=== PATIENT | male | born 1945 | race Caucasian/White ===

== ENCOUNTER → 2017-11-10 08:41 | Outpatient (CLI) | payer MEDICARE, BC, SELFPAY ==
[2017-11-10 09:51] LABS: Alanine Aminotransferase 37 U/L (12-78); Albumin Level 3.7 gm/dL (3.4-5.0); Albumin/Globulin Ratio 1.1 (1.1-1.8); Alkaline Phosphatase 78 U/L (46-116); Anion Gap 10.5 mEq/L (5-15); Aspartate Amino Transferase 14 U/L (15-37); Bilirubin,Total 0.5 mg/dL (0.2-1.0); Blood Urea Nitrogen 18 mg/dL (7-18); Calcium 9.1 mg/dL (8.5-10.1); Carbon Dioxide 32 mmol/L (21.0-32.0); Chloride 105 mmol/L (98-107); Chol/HDL Ratio 2.6 (1-3.5); Cholesterol 155 mg/dL (140-200); Creatinine,Serum 0.77 mg/dL (0.70-1.30); Estimated Glomerular Filt Rate 100 ml/min (>60); GFR (African American) 121 ML/MIN (>60); Globulin 3.5 gm/dl (1.3-3.2); Glucose 114 mg/dL (74-106); HDL Cholesterol 60 mg/dL (27-67); LDL Cholesterol 81 mg/dL (0-130); Potassium 4.5 mmoL/L (3.5-5.1); Sodium 143 mmol/L (136-145); Total Protein,Serum 7.2 gm/dL (6.4-8.2); Triglycerides 70 mg/dL (30-200); VLDL Cholesterol 14 mg/dL (0-40)
== END ==
PROVIDERS: Visit Provider Nurse Practitioner Family
DX: E78.5 Hyperlipidemia, unspecified (principal); I10 Essential (primary) hypertension
CPT/HCPCS: 36415; 80053; 80061

== ENCOUNTER → 2018-02-16 08:11 | Outpatient (CLI) | payer MEDICARE, BC, SELFPAY ==
[2018-02-16 09:10] LABS: Alanine Aminotransferase 31 U/L (12-78); Albumin Level 3.6 gm/dL (3.4-5.0); Albumin/Globulin Ratio 1.2 (1.1-1.8); Alkaline Phosphatase 76 U/L (46-116); Anion Gap 9.7 mEq/L (5-15); Aspartate Amino Transferase 21 U/L (15-37); Bilirubin,Total 0.6 mg/dL (0.2-1.0); Blood Urea Nitrogen 26 mg/dL (7-18); Calcium 8.9 mg/dL (8.5-10.1); Carbon Dioxide 30 mmol/L (21.0-32.0); Chloride 106 mmol/L (98-107); Chol/HDL Ratio 2.9 (1-3.5); Cholesterol 172 mg/dL (140-200); Creatinine,Serum 0.83 mg/dL (0.70-1.30); Estimated Glomerular Filt Rate 91 ml/min (>60); GFR (African American) 111 ML/MIN (>60); Glucose 111 mg/dL (74-106); HDL Cholesterol 59 mg/dL (27-67); LDL Cholesterol 100 mg/dL (0-130); Potassium 4.7 mmoL/L (3.5-5.1); Sodium 141 mmol/L (136-145); Total Protein,Serum 6.6 gm/dL (6.4-8.2); Triglycerides 64 mg/dL (30-200); VLDL Cholesterol 13 mg/dL (0-40)
[2018-02-16 09:13] LABS: Hemoglobin A1C 5.7 % (0.0-7.0)
== END ==
PROVIDERS: Visit Provider Nurse Practitioner Family
DX: E78.5 Hyperlipidemia, unspecified (principal); Z79.899 Other long term (current) drug therapy
CPT/HCPCS: 36415; 80053; 80061; 83036

== ENCOUNTER → 2018-03-02 09:00 | Outpatient (CLI) | payer MEDICARE, BC, SELFPAY ==
--- NOTE | 2018-03-02 09:02 | XR_ITS ---
XR foot wt bearing RT 3V HISTORY: ITS.REASON: pain ORDERING PHYSICIAN: Susanne Stauffer DPM PATIENT AGE: 72 years COMPARISON: None FINDINGS: No fracture or dislocation. No lytic or blastic change. There is normal mineralization.. The joint spaces are well-preserved. No significant degenerative/arthritic changes. No erosive changes evident. IMPRESSION: Negative, no acute finding
--- NOTE | 2018-03-02 09:02 | XR_ITS ---
XR foot wt bearing LT 3V HISTORY: ITS.REASON: pain ORDERING PHYSICIAN: Susanne Stauffer DPM PATIENT AGE: 72 years COMPARISON: None FINDINGS: No fracture or dislocation. No lytic or blastic change. There is normal mineralization.. The joint spaces are well-preserved. No significant degenerative/arthritic changes. No erosive changes evident. IMPRESSION: Negative, no acute finding
== END ==
PROVIDERS: Visit Provider Podiatrist
DX: M21.619 Bunion of unspecified foot (principal)
CPT/HCPCS: 73630

== ENCOUNTER → 2018-05-22 08:35 | Outpatient (CLI) | payer MEDICARE, BC, SELFPAY ==
[2018-05-22 09:38] LABS: Alanine Aminotransferase 29 U/L (12-78); Albumin Level 3.4 gm/dL (3.4-5.0); Albumin/Globulin Ratio 1.1 (1.1-1.8); Alkaline Phosphatase 77 U/L (46-116); Anion Gap 8.7 mEq/L (5-15); Aspartate Amino Transferase 16 U/L (15-37); Bilirubin,Total 0.6 mg/dL (0.2-1.0); Blood Urea Nitrogen 15 mg/dL (7-18); Calcium 8.8 mg/dL (8.5-10.1); Carbon Dioxide 32 mmol/L (21.0-32.0); Chloride 109 mmol/L (98-107); Chol/HDL Ratio 2.7 (1-3.5); Cholesterol 158 mg/dL (140-200); Creatinine,Serum 0.81 mg/dL (0.70-1.30); Estimated Glomerular Filt Rate 94 ml/min (>60); GFR (African American) 113 ML/MIN (>60); Glucose 94 mg/dL (74-106); HDL Cholesterol 58 mg/dL (27-67); LDL Cholesterol 79 mg/dL (0-130); Potassium 4.7 mmoL/L (3.5-5.1); Sodium 145 mmol/L (136-145); Total Protein,Serum 6.4 gm/dL (6.4-8.2); Triglycerides 103 mg/dL (30-200); VLDL Cholesterol 21 mg/dL (0-40)
== END ==
PROVIDERS: PCP Nurse Practitioner Family; Visit Provider Nurse Practitioner Family
DX: E78.5 Hyperlipidemia, unspecified (principal); I10 Essential (primary) hypertension
CPT/HCPCS: 36415; 80053; 80061

== ENCOUNTER → 2018-08-31 08:14 | Outpatient (CLI) | payer MEDICARE, BC, SELFPAY ==
[2018-08-31 09:36] LABS: Alanine Aminotransferase 38 U/L (12-78); Albumin Level 3.6 gm/dL (3.4-5.0); Albumin/Globulin Ratio 1.2 (1.1-1.8); Alkaline Phosphatase 79 U/L (46-116); Anion Gap 12.3 mEq/L (5-15); Aspartate Amino Transferase 22 U/L (15-37); Bilirubin,Total 0.6 mg/dL (0.2-1.0); Blood Urea Nitrogen 23 mg/dL (7-18); Calcium 8.7 mg/dL (8.5-10.1); Carbon Dioxide 28 mmol/L (21.0-32.0); Chloride 106 mmol/L (98-107); Chol/HDL Ratio 2.7 (1-3.5); Cholesterol 182 mg/dL (140-200); Creatinine,Serum 0.85 mg/dL (0.70-1.30); Estimated Glomerular Filt Rate 89 ml/min (>60); GFR (African American) 107 ML/MIN (>60); Globulin 3.1 gm/dl (1.3-3.2); Glucose 104 mg/dL (74-106); HDL Cholesterol 67 mg/dL (27-67); LDL Cholesterol 100 mg/dL (0-130); Potassium 4.3 mmoL/L (3.5-5.1); Sodium 142 mmol/L (136-145); Total Protein,Serum 6.7 gm/dL (6.4-8.2); Triglycerides 74 mg/dL (30-200); VLDL Cholesterol 15 mg/dL (0-40)
== END ==
PROVIDERS: Visit Provider Nurse Practitioner Family
DX: E78.5 Hyperlipidemia, unspecified (principal); I10 Essential (primary) hypertension
CPT/HCPCS: 36415; 80053; 80061

== ENCOUNTER → 2018-09-28 09:43 | Outpatient (CLI) | payer MEDICARE, BC, SELFPAY ==
[2018-09-30 11:59] LABS: PSA, Free 0.87 ng/mL; Prostate Specific Ag 5.4 ng/mL (0.0-4.0)
== END ==
PROVIDERS: Visit Provider Urology
DX: R97.20 Elevated prostate specific antigen [PSA] (principal)
CPT/HCPCS: 36415; 84153; 84154

== ENCOUNTER → 2018-12-07 08:13 | Outpatient (CLI) | payer MEDICARE, BC, SELFPAY ==
[2018-12-07 08:51] LABS: Basophils % 0.4 % (0.1-2.0); Eosinophils # 0.1 K/mm3 (0.0-0.4); Eosinophils % 1.6 % (0.1-12.0); Hematocrit 44.9 % (42.0-52.0); Hemoglobin 15.1 g/dL (14.1-18.0); Lymphocytes # 1.2 K/mm3 (0.7-4.5); Lymphocytes % 21.8 % (10-50); Mean Corpuscular HGB Conc 33.7 g/dL (31.8-35.4); Mean Corpuscular Hemoglobin 32.6 pg (27.0-31.2); Mean Corpuscular Volume 96.8 fl (80-94); Mean Platelet Volume 9.2 fl (7.4-10.4); Monocytes # 0.3 K/mm3 (0.1-1.0); Monocytes % 4.7 % (1.7-9.3); Neutrophils % 71.4 % (37.0-80.0); Platelet Count 157 K/mm3 (142-424); Red Blood Count 4.64 M/mm3 (4.60-6.20); Red Cell Distribution Width 12.9 % (11.5-17.5); White Blood Count 5.6 K/mm3 (4.8-10.8)
[2018-12-07 09:55] LABS: Alanine Aminotransferase 31 U/L (12-78); Albumin Level 3.7 gm/dL (3.4-5.0); Albumin/Globulin Ratio 1.2 (1.1-1.8); Alkaline Phosphatase 77 U/L (46-116); Anion Gap 13.3 mEq/L (5-15); Aspartate Amino Transferase 22 U/L (15-37); Bilirubin,Total 0.6 mg/dL (0.2-1.0); Blood Urea Nitrogen 19 mg/dL (7-18); Calcium 8.9 mg/dL (8.5-10.1); Carbon Dioxide 27 mmol/L (21.0-32.0); Chloride 106 mmol/L (98-107); Chol/HDL Ratio 2.8 (1-3.5); Cholesterol 167 mg/dL (140-200); Creatinine,Serum 0.84 mg/dL (0.70-1.30); Estimated Glomerular Filt Rate 90 ml/min (>60); GFR (African American) 109 ML/MIN (>60); Globulin 3.2 gm/dl (1.3-3.2); Glucose 117 mg/dL (74-106); HDL Cholesterol 59 mg/dL (27-67); LDL Cholesterol 97 mg/dL (0-130); Potassium 4.3 mmoL/L (3.5-5.1); Sodium 142 mmol/L (136-145); Total Protein,Serum 6.9 gm/dL (6.4-8.2); Triglycerides 57 mg/dL (30-200); VLDL Cholesterol 11 mg/dL (0-40)
== END ==
PROVIDERS: Visit Provider Nurse Practitioner Family
DX: J44.9 Chronic obstructive pulmonary disease, unspecified (principal); E78.5 Hyperlipidemia, unspecified; I10 Essential (primary) hypertension
CPT/HCPCS: 36415; 80053; 80061; 85025

== ENCOUNTER → 2018-12-11 11:40 | Outpatient (CLI) | payer MEDICARE, BC, SELFPAY ==
--- NOTE | 2018-12-11 11:46 | XR_ITS ---
XR chest 2V HISTORY: Follow-up asbestos exposure ITS.REASON: COPD ORDERING PHYSICIAN: Jacqueline Beck PATIENT AGE: 73 years COMPARISON: 08/15/2017 FINDINGS: The cardiomediastinal silhouette and pulmonary vascularity are within normal limits. Increased markings are present in the right lung base medially. This is somewhat more prominent today compared to the previous exam and could be related to the technique with slight decrease in inspiration. True parenchymal pathology however is also considered. Chest CT may be of further value in this patient with history of asbestos exposure. No other significant anomalies are evident. There are degenerative changes in the thoracic spine. No pleural or diaphragmatic calcification apparent. IMPRESSION: Slight increased markings right lung base medially which may be related underlying infiltrate or volume loss. Follow-up suggested
== END ==
PROVIDERS: PCP Nurse Practitioner Family; Visit Provider Nurse Practitioner Family
DX: J44.9 Chronic obstructive pulmonary disease, unspecified (principal)
CPT/HCPCS: 71046

== ENCOUNTER → 2018-12-22 12:04 | Outpatient (CLI) | payer MEDICARE, BC, SELFPAY ==
[2018-12-22 12:48] LABS: Blood Urea Nitrogen 17 mg/dL (7-18); Creatinine,Serum 0.91 mg/dL (0.70-1.30); Estimated Glomerular Filt Rate 82 ml/min (>60); GFR (African American) 99 ML/MIN (>60)
--- NOTE | 2018-12-22 12:54 | CT_ITS ---
CT chest w con HISTORY: COPD, asbestos exposure, abnormal chest x-ray, possible interstitial lung disease ITS.REASON: ABNORMAL CXR ORDERING PHYSICIAN: Jacqueline Beck APRN PATIENT AGE: 73 years COMPARISON: None TECHNIQUE: Axial images obtained following the administration of 75 mL of Optiray 350 . Sagittal, and coronal reformatted images are also generated and reviewed. All CT scans at the facility use one or more dose reduction, viz: automated exposure control, ma/kV adjustment per patient size (including targeted exams where dose is matched to indication, i.e. head), or iterative reconstruction technique. FINDINGS: Atheromatous calcification involves the aorta. No evidence of aortic aneurysm or dissection. There are coronary artery calcifications also noted. Normal heart size. No evidence of central pulmonary embolus. No mediastinal or hilar mass or adenopathy. There is a 4 mm noncalcified nodule right lower lobe posterior laterally series 3 # 58. A calcified granuloma is present in the right lung base. No evidence of the initial lung disease infiltrates or effusions. There are minimal atelectatic changes in the left lung base. No acute bony anomalies. IMPRESSION: 1. No acute finding. No evidence of interstitial lung disease or pleural or diaphragmatic plaque or calcification.. 2. Coronary artery calcifications suggesting coronary artery disease. 3. There is a 4 mm noncalcified nodule in the right lower lobe nonspecific. 12 month follow-up suggested
== END ==
PROVIDERS: Visit Provider Nurse Practitioner Family
DX: R93.89 Abnormal findings on diagnostic imaging of other specified body structures (principal)
CPT/HCPCS: 36415; 71260; 82565; 84520

== ENCOUNTER → 2019-03-08 07:33 | Outpatient (CLI) | payer MEDICARE, BC, SELFPAY ==
[2019-03-08 08:21] LABS: Basophils % 0.6 % (0.1-2.0); Eosinophils # 0.1 K/mm3 (0.0-0.4); Eosinophils % 1.6 % (0.1-12.0); Hematocrit 48.5 % (42.0-52.0); Hemoglobin 14.8 g/dL (14.1-18.0); Lymphocytes # 1.4 K/mm3 (0.7-4.5); Lymphocytes % 23.1 % (10-50); Mean Corpuscular HGB Conc 30.5 g/dL (31.8-35.4); Mean Corpuscular Hemoglobin 31.5 pg (27.0-31.2); Mean Corpuscular Volume 103.1 fl (80-94); Mean Platelet Volume 9.1 fl (7.4-10.4); Monocytes # 0.4 K/mm3 (0.1-1.0); Monocytes % 6.4 % (1.7-9.3); Neutrophils # 4.2 K/mm3 (1.8-7.8); Neutrophils % 68.4 % (37.0-80.0); Platelet Count 185 K/mm3 (142-424); Red Blood Count 4.71 M/mm3 (4.60-6.20); Red Cell Distribution Width 13.2 % (11.5-17.5); White Blood Count 6.1 K/mm3 (4.8-10.8)
[2019-03-08 10:18] LABS: Alanine Aminotransferase 37 U/L (12-78); Albumin Level 3.5 gm/dL (3.4-5.0); Albumin/Globulin Ratio 1.1 (1.1-1.8); Alkaline Phosphatase 77 U/L (46-116); Anion Gap 11.3 mEq/L (5-15); Aspartate Amino Transferase 22 U/L (15-37); Bilirubin,Total 0.7 mg/dL (0.2-1.0); Blood Urea Nitrogen 20 mg/dL (7-18); Calcium 9.1 mg/dL (8.5-10.1); Carbon Dioxide 29 mmol/L (21.0-32.0); Chloride 105 mmol/L (98-107); Chol/HDL Ratio 2.8 (1-3.5); Cholesterol 164 mg/dL (140-200); Creatinine,Serum 0.76 mg/dL (0.70-1.30); Estimated Glomerular Filt Rate 101 ml/min (>60); GFR (African American) 122 ML/MIN (>60); Globulin 3.1 gm/dl (1.3-3.2); Glucose 97 mg/dL (74-106); HDL Cholesterol 59 mg/dL (27-67); LDL Cholesterol 90 mg/dL (0-130); Potassium 4.3 mmoL/L (3.5-5.1); Sodium 141 mmol/L (136-145); Total Protein,Serum 6.6 gm/dL (6.4-8.2); Triglycerides 76 mg/dL (30-200); VLDL Cholesterol 15 mg/dL (0-40)
[2019-03-08 11:49] LABS: Hemoglobin A1C 5.8 % (0.0-7.0)
== END ==
PROVIDERS: Visit Provider Nurse Practitioner Family
DX: J44.9 Chronic obstructive pulmonary disease, unspecified (principal); R73.9 Hyperglycemia, unspecified; I10 Essential (primary) hypertension; E78.5 Hyperlipidemia, unspecified
CPT/HCPCS: 36415; 80053; 80061; 83036; 85025

== ENCOUNTER → 2019-03-30 14:13 | Outpatient (CLI) | payer MEDICARE, BC, SELFPAY ==
[2019-03-30 15:57] LABS: Prostate Specific Ag Screen 4.9 ng/mL (0.0-4.0)
[2019-04-01 18:36] LABS: PSA, Free 0.84 ng/mL; Prostate Specific Ag 4.6 ng/mL (0.0-4.0)
== END ==
PROVIDERS: Visit Provider Urology
DX: R97.20 Elevated prostate specific antigen [PSA] (principal); Z12.5 Encounter for screening for malignant neoplasm of prostate
CPT/HCPCS: 36415; 84153; 84154; G0103

== ENCOUNTER → 2019-05-21 13:03 | Outpatient (CLI) | payer MEDICARE, BC, SELFPAY ==
--- NOTE | 2019-05-21 13:06 | XR_ITS ---
PROCEDURE: XR ANKLE WT BEARING RT MIN 3V CLINICAL INDICATION: pain COMPARISON: No exams were available for comparison FINDINGS: No fracture, dislocation, lytic change, or blastic change evident. No significant degenerative change IMPRESSION: No acute findings. Dictated by: Tripp Barba MD 05/21/2019 13:50 Electronically signed by rTipp Barba MD in [facility] 05/21/2019 13:52
--- NOTE | 2019-05-21 13:06 | XR_ITS ---
PROCEDURE: XR ANKLE WT BEARING LT MIN 3V CLINICAL INDICATION: pain COMPARISON: No exams were available for comparison FINDINGS: No fracture, dislocation, lytic change, or blastic change evident. No significant degenerative change. Generalized vascular calcification. Small Achilles enthesophyte IMPRESSION: No acute findings. Dictated by: Tripp Barba MD 05/21/2019 14:14 Electronically signed by Tripp Barba MD in [facility] 05/21/2019 14:14
--- NOTE | 2019-05-21 13:06 | XR_ITS ---
PROCEDURE: XR FOOT WT BEARING LT 3V CLINICAL INDICATION: pain COMPARISON: [id number] XR foot wt bearing LT 3V from 03/02/2018 [id number] XR foot wt bearing RT 3V from 03/02/2018 FINDINGS: No fracture or dislocation. No lytic or blastic change. There is normal mineralization. The joint spaces are well-preserved. No significant degenerative/arthritic changes. No erosive changes evident. Other findings:There is some cortical irregularity involving the base of the proximal phalanx of the 5th digit which could be due to an old fracture having a somewhat similar appearance on 03/02/2018. Enthesophyte is present at the Achilles insertion. IMPRESSION: No change with no acute finding. Dictated by: Tripp Barba MD 05/21/2019 13:38 Electronically signed by Tripp Barba MD in [facility] 05/21/2019 13:38
--- NOTE | 2019-05-21 13:06 | XR_ITS ---
PROCEDURE: XR FOOT WT BEARING RT 3V CLINICAL INDICATION: pain COMPARISON: [id number] XR foot wt bearing LT 3V from 03/02/2018 [id number] XR foot wt bearing RT 3V from 03/02/2018 FINDINGS: No fracture or dislocation. No lytic or blastic change. There is normal mineralization. The joint spaces are well-preserved. No significant degenerative/arthritic changes. No erosive changes evident. Other findings:None. IMPRESSION: No acute findings. Dictated by: Tripp Barba MD 05/21/2019 14:15 Electronically signed by Tripp Barba MD in [facility] 05/21/2019 14:15
== END ==
PROVIDERS: PCP Emergency Medicine; Visit Provider Podiatrist
DX: M25.572 Pain in left ankle and joints of left foot (principal); M25.571 Pain in right ankle and joints of right foot; M79.602 Pain in left arm; M79.601 Pain in right arm
CPT/HCPCS: 73610; 73630

== ENCOUNTER → 2019-07-28 08:04 | Outpatient (CLI) | payer MEDICARE, BC, SELFPAY ==
[2019-07-28 09:19] LABS: Basophils % 0.4 % (0.1-2.0); Eosinophils # 0.1 K/mm3 (0.0-0.4); Eosinophils % 1.4 % (0.1-12.0); Hematocrit 46.4 % (42.0-52.0); Hemoglobin 14.8 g/dL (14.1-18.0); Lymphocytes # 1.4 K/mm3 (0.7-4.5); Lymphocytes % 14.4 % (10-50); Mean Corpuscular Hemoglobin 32.3 pg (27.0-31.2); Mean Corpuscular Volume 101.1 fl (80-94); Mean Platelet Volume 9.3 fl (7.4-10.4); Monocytes # 0.4 K/mm3 (0.1-1.0); Monocytes % 4.7 % (1.7-9.3); Neutrophils # 7.4 K/mm3 (1.8-7.8); Neutrophils % 79.2 % (37.0-80.0); Platelet Count 167 K/mm3 (142-424); Red Blood Count 4.59 M/mm3 (4.60-6.20); Red Cell Distribution Width 13.1 % (11.5-17.5); White Blood Count 9.4 K/mm3 (4.8-10.8)
[2019-07-28 10:23] LABS: Alanine Aminotransferase 25 U/L (12-78); Albumin Level 3.5 gm/dL (3.4-5.0); Albumin/Globulin Ratio 1.1 (1.1-1.8); Alkaline Phosphatase 78 U/L (46-116); Anion Gap 13.3 mEq/L (5-15); Aspartate Amino Transferase 21 U/L (15-37); Bilirubin,Total 0.6 mg/dL (0.2-1.0); Blood Urea Nitrogen 19 mg/dL (7-18); Calcium 8.7 mg/dL (8.5-10.1); Carbon Dioxide 28 mmol/L (21.0-32.0); Chloride 105 mmol/L (98-107); Chol/HDL Ratio 2.5 (1-3.5); Cholesterol 165 mg/dL (140-200); Estimated Glomerular Filt Rate 95 ml/min (>60); GFR (African American) 115 ML/MIN (>60); Globulin 3.1 gm/dl (1.3-3.2); Glucose 93 mg/dL (74-106); HDL Cholesterol 65 mg/dL (27-67); LDL Cholesterol 88 mg/dL (0-130); Potassium 4.3 mmoL/L (3.5-5.1); Sodium 142 mmol/L (136-145); T4 (Thyroxine) 9.4 ug/dl (4.7-13.3); Total Protein,Serum 6.6 gm/dL (6.4-8.2); Triglycerides 58 mg/dL (30-200); VLDL Cholesterol 12 mg/dL (0-40)
[2019-07-30 07:47] LABS: Vitamin B12 631 pg/mL (232-1245)
[2019-07-30 07:48] LABS: Vitamin D 25 Hydroxy 36.1 ng/mL (30.0-100.0)
== END ==
PROVIDERS: Visit Provider Emergency Medicine
DX: E78.5 Hyperlipidemia, unspecified (principal); I10 Essential (primary) hypertension; R53.83 Other fatigue; M25.511 Pain in right shoulder
CPT/HCPCS: 36415; 80053; 80061; 82607; 82652; 84436; 84443; 85025

== ENCOUNTER → 2019-08-03 09:36 | Outpatient (CLI) | payer MEDICARE, BC, SELFPAY ==
[2019-08-04 17:54] LABS: Folate >20.0 ng/mL (>3.0); Vitamin B12 553 pg/mL (232-1245)
== END ==
PROVIDERS: Visit Provider Emergency Medicine
DX: I10 Essential (primary) hypertension (principal)
CPT/HCPCS: 36415; 82607; 82746

== ENCOUNTER → 2019-09-26 09:49 | Outpatient (CLI) | payer MEDICARE, BC, SELFPAY ==
[2019-09-27 17:03] LABS: PSA, Free 0.96 ng/mL; Prostate Specific Ag 4.7 ng/mL (0.0-4.0)
== END ==
PROVIDERS: Visit Provider Urology
DX: R97.20 Elevated prostate specific antigen [PSA] (principal)
CPT/HCPCS: 36415; 84153; 84154

== ENCOUNTER → 2019-11-14 09:53 | Outpatient (CLI) | payer MEDICARE, BC, SELFPAY ==
--- NOTE | 2019-11-14 09:53 | MR_ITS ---
PROCEDURE: MR LUMBAR SPINE WO CON CLINICAL INDICATION: back pain Low back pain, left leg pain. Left foot numbness and tingling COMPARISON: VETERINARY PHYSIOLOGIST/O MRI-L-SPINE W/O from 12/23/2014 TECHNIQUE: Standard multiplanar multiecho sequences are performed without contrast. 3-D MIP and myelographic images are also rendered and reviewed FINDINGS: There is normal alignment. The spinal cord ends at the L1-L2 level. T11-T12: Mild degenerative disc disease. T12-L1: Mild degenerative disc disease. L1-L2: Mild degenerative disc disease. L2-L3: Mild degenerative disc disease with minimal concentric bulging disc. L3-L4: Mild degenerative disc disease with minimal concentric bulging disc. There is mild bilateral foraminal narrowing with mild facet and ligamentum hypertrophy. This is not significantly changed. L4-5: Mild degenerative disc disease with minimal bulging disc and mild facet and ligamentum hypertrophy with mild bilateral foraminal narrowing not significantly changed. L5-S1: Mild degenerative disc disease with small concentric bulging disc and mild facet ligamentum hypertrophy with mild bilateral foraminal narrowing not significantly changed. No extruded herniated disc or canal stenosis. Parapelvic renal cysts are noted bilaterally. IMPRESSION: 1. Mild multilevel degenerative disc disease with bulging disc along with facet ligamentum hypertrophy with mild foraminal narrowing overall not significantly changed and described above in detail. 2. No extruded herniated disc or canal stenosis. Dictated by: Tripp Barba MD 11/15/2019 11:18 Electronically signed by Tripp Barba MD in [facility] 11/15/2019 11:18
== END ==
PROVIDERS: PCP Emergency Medicine; Visit Provider Emergency Medicine
DX: M54.16 Radiculopathy, lumbar region (principal); M54.5 Low back pain
CPT/HCPCS: 72148; 76376

== ENCOUNTER → 2020-01-04 16:22 | Outpatient (CLI) | payer MEDICARE, BC, SELFPAY ==
[2020-01-04 16:33] LABS: Basophils # 0.1 K/mm3 (0-0.2); Basophils % 0.9 % (0.1-2.0); Eosinophils # 0.1 K/mm3 (0.0-0.4); Eosinophils % 1.4 % (0.1-12.0); Hematocrit 44.6 % (42.0-52.0); Hemoglobin 14.3 g/dL (14.1-18.0); Lymphocytes # 1.2 K/mm3 (0.7-4.5); Lymphocytes % 19.1 % (10-50); Mean Corpuscular HGB Conc 32.1 g/dL (31.8-35.4); Mean Corpuscular Hemoglobin 31.7 pg (27.0-31.2); Mean Corpuscular Volume 98.8 fl (80-94); Mean Platelet Volume 10.4 fl (7.4-10.4); Monocytes # 0.5 K/mm3 (0.1-1.0); Monocytes % 6.9 % (1.7-9.3); Neutrophils # 4.7 K/mm3 (1.8-7.8); Neutrophils % 71.7 % (37.0-80.0); Platelet Count 200 K/mm3 (142-424); Red Blood Count 4.51 M/mm3 (4.60-6.20); Red Cell Distribution Width 13.4 % (11.5-17.5); White Blood Count 6.5 K/mm3 (4.8-10.8)
[2020-01-04 17:08] LABS: Alanine Aminotransferase 28 U/L (12-78); Albumin Level 4.4 g/dl (3.5-5.0); Albumin/Globulin Ratio 1.8 (1.1-1.8); Alkaline Phosphatase 75 U/L (38-126); Anion Gap 9.4 mEq/L (5-15); Aspartate Amino Transferase 36 U/L (17-59); Bilirubin,Total 0.7 mg/dl (0.2-1.3); Blood Urea Nitrogen 24 mg/dl (9-20); Calcium 9.6 mg/dl (8.4-10.2); Carbon Dioxide 26 mmol/L (22.0-30.0); Chloride 104 mmol/L (98-107); Chol/HDL Ratio 2.5 (1-3.5); Cholesterol 157 mg/dl (140-200); Estimated Glomerular Filt Rate 95 ml/min (>60); GFR (African American) 115 ML/MIN (>60); Globulin 2.5 g/dL (1.3-3.2); Glucose 126 mg/dl (74-100); HDL Cholesterol 62 mg/dl (40-60); Potassium 4.4 mmoL/L (3.5-5.1); Sodium 135 mmol/L (136-145); Total Protein,Serum 6.9 g/dl (6.3-8.2); Triglycerides 100 mg/dl (30-150); VLDL Cholesterol 20 mg/dL (0-40)
[2020-01-04 17:25] LABS: T4 (Thyroxine) 8.3 ug/dl (5.53-11.0)
[2020-01-04 17:54] LABS: Direct LDL Cholesterol 98.66 mg/dL (100-129)
[2020-01-06 09:32] LABS: Vitamin D 25 Hydroxy 39.9 ng/mL (30.0-100.0)
[2020-01-08 15:22] LABS: Folate >20.0 ng/mL (>3.0); Vitamin B12 708 pg/mL (232-1245)
== END ==
PROVIDERS: Physician Assistant; Visit Provider Emergency Medicine
DX: I10 Essential (primary) hypertension (principal); R71.8 Other abnormality of red blood cells
CPT/HCPCS: 80053; 80061; 82607; 82652; 82746; 84436; 84443; 85025

== ENCOUNTER → 2020-04-10 08:58 | Outpatient (CLI) | payer MEDICARE, BC, SELFPAY ==
--- NOTE | 2020-04-10 09:04 | XR_ITS ---
PROCEDURE: XR CHEST 2V CLINICAL HISTORY: COPD COMPARISON: CR CXR CHEST(2 VIEWS-NOT PORTABLE) from 05/26/2017 DX CXR CHEST(2 VIEWS-NOT PORTABLE) from 08/15/2017 CR CXR2V XR chest 2V from 12/11/[address] chest w con from 12/22/2018 FINDINGS: The cardiomediastinal silhouette and pulmonary vascularity are within normal limits. No lobar consolidation or collapse is evident. There is chronic coarsening of the bronchovascular markings in the lung bases overall not significantly changed. No acute bony abnormalities. IMPRESSION: No change with no acute finding Dictated b Tripp Barba MD 04/10/2020 12:11 Tripp Barba MD in [facility] 04/10/2020 12:11
== END ==
PROVIDERS: PCP Emergency Medicine; Visit Provider Emergency Medicine
DX: J44.9 Chronic obstructive pulmonary disease, unspecified (principal)
CPT/HCPCS: 71046

== ENCOUNTER 2020-05-31 10:22 | Emergency (ER) | payer MEDICARE, BC, SELFPAY ==
[2020-05-31 10:24] VITALS: BP 172/75; PULSE 69; RESP 16; TEMP 36.4; O2SAT 97; BMI 30.5
--- NOTE | 2020-05-31 10:31 | ECG_ITS ---
APPROVED REPORT Exam: Resting ECG HR:62 bpm ECG Measurements Heart Rate 62 AXES TN 186 P 69 QRSd 84 QRS 40 QT 390 T 67 QTc 395 <Conclusion> Normal sinus rhythm Normal ECG Electronically signed by : Juma Raymond, 06/01/2020 09:02:43
--- NOTE | 2020-05-31 10:34 | XR_ITS ---
PROCEDURE: XR CHEST 2V CLINICAL HISTORY: BASELINE Hypertension COMPARISON: DX CXR CHEST(2 VIEWS-NOT PORTABLE) from 08/15/2017 CR CXR2V XR chest 2V from 12/11/[address] chest w con from 12/22/2018 CR XR CHEST 2V from 04/10/2020 FINDINGS: Mild emphysematous changes seen with hyperexpansion lung devries and flattening of the hemidiaphragms. There is no infiltrate. There is minimal atelectasis or more likely postinflammatory scarring at the left cardiophrenic angle. Cardiac size is normal and vascularity is normal and there is no pleural fluid. There are mild multilevel degenerate changes of the thoracic spine. IMPRESSION: Mild COPD, no acute chest pathology noted Dictated by: Dr. Julio Wolfe MD 05/31/2020 11:15 Dr. Julio Wolfe MD in [place] 05/31/2020 11:15
--- NOTE | 2020-05-31 10:34 | CT_ITS ---
PROCEDURE: CT HEAD/BRAIN WO CON CLINICAL INDICATION: DIZZINESS Hypertension COMPARISON: No exams were available for comparison TECHNIQUE: Axial images obtained. All CT scans at the facility use one or more dose reduction, viz: automated exposure control, ma/kV adjustment per patient size (including targeted exams where dose is matched to indication, i.e. head), or iterative reconstruction technique. . FINDINGS: No midline shift, mass effect, intracranial hemorrhage, hydrocephalus, or extra-axial fluid collection is evident. The sylvian fissures and cortical sulci are mildly prominent. There are mild periventricular hypodensities bilaterally consistent with mild chronic ischemic white matter changes. The calvarium has an unremarkable appearance. No mastoid effusion. Both internal auditory canals appear normal. No sinus air-fluid level. IMPRESSION: Findings of mild age-appropriate cortical atrophy and mild chronic white matter changes, no acute intracranial pathology noted Dictated by: Dr. Julio Wolfe MD 05/31/2020 11:19 Dr. Julio Wolfe MD in [facility] 05/31/2020 11:19
--- NOTE | 2020-05-31 10:35 | [facility].EDGENADL ---
ED Disposition Clinical Impression: Vertigo Disposition: Home, Self-Care Condition on Discharge: Good Instructions: DI for Vertigo Additional Instructions: Antivert as needed for dizziness. Follow-up this coming week with Dr. Spann for recheck of your dizziness and also elevated blood sugar. Your blood sugar today was 166. Return to the emergency room if worsening dizziness, unable to walk, severe vomiting, or new symptoms such as numbness or weakness of arms or legs, vision changes, or difficulty speaking. Prescriptions: Meclizine HCl [Antivert 25mg tablet] 25 mg PO TIDP PRN #15 tab PRN Reason: Vertigo Prescription Printed Referrals: Bobby Spann MD [Primary Care Provider] - - Critical Care Critical Care Time: No Attestation: On , the high probability of a clinically significant, sudden or life threatening deterioration of the following system(s) required my full and direct attention, intervention and personal management. The time I documented below is in addition to time spent performing reported procedures but includes the following listed in this critical care notation. Medical Decision Making - Medical Records Medical records reviewed: Yes: I reviewed the patient's medical records. - Willie Inquiry Pt receiving controlled substance: No Vital Signs: 05/31/20 10:24 05/31/20 10:40 05/31/20 10:57 Temperature 97.6 F Temperature Source Oral Pulse Rate Pulse Rate [Orthostatic Lying Radial] 69 Pulse Rate [Orthostatic Sitting Radial] 70 Pulse Rate [Orthostatic Standing Radial] 64 Pulse Rate [Right] 69 61 Respiratory Rate 16 Blood Pressure Blood Pressure [Orthostatic Lying Right Arm] 172/75 H Blood Pressure [Orthostatic Sitting Right Arm] 145/74 H Blood Pressure [Orthostatic Standing Right Arm] 161/70 H Blood Pressure [Right Arm] 172/75 H 137/65 Blood Pressure Mean [Right Arm] 107 89 Blood Pressure Source [Right Arm] Automatic Cuff Blood Pressure Position [Right Arm] Sitting 02 Sat by Pulse Oximetry 97 98 Oxygen Delivery Method Room Air 05/31/20 11:42 Temperature 98.2 F Temperature Source Pulse Rate 70 Pulse Rate [Orthostatic Lying Radial] Pulse Rate [Orthostatic Sitting Radial] Pulse Rate [Orthostatic Standing Radial] Pulse Rate [Right] Respiratory Rate 17 Blood Pressure 140/87 Blood Pressure [Orthostatic Lying Right Arm] Blood Pressure [Orthostatic Sitting Right Arm] Blood Pressure [Orthostatic Standing Right Arm] Blood Pressure [Right Arm] Blood Pressure Mean [Right Arm] Blood Pressure Source [Right Arm] Blood Pressure Position [Right Arm] 02 Sat by Pulse Oximetry Oxygen Delivery Method - Lab Data Lab results reviewed: Yes: I reviewed the patient's lab results. Lab Results 05/31/20 10:30: WBC 6.3, RBC 4.63, Hgb 15.6, Hct 45.9, MCV 99.2 H, MCH 33.6 H, MCHC 33.9, RDW 13.4, Plt Count 168, MPV 8.7, Neut % (Auto) 72.6, Lymph % (Auto) 19.4, [place] % (Auto) 6.1, Eos % (Auto) 1.2, Baso % (Auto) 0.7, Neut # (Auto) 4.6, Lymph # (Auto) 1.2, [place] # (Auto) 0.4, Eos # (Auto) 0.1, Baso # (Auto) 0.0 05/31/20 10:30: Sodium 140, Potassium 4.4, Chloride 104, Carbon Dioxide 29, Anion Gap 11.4, BUN 24 H, Creatinine 0.70, Estimated Creat Clear 86, Estimated GFR 110, Est GFR ( Amer) 133, Glucose 166 H, Calcium 9.3, Total Bilirubin 0.5, AST 30, ALT 27, Alkaline Phosphatase 81, Troponin I < 0.01, Total Protein 7.1, Albumin 4.2, Globulin 2.9, Albumin/Globulin Ratio 1.4 Result diagrams: 05/31/20 10:30 05/31/20 10:30 Orders (Tests/Meds): ED MEDICATIONS Discontinued Medications Generic Name Dose Route Start Last Admin Trade Name Jitendraq PRN Reason Stop Dose Admin Sodium Chloride 1,000 mls @ 999 mls/hr 05/31/20 10:45 05/31/20 10:55 Sod Chlor 0.9% 1000ml Bag IV 05/31/20 11:45 999 mls/hr .Q1H1M GIULIA Administration Meclizine HCl 25 mg 05/31/20 11:16 05/31/20 11:24 Meclizine 25mg Tablet PO 05/31/20 11:17 25 mg ONCE ONE A
[2020-05-31 10:40] VITALS: BP 145/74; BP 161/70; BP 172/75; PULSE 64; PULSE 69; PULSE 70
[2020-05-31 10:43] LABS: Basophils % 0.7 % (0.1-2.0); Eosinophils # 0.1 K/mm3 (0.0-0.4); Eosinophils % 1.2 % (0.1-12.0); Hematocrit 45.9 % (42.0-52.0); Hemoglobin 15.6 g/dL (14.1-18.0); Lymphocytes # 1.2 K/mm3 (0.7-4.5); Lymphocytes % 19.4 % (10-50); Mean Corpuscular HGB Conc 33.9 g/dL (31.8-35.4); Mean Corpuscular Hemoglobin 33.6 pg (27.0-31.2); Mean Corpuscular Volume 99.2 fl (80-94); Mean Platelet Volume 8.7 fl (7.4-10.4); Monocytes # 0.4 K/mm3 (0.1-1.0); Monocytes % 6.1 % (1.7-9.3); Neutrophils # 4.6 K/mm3 (1.8-7.8); Neutrophils % 72.6 % (37.0-80.0); Platelet Count 168 K/mm3 (142-424); Red Blood Count 4.63 M/mm3 (4.60-6.20); Red Cell Distribution Width 13.4 % (11.5-17.5); White Blood Count 6.3 K/mm3 (4.8-10.8)
[2020-05-31 10:49] LABS: Chloride 104 mmol/L (98-107); Potassium 4.4 mmoL/L (3.5-5.1); Sodium 140 mmol/L (136-145)
[2020-05-31 10:52] LABS: Alanine Aminotransferase 27 U/L (12-78); Albumin Level 4.2 g/dl (3.5-5.0); Albumin/Globulin Ratio 1.4 (1.1-1.8); Alkaline Phosphatase 81 U/L (38-126); Anion Gap 11.4 mEq/L (5-15); Aspartate Amino Transferase 30 U/L (17-59); Bilirubin,Total 0.5 mg/dl (0.2-1.3); Blood Urea Nitrogen 24 mg/dl (9-20); Carbon Dioxide 29 mmol/L (22.0-30.0); Creatinine Clearance Estimated 86 mL/min (50-200); Estimated Glomerular Filt Rate 110 ml/min (>60); GFR (African American) 133 ML/MIN (>60); Globulin 2.9 g/dL (1.3-3.2); Total Protein,Serum 7.1 g/dl (6.3-8.2)
[2020-05-31 10:53] LABS: Calcium 9.3 mg/dl (8.4-10.2); Glucose 166 mg/dl (74-100)
[2020-05-31 10:57] VITALS: BP 137/65; PULSE 61; O2SAT 98
[2020-05-31 11:06] LABS: Troponin I < 0.01 ng/ml (0.00-0.034)
[2020-05-31 11:42] VITALS: BP 140/87; PULSE 70; RESP 17; TEMP 36.8; O2SAT 96
== END 2020-05-31 11:43 | disposition home or self-care (01) ==
PROVIDERS: Emergency Provider Emergency Medicine; PCP Emergency Medicine
DX: R42 Dizziness and giddiness (principal); J44.9 Chronic obstructive pulmonary disease, unspecified; E78.5 Hyperlipidemia, unspecified; I10 Essential (primary) hypertension; Z88.1 Allergy status to other antibiotic agents; Z87.891 Personal history of nicotine dependence; Z79.899 Other long term (current) drug therapy
CPT/HCPCS: 70450; 71046; 80053; 84484; 85025; 93005; 96365; 99283

== ENCOUNTER → 2020-07-02 12:48 | Outpatient (CLI) | payer MEDICARE, BC, SELFPAY ==
--- NOTE | 2020-07-02 12:48 | MR_ITS ---
PROCEDURE: MR ANGIO NECK WO CON CLINICAL INDICATION: Vertigo DIZZINESS XYRS BUT HAS GOTTEN WORSE. NO PRIOR. COMPARISON: No exams were available for comparison TECHNIQUE: 3D [id number] images are obtained without contrast with multi slab reformats FINDINGS: There is moderate degree of motion artifact. There is moderate tortuosity of the internal carotid arteries however, no significant stenosis or occlusion or dissection evident. Vertebrals have an unremarkable appearance IMPRESSION: Negative MRA of the neck Dictated by: Tripp Barba MD 07/03/2020 13:40 Tripp Barba MD in [facility] 07/03/2020 13:40
--- NOTE | 2020-07-02 12:48 | MR_ITS ---
PROCEDURE: MR HEAD/BRAIN WO CON CLINICAL INDICATION: vertigo DIZZINESS XYRS BUT HAS GOTTEN WORSE. PRIOR CT 05-31-20 COMPARISON: CT CT HEAD/BRAIN WO CON from 05/31/2020 TECHNIQUE: Routine multiplanar multi echo sequences are performed without gadolinium enhancement. FINDINGS: No midline shift, mass effect, intracranial hemorrhage, or hydrocephalus is evident. There is mild generalized atrophy. The cerebellopontine angles and cerebellum have an unremarkable appearance. There is tortuosity of the left vertebral artery which is causing compression upon the midbrain on the left. This is of questionable clinical significance. Unremarkable white matter signal intensity. The pituitary, optic chiasm, and optic chiasm have an unremarkable appearance there is a retention cyst in the floor the right maxillary sinus at 2 cm. There is a small amount of fluid signal intensity in the left mastoid sinus and the right mastoid sinus.. IMPRESSION: 1. No acute intracranial findings. 2. There is tortuosity of the left vertebral artery which is causing compression upon the left and anterior aspect of the brainstem. This is of questionable clinical significance and correlation with clinical findings are needed. 3. Mild bilateral mastoid sinus disease Dictated by: Tripp Barba MD 07/03/2020 13:24 Tripp Barba MD in [facility] 07/03/2020 13:24
== END ==
PROVIDERS: PCP Emergency Medicine; Visit Provider Emergency Medicine
DX: R42 Dizziness and giddiness (principal)
CPT/HCPCS: 70547; 70551

== ENCOUNTER → 2020-07-07 10:16 | Outpatient (CLI) | payer MEDICARE, BC, SELFPAY ==
[2020-07-07 12:06] LABS: Coronavirus 19 IgG Antibody Negative (Negative); Coronavirus 19 IgM Antibody Negative (Negative)
== END ==
PROVIDERS: Visit Provider Ophthalmology
DX: Z01.818 Encounter for other preprocedural examination (principal)
CPT/HCPCS: 36415; 86328

== ENCOUNTER 2020-07-08 08:01 | Day surgery (SDC) | payer MEDICARE, BC, SELFPAY ==
[2020-07-02 10:17] VITALS: BMI 31.0
[2020-07-08 09:50] VITALS: BP 155/80; PULSE 57; RESP 16; TEMP 36.6; O2SAT 100
[2020-07-08 10:24] VITALS: BP 165/73; PULSE 53; RESP 16; TEMP 36.4; O2SAT 99
== END 2020-07-08 11:30 | disposition home or self-care (01) ==
LOC: OUTP 08:02
PROVIDERS: PCP Emergency Medicine; Visit Provider Ophthalmology
PROC: (CPT 66821; principal; 2020-07-08 10:00)
DX: H25.811 Combined forms of age-related cataract, right eye (principal); Z96.1 Presence of intraocular lens; H43.393 Other vitreous opacities, bilateral; H26.492 Other secondary cataract, left eye; E78.5 Hyperlipidemia, unspecified; I10 Essential (primary) hypertension; M19.90 Unspecified osteoarthritis, unspecified site; J44.9 Chronic obstructive pulmonary disease, unspecified; Z88.1 Allergy status to other antibiotic agents; Z79.899 Other long term (current) drug therapy; Z79.82 Long term (current) use of aspirin
CPT/HCPCS: 66821

== ENCOUNTER → 2020-07-21 10:49 | Outpatient (CLI) | payer MEDICARE, BC, SELFPAY ==
[2020-07-21 13:49] LABS: Hemoglobin A1C 5.8 % (4.0-6.0)
== END ==
PROVIDERS: Visit Provider Specialist
DX: E11.9 Type 2 diabetes mellitus without complications (principal)
CPT/HCPCS: 36415; 83036

== ENCOUNTER → 2020-07-25 13:40 | Outpatient (CLI) | payer MEDICARE, BC, SELFPAY ==
--- NOTE | 2020-07-25 13:40 | MR_ITS ---
PROCEDURE: MR ANGIO HEAD WO CON CLINICAL INDICATION: vertebrobasilar syndrome DIZZINESS, ALTERED GAIT. PREVIOUS MRI 07-02-20 COMPARISON: No exams were available for comparison TECHNIQUE: Time of flight images obtained with 3D multi slab reformats. FINDINGS: Tortuosity noted once again of the left vertebral artery causing effacement and deformity of the medulla on the left. Left vertebral artery is dominant measuring 4 mm in diameter. The basilar artery has an unremarkable appearance. No evidence of basilar tip aneurysm. Along the suprasellar portion of the left internal carotid artery there is an area of outpouching measuring approximately 3 mm. This could be due to small PCOM aneurysm more prominent infundibulum. This is best demonstrated on series 3, image 95 No other significant anomalies are evident. MRV images are unremarkable but do not cover the most inferior aspect of the superior sagittal sinus. No major intracranial occlusive process is evident. IMPRESSION: 1. Compression of the medulla from a tortuous dominant left vertebral artery which may be seen with vertebral artery compression syndrome/VACS. Correlation with clinical parameters needed. 2. Possible small left posterior communicating artery aneurysm versus prominent infundibulum. CT angiogram of the brain may confirm. Dictated by: Tripp Barba MD 07/26/2020 10:44 Tripp Barba MD in [facility] 07/26/2020 10:44
== END ==
PROVIDERS: PCP Emergency Medicine; Visit Provider Podiatrist
DX: M47.029 Vertebral artery compression syndromes, site unspecified (principal); R42 Dizziness and giddiness
CPT/HCPCS: 70544

== ENCOUNTER → 2020-08-09 09:35 | Outpatient (CLI) | payer MEDICARE, BC, SELFPAY ==
[2020-08-09 11:42] LABS: Blood Urea Nitrogen 24 mg/dl (9-20); Estimated Glomerular Filt Rate 82 ml/min (>60); GFR (African American) 100 ML/MIN (>60)
== END ==
PROVIDERS: Visit Provider Specialist
DX: Z01.818 Encounter for other preprocedural examination (principal)
CPT/HCPCS: 36415; 82565; 84520

== ENCOUNTER → 2020-08-11 09:15 | Outpatient (CLI) | payer MEDICARE, BC, SELFPAY ==
--- NOTE | 2020-08-11 09:15 | CT_ITS ---
Procedure: CT ANGIO HEAD CLINICAL HISTORY: ABNORMAL MRI, DIZZINESS Possible posterior communicating artery aneurysm on the left. COMPARISON: CT CT HEAD/BRAIN WO CON from 05/31/2020 MR MR ANGIO HEAD WO CON from 07/25/2020 TECHNIQUE: IV Contrast: 100ml Isovue 370 Axial images obtained with sagittal and coronal reformats. All CT scans at the facility use one or more dose reduction, viz: automated exposure control, ma/kV adjustment per patient size (including targeted exams where dose is matched to indication, i.e. head), or iterative reconstruction technique. FINDINGS: The vertebral basilar system has an unremarkable appearance. There are mild atheromatous changes of the cavernous portion of the carotids without significant stenosis. There is a small protrusion along the supraclinoid portion of the left internal carotid artery posteriorly corresponding to the abnormality noted on the MRI. This is 1.6 mm in with and is consistent with an infundibulum at the expected origin of the posterior communicating artery. The posterior communicating artery is not readily distinguishable possibly due to the contrast timing and very small caliber. A tiny aneurysm is not excluded. Follow-up is recommended. No other significant anomalies are evident. No enhancing lesions are evident. No AVM or major branch occlusion. Incidental note is made a right maxillary sinus mucous retention cyst and an impacted premolar on the right in the maxillary region. IMPRESSION: Small outpouching along the supraclinoid portion of the left internal carotid artery posteriorly in the expected position of the posterior communicating artery measuring 1.6 mm in diameter consistent with a small infundibulum. Suggest 3 to six-month follow-up to confirm stability Dictated by: Tripp Barba MD 08/12/2020 10:35 Tripp Barba MD in [facility] 08/12/2020 10:35
== END ==
PROVIDERS: PCP Emergency Medicine; Visit Provider Specialist
DX: R42 Dizziness and giddiness (principal); R90.89 Other abnormal findings on diagnostic imaging of central nervous system
CPT/HCPCS: 70496; Q9967

== ENCOUNTER → 2020-09-29 12:37 | Outpatient (CLI) | payer MEDICARE, BC, SELFPAY ==
[2020-09-30 11:24] LABS: PSA, Free 0.82 ng/mL; Prostate Specific Ag 4.2 ng/mL (0.0-4.0)
== END ==
PROVIDERS: Visit Provider Urology
DX: R97.20 Elevated prostate specific antigen [PSA] (principal)
CPT/HCPCS: 36415; 84153; 84154

== ENCOUNTER → 2020-10-31 14:58 | Outpatient (CLI) | payer MEDICARE, BC, SELFPAY ==
[2020-10-31 16:44] LABS: Basophils % 0.5 % (0.1-2.0); Eosinophils # 0.1 K/mm3 (0.0-0.4); Eosinophils % 1.6 % (0.1-12.0); Hematocrit 41.9 % (42.0-52.0); Hemoglobin 14.8 g/dL (14.1-18.0); Lymphocytes # 1.2 K/mm3 (0.7-4.5); Lymphocytes % 17.7 % (10-50); Mean Corpuscular HGB Conc 35.3 g/dL (31.8-35.4); Mean Corpuscular Hemoglobin 34.9 pg (27.0-31.2); Mean Corpuscular Volume 98.8 fl (80-94); Mean Platelet Volume 10.6 fl (7.4-10.4); Monocytes # 0.4 K/mm3 (0.1-1.0); Monocytes % 5.7 % (1.7-9.3); Neutrophils % 74.5 % (37.0-80.0); Platelet Count 170 K/mm3 (142-424); Red Blood Count 4.24 M/mm3 (4.60-6.20); Red Cell Distribution Width 13.5 % (11.5-17.5); White Blood Count 6.7 K/mm3 (4.8-10.8)
[2020-10-31 16:58] LABS: Alanine Aminotransferase 19 U/L (12-78); Albumin Level 4.4 g/dl (3.5-5.0); Albumin/Globulin Ratio 1.6 (1.1-1.8); Alkaline Phosphatase 85 U/L (38-126); Anion Gap 13.3 mEq/L (5-15); Aspartate Amino Transferase 27 U/L (17-59); Bilirubin,Total 0.6 mg/dl (0.2-1.3); Blood Urea Nitrogen 19 mg/dl (9-20); Calcium 9.7 mg/dl (8.4-10.2); Carbon Dioxide 26 mmol/L (22.0-30.0); Chloride 105 mmol/L (98-107); Chol/HDL Ratio 3.3 (1-3.5); Cholesterol 174 mg/dl (140-200); Estimated Glomerular Filt Rate 110 ml/min (>60); GFR (African American) 133 ML/MIN (>60); Globulin 2.8 g/dL (1.3-3.2); Glucose 111 mg/dl (74-100); HDL Cholesterol 53 mg/dl (40-60); Potassium 4.3 mmoL/L (3.5-5.1); Sodium 140 mmol/L (136-145); Total Protein,Serum 7.2 g/dl (6.3-8.2); Triglycerides 107 mg/dl (30-150); VLDL Cholesterol 21 mg/dL (0-40)
[2020-10-31 17:10] LABS: Direct LDL Cholesterol 93.09 mg/dL (100-129)
[2020-10-31 17:15] LABS: Free T4 (Free Thyroxine) 1.03 ng/dl (0.78-2.19)
[2020-10-31 17:28] LABS: Thyroid Stimulating Hormone 2.88 uIU/mL (0.465-4.68)
== END ==
PROVIDERS: Visit Provider Emergency Medicine
DX: E66.9 Obesity, unspecified (principal); E78.5 Hyperlipidemia, unspecified
CPT/HCPCS: 80053; 80061; 84439; 84443; 85025

== ENCOUNTER → 2021-02-04 09:03 | Outpatient (CLI) | payer MEDICARE, BC, SELFPAY ==
--- NOTE | 2021-02-04 09:14 | CT_ITS ---
PROCEDURE INFORMATION: Exam: CT Angiography Head With Contrast, Arteriography Exam date and time: 02/04/2021 9:14 AM Age: 75 years old Clinical indication: Abnormal findings; Abnormal CT of the head and abnormal mri of head; Additional info: Abnormal finding on CT angiogram TECHNIQUE: Imaging protocol: Computed tomography angiography of the head with contrast. Exam focused on the arteries. 3D rendering (Not supervised by radiologist): MIP and/or 3D reconstructed images were created by the technologist. Radiation optimization: All CT scans at this facility use at least one of these dose optimization techniques: automated exposure control; mA and/or kV adjustment per patient size (includes targeted exams where dose is matched to clinical indication); or iterative reconstruction. Contrast material: ISO 370; Contrast volume: 100 ml; Contrast route: INTRAVENOUS (IV); COMPARISON: CT ANGIO HEAD 08/11/2020 9:58 AM FINDINGS: ANTERIOR CIRCULATION: Right internal carotid artery: Unremarkable. Intracranial segment is patent with no significant stenosis. No aneurysm. Right middle cerebral artery: Unremarkable. No occlusion or significant stenosis. No aneurysm. Right anterior cerebral artery: Unremarkable. No occlusion or significant stenosis. No aneurysm. Left internal carotid artery: A stable tiny 2 mm outpouching involving the left supraclinoid internal carotid artery likely reflects an infundibulum. This appears unchanged. Left middle cerebral artery: Unremarkable. No occlusion or significant stenosis. No aneurysm. Left anterior cerebral artery: Unremarkable. No occlusion or significant stenosis. No aneurysm. POSTERIOR CIRCULATION: Right vertebral artery: Unremarkable. No occlusion or significant stenosis. No aneurysm. Left vertebral artery: Unremarkable. No occlusion or significant stenosis. No aneurysm. Basilar artery: Unremarkable. No occlusion or significant stenosis. No aneurysm. Right posterior cerebral artery: Unremarkable. No occlusion or significant stenosis. No aneurysm. Left posterior cerebral artery: Unremarkable. No occlusion or significant stenosis. No aneurysm. Brain: No definite mass, mass effect, or midline shift. Cerebral ventricles: No ventriculomegaly. Bones/joints: Unremarkable. No acute fracture. Soft tissues: Unremarkable. IMPRESSION: Stable tiny outpouching involving the left supraclinoid internal carotid artery, likely infundibulum.
[2021-02-04 09:24] LABS: Blood Urea Nitrogen 21 mg/dl (9-20); Estimated Glomerular Filt Rate 110 ml/min (>60); GFR (African American) 133 ML/MIN (>60)
--- NOTE | 2021-02-04 10:04 | CT_ITS ---
PROCEDURE: CT HEAD/BRAIN WO CON CLINICAL INDICATION: ABNORMAL FINDINGS Follow-up possible aneurysm COMPARISON: CT CT HEAD/BRAIN WO CON from 05/31/[address] ANGIO HEAD from 08/11/2020 TECHNIQUE: Axial images obtained. All CT scans at the facility use one or more dose reduction, viz: automated exposure control, ma/kV adjustment per patient size (including targeted exams where dose is matched to indication, i.e. head), or iterative reconstruction technique. FINDINGS: No midline shift, mass effect, intracranial hemorrhage, hydrocephalus, or extra-axial fluid collection is evident. There is generalized atrophy with hypoattenuation of the periventricular white matter consistent with microangiopathic changes.. The calvarium has an unremarkable appearance. There is a small amount fluid in the mastoid sinus on right with air-fluid levels. Small air-fluid levels present in the sphenoid sinus on the right IMPRESSION: No acute intracranial finding Right mastoid and sphenoid sinus disease Dictated by: Tripp Barba MD 02/04/2021 18:22 Tripp Barba MD in [facility] 02/04/2021 18:22
== END ==
PROVIDERS: PCP Emergency Medicine; Visit Provider Specialist
DX: R42 Dizziness and giddiness (principal)
CPT/HCPCS: 36415; 70450; 70496; 82565; 84520; Q9967

== ENCOUNTER → 2021-04-10 07:42 | Outpatient (CLI) | payer MEDICARE, BC, SELFPAY ==
[2021-04-10 08:42] LABS: Basophils % 0.5 % (0.1-2.0); Eosinophils # 0.1 K/mm3 (0.0-0.4); Eosinophils % 1.5 % (0.1-12.0); Hematocrit 43.8 % (42.0-52.0); Hemoglobin 14.7 g/dL (14.1-18.0); Lymphocytes # 1.4 K/mm3 (0.7-4.5); Mean Corpuscular HGB Conc 33.6 g/dL (31.8-35.4); Mean Corpuscular Hemoglobin 32.6 pg (27.0-31.2); Mean Corpuscular Volume 97.2 fl (80-94); Mean Platelet Volume 8.6 fl (7.4-10.4); Monocytes # 0.4 K/mm3 (0.1-1.0); Monocytes % 5.2 % (1.7-9.3); Neutrophils # 5.5 K/mm3 (1.8-7.8); Neutrophils % 73.9 % (37.0-80.0); Platelet Count 168 K/mm3 (142-424); Red Blood Count 4.51 M/mm3 (4.60-6.20); Red Cell Distribution Width 13.7 % (11.5-17.5); White Blood Count 7.4 K/mm3 (4.8-10.8)
[2021-04-10 09:02] LABS: Chloride 106 mmol/L (98-107); Potassium 4.7 mmoL/L (3.5-5.1); Sodium 142 mmol/L (136-145)
[2021-04-10 09:05] LABS: Alanine Aminotransferase 19 U/L (12-78); Albumin Level 4.2 g/dl (3.5-5.0); Albumin/Globulin Ratio 1.6 (1.1-1.8); Alkaline Phosphatase 87 U/L (38-126); Anion Gap 11.7 mEq/L (5-15); Aspartate Amino Transferase 26 U/L (17-59); Bilirubin,Total 0.7 mg/dl (0.2-1.3); Blood Urea Nitrogen 21 mg/dl (9-20); Carbon Dioxide 29 mmol/L (22.0-30.0); Chol/HDL Ratio 3.2 (1-3.5); Cholesterol 183 mg/dl (140-200); Estimated Glomerular Filt Rate 110 ml/min (>60); GFR (African American) 133 ML/MIN (>60); Globulin 2.6 g/dL (1.3-3.2); Glucose 105 mg/dl (74-100); HDL Cholesterol 57 mg/dl (40-60); Total Protein,Serum 6.8 g/dl (6.3-8.2); Triglycerides 88 mg/dl (30-150); VLDL Cholesterol 18 mg/dL (0-40)
[2021-04-10 09:16] LABS: Direct LDL Cholesterol 97.87 mg/dL (100-129)
== END ==
PROVIDERS: Visit Provider Nurse Practitioner Family
DX: I10 Essential (primary) hypertension (principal); E78.5 Hyperlipidemia, unspecified; J44.9 Chronic obstructive pulmonary disease, unspecified
CPT/HCPCS: 36415; 80053; 80061; 85025

== ENCOUNTER 2021-04-16 16:49 | Emergency (ER) | payer MEDICARE, BC, SELFPAY ==
[2021-04-16 16:49] VITALS: BP 167/81; PULSE 65; RESP 16; TEMP 36.8; O2SAT 96; BMI 31.0
[2021-04-16 17:18] VITALS: BP 167/81; PULSE 65; RESP 16; TEMP 36.8; O2SAT 96; BMI 31.1
--- NOTE | 2021-04-16 17:32 | HMH.EDUTC ---
[facility] [place] Impression: Toxic effect of insect venom Qualifiers: Encounter type: initial encounter Injury intent: accidental or unintentional Qualified Code(s): T63.481A - Toxic effect of venom of other arthropod, accidental (unintentional), initial encounter Poisoning, bee sting Qualifiers: Encounter type: initial encounter Injury intent: accidental or unintentional Qualified Code(s): T63.441A - Toxic effect of venom of bees, accidental (unintentional), initial encounter Disposition: Home, Self-Care Condition on Discharge: Good Instructions: Insect Bites and Stings, Methylprednisolone Additional Instructions: Avoid contact with the yellowjackets and other bees. Don't start the oral steroids until tomorrow. Don't put the topical steroids (triamcinolone) on your face or your groin. The vistaril will make you drowsy. It is kind of like a stronger version of benedryl, so don't take benedryl and vistaril together. They would make you way too drowsy. Any antihistamine can make a person dizzy or unsteady on your feet, so be very careful when getting up and walking after taking it. Please don't fall. Follow up with your regular doctor. GO TO THE ER FOR ANY WORSENING SYMPTOMS OR CONCERNS Prescriptions: methylPREDNISolone [Medrol] 4 mg PO DIRECTED 6 Days #21 tab.[email or web address] Transmission Status: Received by [id number] Triamcinolone Acetonide 1 applicatio TP TIDP PRN 7 Days #1 tube PRN Reason: Itching Transmission Status: Received by [facility] hydrOXYzine pamoate [Vistaril 25mg capsule] 25 mg PO Q6H PRN #30 cap PRN Reason: Itching Transmission Status: Received by [id number] Referrals: Jacqeuline Beck APRN [Primary Care Provider] - Medical Decision Making - Medical Records Medical records reviewed: No: I reviewed the patient's medical records. - Willie Inquiry Pt receiving controlled substance: No Vital Signs: 04/16/21 16:49 04/16/21 17:18 04/16/21 17:53 Temperature 98.3 F 98.3 F 98.3 F Temperature Source Oral Oral Pulse Rate 65 Pulse Rate [Left Radial] 65 65 Respiratory Rate 16 16 16 Blood Pressure 167/81 H Blood Pressure [Left Arm] 167/81 H 167/81 H Blood Pressure Mean [Left Arm] 109 109 Blood Pressure Source [Left Arm] Automatic Cuff Blood Pressure Position [Left Arm] Sitting 02 Sat by Pulse Oximetry 96 96 Oxygen Delivery Method Room Air Orders (Tests/Meds): ED MEDICATIONS Discontinued Medications Generic Name Dose Route Start Last Admin Trade Name Brian PRN Reason Stop Dose Admin Methylprednisolone Sodium Succinate 125 mg 04/16/21 17:32 04/16/21 17:45 Methylprednisolone Sod Succ 125mg Vial IM 04/16/21 17:33 125 mg ONCE ONE [place] [facility] [place] - General Stated complaint: sTUNG BY YELLOW JACKETS Time Seen by Provider: 04/16/21 17:00 Description of Symptoms (Recalled from Triage Doc. by RN): Pt states that he got stung by a nest of yellow jackets at approx noon yesterday and has been itching since, despite self administering Benadryl HEENT Symptoms (Recalled from RN notes): No Resp Symptoms (Recalled from RN notes): No Skin Symptoms (Recalled from RN notes): Yes MS Symptoms (Recalled from RN notes): No Functional Status (Recalled from RN notes): na - History of Present Illness Provider Complaint: He states that he was stung at least 25 times yesterday when he accidentily stepped on their nest that was in the ground. He denies any shortness of breath or chest pain. He is here because the stings are itching him pretty bad. He couldn't sleep last night for the itching despite taking benedryl 50 mg before bed. - Related Data Home Medications Medication Instructions Recorded Confirmed ipratropium 20 mcg-albuterol 100 1 puff INHALATION Q6H 03/02/18 03/31/21 mcg/actuation mist for inhalation aspirin 81 mg tablet,delayed 81 mg PO DAILY 04/03/19 03/31/21 release ascorbate calcium (vitamin C) 500
[2021-04-16 17:53] VITALS: BP 167/81; PULSE 65; RESP 16; TEMP 36.8; O2SAT 96
== END 2021-04-16 17:54 | disposition home or self-care (01) ==
PROVIDERS: Emergency Provider Nurse Practitioner Family; PCP Nurse Practitioner Family
DX: T63.441A Toxic effect of venom of bees, accidental (unintentional), initial encounter (principal); W57.XXXA Bitten or stung by nonvenomous insect and other nonvenomous arthropods, initial encounter; I10 Essential (primary) hypertension; E78.5 Hyperlipidemia, unspecified; J44.9 Chronic obstructive pulmonary disease, unspecified; Z87.891 Personal history of nicotine dependence
CPT/HCPCS: G0463; 96372; 99202

== ENCOUNTER → 2021-07-10 08:06 | Outpatient (CLI) | payer MEDICARE, BC, SELFPAY ==
--- NOTE | 2021-07-10 08:13 | XR_ITS ---
PROCEDURE: XR CHEST 2V CLINICAL HISTORY: COPD COMPARISON: CR CXR2V XR chest 2V from 12/11/[address] chest w con from 12/22/2018 CR XR CHEST 2V from 04/10/2020 CR XR CHEST 2V from 05/31/2020 FINDINGS: Borderline emphysematous changes are seen with flattening of the hemidiaphragms. There is minimal postinflammatory scarring at the left costophrenic angle. There are mild multilevel degenerate changes of the thoracic spine. Cardiac size is normal and vascularity is normal and there is no pleural fluid. IMPRESSION: Stable chest with borderline emphysematous changes and minimal scarring at the left costophrenic angle, no acute chest pathology noted Dictated by: Dr. Julio Wolfe MD 07/10/2021 08:45 Dr. Julio Wolfe MD in [place] 07/10/2021 08:45
[2021-07-10 09:13] LABS: Basophils # 0.1 K/mm3 (0-0.2); Basophils % 0.9 % (0.1-2.0); Eosinophils # 0.1 K/mm3 (0.0-0.4); Eosinophils % 1.5 % (0.1-12.0); Hematocrit 45.6 % (42.0-52.0); Hemoglobin 15.5 g/dL (14.1-18.0); Lymphocytes # 1.1 K/mm3 (0.7-4.5); Lymphocytes % 15.6 % (10-50); Mean Corpuscular Hemoglobin 33.6 pg (27.0-31.2); Mean Platelet Volume 9.9 fl (7.4-10.4); Monocytes # 0.4 K/mm3 (0.1-1.0); Monocytes % 4.9 % (1.7-9.3); Neutrophils # 5.5 K/mm3 (1.8-7.8); Neutrophils % 77.1 % (37.0-80.0); Platelet Count 184 K/mm3 (142-424); Red Blood Count 4.61 M/mm3 (4.60-6.20); Red Cell Distribution Width 13.1 % (11.5-17.5); White Blood Count 7.1 K/mm3 (4.8-10.8)
[2021-07-10 09:14] LABS: Hemoglobin A1C 5.9 % (4.0-6.0)
[2021-07-10 10:33] LABS: Alanine Aminotransferase 19 U/L (12-78); Albumin Level 4.1 g/dl (3.5-5.0); Albumin/Globulin Ratio 1.7 (1.1-1.8); Alkaline Phosphatase 82 U/L (38-126); Anion Gap 8.2 mEq/L (5-15); Aspartate Amino Transferase 25 U/L (17-59); Bilirubin,Total 0.6 mg/dl (0.2-1.3); Blood Urea Nitrogen 15 mg/dl (9-20); Calcium 9.3 mg/dl (8.4-10.2); Carbon Dioxide 30 mmol/L (22.0-30.0); Chloride 102 mmol/L (98-107); Estimated Glomerular Filt Rate 131 ml/min (>60); GFR (African American) 159 ML/MIN (>60); Globulin 2.4 g/dL (1.3-3.2); Glucose 120 mg/dl (74-100); Potassium 4.2 mmoL/L (3.5-5.1); Sodium 136 mmol/L (136-145); Total Protein,Serum 6.5 g/dl (6.3-8.2)
[2021-07-11 09:13] LABS: Testosterone,Total 289 ng/dL (264-916)
== END ==
PROVIDERS: PCP Nurse Practitioner Family; Visit Provider Nurse Practitioner Family
DX: J44.9 Chronic obstructive pulmonary disease, unspecified (principal); R73.9 Hyperglycemia, unspecified; N52.9 Male erectile dysfunction, unspecified
CPT/HCPCS: 36415; 71046; 80053; 83036; 84403; 85025

== ENCOUNTER → 2021-07-20 09:33 | Outpatient (CLI) | payer MEDICARE, BC, SELFPAY ==
--- NOTE | 2021-07-20 09:37 | FL_ITS ---
PROCEDURE: FL UPPER GI W AIR CLINICAL INDICATION: DYSPHAGIA,UNSPECIFIED TYPE COMPARISON: No exams were available for comparison TECHNIQUE: FLUOROSCOPY TIME : Fluoroscopy time: 1.18 minutes FINDINGS: There are mildly prominent anterior osteophytes at C5-C6 with some posterior indentation upon the esophagus at this level. No hiatal hernia. No ulcer or mass. There is a mildly prominent diverticulum projecting off the superior aspect of the transverse duodenum IMPRESSION: No ulcer or mass. Mildly prominent osteophytes at C5-C6 causing some mild posterior indentation upon the esophagus of questionable clinical significance Dictated by: Tripp Barba MD 07/20/2021 11:15 Tripp Barba MD in [place] 07/20/2021 11:15
== END ==
PROVIDERS: PCP Nurse Practitioner Family; Visit Provider Nurse Practitioner Family
DX: R13.10 Dysphagia, unspecified (principal)
CPT/HCPCS: 74246

== ENCOUNTER → 2021-08-11 11:37 | Outpatient (CLI) | payer MEDICARE, BC, SELFPAY ==
--- NOTE | 2021-08-11 | CA_ITS ---
APPROVED REPORT Exam: Pharmacologic Technologist: Angela Tran Ht: 5 ft 9 in Wt: 208 lbs BSA: 2.10 m2 HR: 71 bpm BP: 156/78 mmHg Indications: Chest pain, Hypertension Medical History Medications: Lisinopril,,,,, Asa,,,,, Pravastatin,,,,, Gabapentin,,,,, Vitamin C,,,,, Combivent,,,,, MeLOXICAM,,,,, Meclizine,,,,, Metamucil,,,,, Vitamin B Complex,,,,, Stress Test Details Test: LEXISCAN HR Resting HR: 76 bpm Max Heart Rate (APMHR): 145.368960 bpm Max HR Achieved: 103 bpm Target HR (85% APMHR): 123.097097 bpm % of APMHR: 71.03 Recovery HR: 85 bpm BP Resting BP: 156.0/78.0 mmHg Max BP: 159.0/72.0 mmHg Recovery BP: 152.0/80.0 mmHg ECG Resting ECG: Normal sinus rhythm, PVC, inferior ST abnormality. Clinical Exercise duration: 04:01 min Highest Stage Achieved: Exercise capacity: 1.0 METs Stress ECG Conclusion Symptoms: Shortness of air, mild nausea, headache. No chest pain. Arrhythmias/Ectopy: Occasional PVC ST-T Changes: No significant change compared to baseline. Conclusion: Non-diagnostic Lexiscan stress. Myoview images reported separately. Test Summary REST 02:00 . . 76 . 156/ 78 . . Stage 1 . . . . . . . Myoview Injected Stage 1 01:00 . . 96 . . . . Stage 2 01:00 . . 101 . 142/ 66 . . Stage 3 01:00 . . 99 . 146/ 76 . . Stage 4 01:00 . . 85 . . . . Stage 4 01:01 . . 85 . . . Stop exercise at 04:01 RECOVERY 01:00 . . 82 . 152/ 77 . . RECOVERY 02:00 . . 86 . 159/ 72 . . RECOVERY 03:00 . . 82 . 159/ 72 . . RECOVERY 04:00 . . 84 . 152/ 80 . . RECOVERY 04:15 . . 85 . 152/ 80 . . Electronically signed by : Noe Morris MD 08/11/2021 19:49:51
--- NOTE | 2021-08-11 11:39 | NM_ITS ---
APPROVED REPORT Exam: Nuclear Stress Test Indication: Chest pain, SOB, HTN, Former tobacco use, Family history Patient Location: Outpatient Stress Tech: Angela Tran MT Tech:Saray Garcia, ARRT, RT (R)(N) Ht: 5 ft 9 in Wt: 218 lbs HR: 71 bpm BP: 156/78 mmHg BSA: 2.14 m2 BMI: 32.1 History: Chest pain, SOB, HTN, Former tobacco use, Family history Procedure: Patient received a 0.4 mg of intravenous Lexiscan, resting heart rate 71 bpm, resting blood pressure 156/78 mmHg, with Lexiscan maximum heart rate achived was 102 bpm which is Less than 85 % of the maximum predicted heart rate and blood pressure was 142/66 mmHg. With Lexiscan, patient denied any complaint of chest pain. Electrocardiogram Resting electrocardiogram shows sinus rhythm, with Lexiscan there is less than 1.[address] segment depression noted from the baseline EKG. The EKG portion of the Lexiscan is nondiagnostic. Cardiac Stress and Resting SPECT Images: Cardiac Stress and Resting SPECT images were obtained using technetium 99m Myoview 30.3 mCi stress and 10.27 mCi at rest. Gated SPECT for analysis of segmental wall motion and calculation of the ejection fraction also done. Prone images were also obtained. Cardiac stress and rest SPECT images show uniform myocardial activity without segmental perfusion abnormality, computer derived ejection fraction 61% with no regional wall motion abnormality, right ventricle is normal size and contractility. Conclusion: 1. The EKG portion of the Lexiscan is nondiagnostic. 2. No scintigraphic evidence of reversible ischemia seen, computer derived ejection fraction is 61% with no regional wall motion abnormality, right ventricle is normal size and contractility. 3. Normal Lexiscan Myoview study. Electronically signed by : Noe Morris MD 08/11/2021 19:55:45
--- NOTE | 2021-08-11 13:40 | HMH.ITSHM ---
Current Home Medications as stated by this patient Kenan Tran or computer help desk representative. []PRAVASTATIN LISINOPRIL GABAPENTIN MELOXICAM MULTIVITAMIN VITAMIN B COMPLEX VITAMIN C ASA OMEPRAZOLE CHLORTHALIDONE
== END ==
PROVIDERS: PCP Nurse Practitioner Family; Visit Provider Nurse Practitioner Family
DX: R07.9 Chest pain, unspecified (principal); I10 Essential (primary) hypertension
CPT/HCPCS: 78452; 93017; A9502; J2785

== ENCOUNTER → 2021-08-13 09:30 | Outpatient (CLI) | payer MEDICARE, BC, SELFPAY ==
[2021-08-13 10:28] LABS: Anion Gap 10.6 mEq/L (5-15); Blood Urea Nitrogen 28 mg/dl (9-20); Calcium 9.8 mg/dl (8.4-10.2); Carbon Dioxide 33 mmol/L (22.0-30.0); Chloride 97 mmol/L (98-107); Estimated Glomerular Filt Rate 82 ml/min (>60); GFR (African American) 100 ML/MIN (>60); Glucose 93 mg/dl (74-100); Magnesium 1.8 mg/dl (1.6-2.3); Potassium 4.6 mmoL/L (3.5-5.1); Sodium 136 mmol/L (136-145)
== END ==
PROVIDERS: Visit Provider Nurse Practitioner Family
DX: I10 Essential (primary) hypertension (principal); R25.2 Cramp and spasm
CPT/HCPCS: 36415; 80048; 83735

== ENCOUNTER → 2021-09-29 08:37 | Outpatient (CLI) | payer MEDICARE, BC, SELFPAY ==
[2021-09-30 12:21] LABS: PSA, Free 1.11 ng/mL
== END ==
PROVIDERS: PCP Nurse Practitioner Family; Visit Provider Urology
DX: R97.20 Elevated prostate specific antigen [PSA] (principal)
CPT/HCPCS: 36415; 84153; 84154

== ENCOUNTER → 2022-03-11 13:14 | Outpatient (CLI) | payer MEDICARE, BC, SELFPAY ==
[2022-03-11 14:03] LABS: Basophils % 0.4 % (0.1-2.0); Eosinophils # 0.1 K/mm3 (0.0-0.4); Eosinophils % 1.8 % (0.1-12.0); Hematocrit 40.1 % (42.0-52.0); Hemoglobin 13.1 g/dL (14.1-18.0); Lymphocytes # 1.4 K/mm3 (0.7-4.5); Lymphocytes % 16.9 % (10-50); Mean Corpuscular HGB Conc 32.7 g/dL (31.8-35.4); Mean Corpuscular Hemoglobin 33.1 pg (27.0-31.2); Mean Corpuscular Volume 101.2 fl (80-94); Mean Platelet Volume 10.4 fl (7.4-10.4); Monocytes # 0.5 K/mm3 (0.1-1.0); Monocytes % 6.1 % (1.7-9.3); Neutrophils % 74.8 % (37.0-80.0); Platelet Count 184 K/mm3 (142-424); Red Blood Count 3.96 M/mm3 (4.60-6.20)
[2022-03-11 14:18] LABS: Anion Gap 11.1 mEq/L (5-15); Blood Urea Nitrogen 31 mg/dl (9-20); Carbon Dioxide 30 mmol/L (22.0-30.0); Chloride 101 mmol/L (98-107); Estimated Glomerular Filt Rate 73 ml/min (>60); GFR (African American) 88 ML/MIN (>60); Glucose 111 mg/dl (74-100); Potassium 4.1 mmoL/L (3.5-5.1); Sodium 138 mmol/L (136-145); Uric Acid 7.4 mg/dl (3.5-8.5)
[2022-03-11 14:31] LABS: Erythrocyte Sedimentation Rate 64 mm/hr (0-20)
== END ==
PROVIDERS: PCP Nurse Practitioner Family; Visit Provider Nurse Practitioner Family
DX: M79.672 Pain in left foot (principal)
CPT/HCPCS: 36415; 80048; 84550; 85025; 85651

== ENCOUNTER → 2022-03-23 10:09 | Outpatient (POV) | payer MEDICARE, BC, SELFPAY | PROVIDERS: Visit Provider Dermatology | DX: Z00.00 Encounter for general adult medical examination without abnormal findings (principal) ==

== ENCOUNTER → 2022-04-05 13:19 | Outpatient (CLI) | payer MEDICARE, BC, SELFPAY ==
--- NOTE | 2022-04-05 13:25 | MM_ITS ---
PROCEDURE INFORMATION: Exam: US Right Breast, Complete US Left Breast, Complete MG Right Diagnostic Breast Tomosynthesis Exam date and time: 04/05/2022 1:50 PM Age: 76 years old Clinical indication: x 3 months; Right breast pain TECHNIQUE: Imaging protocol: Complete ultrasound of all four quadrants of the Right breast and the retroareolar regions, including ultrasound of the axilla when performed. Complete ultrasound of all four quadrants of the Left breast and the retroareolar regions, including ultrasound of the axilla when performed. Right Diagnostic tomosynthesis and 2D mammography including computer-aided detection (CAD) when performed. Unilateral or bilateral exam. COMPARISON: MG MM DIG MAMM DX UNILAT RT CAD 04/05/2022 1:34 PM FINDINGS: MAMMOGRAPHY: The breast tissue is composed of scattered areas of fibroglandular density, consistent with mild retroareolar gynecomastia. There is no stellate mass, architectural distortion or suspicious microcalcifications to suggest malignancy. No skin thickening . ULTRASOUND: Sonographic images of both breasts including the retroareolar regions, all 4 quadrants and the axilla do not demonstrate any solid or cystic masses. Mild retroareolar gynecomastia is noted on the right. No significant breast parenchyma is noted on the left. No architectural distortion or acoustical shadowing. No skin thickening . IMPRESSION: Mild unilateral gynecomastia on the right. Correlation with current medication use is recommended to assess potential etiology for the gynecomastia ASSESSMENT: BI-RADS Category 2: Benign
== END ==
PROVIDERS: PCP Nurse Practitioner Family; Visit Provider Nurse Practitioner Family
DX: N63.10 Unspecified lump in the right breast, unspecified quadrant (principal); N64.4 Mastodynia; N62 Hypertrophy of breast
CPT/HCPCS: 76641; 77061; 77065; G0279

== ENCOUNTER 2022-10-13 10:03 | Emergency (ER) | payer MEDICARE, BC, SELFPAY ==
[2022-10-13 10:32] VITALS: BMI 33.3
[2022-10-13 11:00] VITALS: BP 147/62; PULSE 75; RESP 20; TEMP 37.1; O2SAT 95; BMI 33.3
--- NOTE | 2022-10-13 11:07 | EXP.UTC ---
Discharge Plan Disposition Patient Disposition: Home, Self-Care Condition: Good Prescriptions Prescriptions: New doxycycline monohydrate [doxycycline monohydrate] 100 mg tablet 100 mg PO Q12 10 Days Qty: 20 0RF mupirocin 2 % ointment 1 applic topical TID 7 Days Qty: 15 0RF No Action ipratropium-albuterol [Combivent Respimat] 20-100 mcg/actuation mist 1 puff INHALATION Q6H ascorbate calcium (vitamin C) 500 mg tablet 500 mg PO DAILY gabapentin 300 mg capsule 300 mg PO DAILY Qty: 90 0RF hydrocodone-acetaminophen 5-325 mg tablet 1 tab PO TID PRN (Reason: pain) 30 Days Qty: 90 0RF aspirin 81 mg tablet,delayed release (DR/EC) 81 mg PO DAILY vitamin B complex [B Complex-Vitamin B12] Tablet 1 tab PO DAILY Metamucil 3.4 gram/5.4 gram powder 1 tbsp PO DAILY Rx Instructions: mix into at least 8 oz of water or juice before administering omeprazole 20 mg capsule,delayed release(DR/EC) 20 mg PO DAILY terazosin 1 mg capsule 1 mg PO BID chlorthalidone 25 mg tablet 25 mg PO DAILY meclizine 25 mg tablet 25 mg PO TID Qty: 90 0RF meloxicam 7.5 mg tablet See Rx Instructions .ROUTE .COMPLEX Qty: 90 3RF Dose Instruction: TAKE 1 TABLET DAILY FOR ARTHRITIS Rx Instructions: TAKE 1 TABLET DAILY FOR ARTHRITIS pravastatin 40 mg tablet See Rx Instructions .ROUTE .COMPLEX Qty: 90 3RF Dose Instruction: TAKE 1 TABLET DAILY FOR CHOLESTEROL Rx Instructions: TAKE 1 TABLET DAILY FOR CHOLESTEROL lisinopril 10 mg tablet See Rx Instructions .ROUTE .COMPLEX Qty: 180 3RF Dose Instruction: TAKE 1 TABLET TWICE A DAY FOR BLOOD PRESSURE Rx Instructions: TAKE 1 TABLET TWICE A DAY FOR BLOOD PRESSURE triamcinolone acetonide 15 GM cream 1 applicatio TP TIDP PRN (Reason: Itching) 7 Days Qty: 1 0RF hydroxyzine pamoate 25 MG capsule 25 mg PO Q6H PRN (Reason: Itching) Qty: 30 0RF Referrals Follow up/Referrals: Jacqueline Beck APRN [Primary Care Provider] - See instructions Activity Restrictions/Add. Instructions Additional Instructions/Restrictions: Keep the affected area clean and dry. Follow up with your regular doctor. Take the antibiotics as directed and apply the topical antibiotics as directed. GO TO THE ER FOR ANY WORSENING SYMPTOMS Clinical Impressions Clinical Impression: Embedded tick of thoracic region Instructions Patient Instructions: Doxycycline, Mupirocin, Protect Yourself from Tickborne Illnesses Discharge ED Provider: Vish Cote [facility] [place] H[place] General Stated complaint: possible tick embedded in stomach Mode of Arrival: Ambulatory Time Seen by Provider: 10/13/22 11:07 History of Present Illness Provider Complaint: He is here with a tick embedded in the right side of his chest. He first noticed the tick this morning. He denies any other complaints. Related Data Home Medications Medication Instructions Recorded Confirmed ipratropium 20 mcg-albuterol 100 1 puff inhalation Q6H Asthma 03/02/18 10/05/21 mcg/actuation mist for inhalation (Combivent Respimat) aspirin 81 mg tablet,delayed 81 mg PO DAILY Blood thinner 04/03/19 10/05/21 release ascorbate calcium (vitamin C) 500 500 mg PO DAILY Supplement 11/06/19 10/05/21 mg tablet psyllium husk 3.4 gram/5.4 gram 1 tbsp PO DAILY 07/21/20 10/05/21 oral powder (Metamucil) vitamin B complex (B 1 tab PO DAILY 07/21/20 10/05/21 Complex-Vitamin B12 tablet) chlorthalidone 25 mg tablet 25 mg PO DAILY 10/05/21 10/05/21 omeprazole 20 mg capsule,delayed 20 mg PO DAILY 10/05/21 10/05/21 release terazosin 1 mg capsule 1 mg PO BID 10/05/21 10/05/21 Previous Rx's Medication Instructions Recorded meclizine 25 mg tablet 25 mg PO TID #90 tabs 09/13/20 meloxicam 7.5 mg tablet See Rx Instructions .Route 10/03/20 .COMPLEX #90 tabs pravastatin 40 mg tablet See Rx Instructions .Route 12/15/20 .COMPLEX #90 tabs
[2022-10-13 12:02] VITALS: BP 147/62; PULSE 75; RESP 20; TEMP 37.1; O2SAT 95
== END 2022-10-13 12:00 | disposition home or self-care (01) ==
PROVIDERS: Emergency Provider Nurse Practitioner Family; PCP Nurse Practitioner Family
DX: S20.9 Superficial injury of unspecified parts of thorax (principal)
CPT/HCPCS: 10120; 99212; 99213; G0463

== ENCOUNTER → 2023-01-06 12:58 | Outpatient (CLI) | payer MEDICARE, BC, SELFPAY ==
--- NOTE | 2023-01-06 13:02 | XR_ITS ---
FINAL REPORT CLINICAL HISTORY: COUGH,RALES,WHEEZING FINDINGS: There is no evidence of effusion or other pleural disease. The mediastinum has a normal appearance. The cardiac silhouette is unremarkable. IMPRESSION: Unremarkable chest exam. Reviewed, Interpreted and Dictated by Lyla Rojas MD Transcribed by Zara Soto Authenticated and [facility]
== END ==
PROVIDERS: PCP Nurse Practitioner Family; Visit Provider Nurse Practitioner Family
DX: R05.8 Other specified cough (principal); R09.89 Other specified symptoms and signs involving the circulatory and respiratory systems; R06.2 Wheezing
CPT/HCPCS: 71046

== ENCOUNTER → 2023-04-05 10:33 | Outpatient (POV) | payer MEDICARE, BC, SELFPAY | PROVIDERS: Visit Provider Dermatology | DX: Z00.00 Encounter for general adult medical examination without abnormal findings (principal) ==

== ENCOUNTER → 2023-07-12 09:53 | Outpatient (POV) | payer MEDICARE, BC, SELFPAY | PROVIDERS: PCP Nurse Practitioner Family; Visit Provider Dermatology | DX: Z00.00 Encounter for general adult medical examination without abnormal findings (principal) ==

== ENCOUNTER 2023-09-08 09:58 | Outpatient (CLI) | payer MEDICARE, BC, SELFPAY ==
--- NOTE | 2023-09-08 09:59 | CA_ITS ---
APPROVED REPORT EXAM: Comprehensive 2D, Doppler, and color-flow Echocardiogram Disability Coordinator: Amber Martinez CRT Ht: 5 ft 9 in Wt: 233lbs BSA: 2.20 BP: 140/70 mmHg Indications: COPD, Obesity, Hyperlipidemia, Hypertension/HDD 2D Dimensions LA Volume 40.40 mL LA Volume Index 17.90 mL/m2 (M/F) 16-34 M-Mode Dimensions RVDd 1.85 cm (0.9-2.6) LA Diam 3.85 cm (1.9-4.0) LVDd 6.06 cm (3.5-5.7) LVDs 4.25 cm (3.5-5.7) IVSd 1.93 cm (0.6-1.1) PWd 0.76 cm (0.6-1.1) EF (Teich) 56.10% FS 29.90% EDV (Teich) 184.10 mL TAPSE 2.21 (<1.7) ESV (Teich) 80.80 mL LV Diastology E Decel Time 337 (160-240 msec) E/A Ratio 0.74 MED A' 10.60 cm/s LAT A' 11.80 cm/s Aortic Valve AO Peak GR. 8.10 mmHg Mitral Valve MV A Velocity 102.0 (40-130 cm/s) E/A Ratio 0.74 Pulmonary Valve PV Peak Velocity 102.0 (50-150 cm/s) Tricuspid Valve TR P. Velocity 206.00 cm/s RAP Estimate 10.00 mmHg RVSP 27.00 mmHg Left Ventricle The left ventricle is normal size. The left ventricular systolic function is normal. The left ventricular ejection fraction is within the normal range. There is increased LV wall thickness. There is normal LV segmental wall motion. The left ventricular diastolic function is normal. LVEF is 60%. Right Ventricle The right ventricle is mildly dilated. The right ventricular systolic function is normal. Atria The left atrium size is normal. The right atrium is mildly dilated. Aortic Valve The aortic valve is mildly thickened. There is no aortic valvular stenosis. No aortic regurgitation is present. Mitral Valve The mitral valve leaflets are mildly thickened. No evidence of mitral valve stenosis. There is no mitral valve regurgitation noted. Tricuspid Valve The tricuspid valve leaflets are thin and pliable. Trace tricuspid regurgitation. There is insufficient TR jet to estimate RVSP. Pulmonic Valve The pulmonary valve is normal in structure. Trace pulmonic regurgitation. Great Vessels The aortic root is normal in size. The ascending aorta is not well-visualized. The IVC is dilated, but collapses > 50% with respirophasic variation. The RA pressure is estimated at 8 mmHg. Pericardium There is no pericardial effusion. Other Information Study Quality: Technically Difficult Conclusion Technically difficult study due to poor acoustic windows. Normal biventricular systolic function. Mild RV dilation. Mild RA dilation. No significant valvular stenosis or regurgitation. Electronically signed by : Karina Monteiro MD 09/12/2023 00:20:21
== END 2023-09-08 23:59 ==
LOC: RT 09:59
PROVIDERS: PCP Nurse Practitioner Family; Visit Provider Physician Assistant
DX: E66.9 Obesity, unspecified (principal); E78.5 Hyperlipidemia, unspecified; I10 Essential (primary) hypertension; J44.9 Chronic obstructive pulmonary disease, unspecified; Z77.090 Contact with and (suspected) exposure to asbestos; Z68.34 Body mass index [BMI] 34.0-34.9, adult; R06.09 Other forms of dyspnea
CPT/HCPCS: 93306

== ENCOUNTER 2023-10-11 11:52 | Outpatient (POV) | payer MEDICARE, BC, SELFPAY | END 2023-10-11 23:59 | disposition home or self-care (01) | LOC: SC 11:53 | PROVIDERS: PCP Nurse Practitioner Family; Visit Provider Dermatology | DX: Z00.00 Encounter for general adult medical examination without abnormal findings (principal) ==

== ENCOUNTER 2023-11-08 13:13 | Emergency (ER) | payer MEDICARE, BC, SELFPAY ==
[2023-11-08 13:23] VITALS: BP 168/84; PULSE 79; RESP 16; TEMP 36.6; O2SAT 95; BMI 25.5
--- NOTE | 2023-11-08 13:31 | XR_ITS ---
FINAL REPORT CLINICAL HISTORY: fall, tenderness and swelling midshaft COMPARISON: None FINDINGS: 2 views of the left forearm were obtained. There is no acute fracture or dislocation. There is mild degenerative change at the wrist. There is posterior forearm soft tissue swelling. IMPRESSION: Soft tissue swelling without acute bony abnormality. Reviewed, Interpreted and Dictated by Tariq Gutierrez III, MD Transcribed by Consuelo Raymond Authenticated and [facility]
--- NOTE | 2023-11-08 13:38 | HMH.EDGENADL ---
Discharge Plan Disposition Patient Disposition: Home, Self-Care Prescriptions Prescriptions: No Action ipratropium-albuterol [Combivent Respimat] 20-100 mcg/actuation mist 1 puff INHALATION Q6H ascorbate calcium (vitamin C) 500 mg tablet 500 mg PO DAILY gabapentin 300 mg capsule 300 mg PO DAILY Qty: 90 0RF hydrocodone-acetaminophen 5-325 mg tablet 1 tab PO TID PRN (Reason: pain) 30 Days Qty: 90 0RF pravastatin 80 mg tablet 80 mg PO DAILY amlodipine 5 mg tablet 5 mg PO DAILY lisinopril 20 mg tablet 20 mg PO BID aspirin 81 mg tablet,delayed release (DR/EC) 81 mg PO DAILY vitamin B complex [B Complex-Vitamin B12] Tablet 1 tab PO DAILY omeprazole 20 mg capsule,delayed release(DR/EC) 20 mg PO DAILY terazosin 1 mg capsule 1 mg PO BID chlorthalidone 25 mg tablet 25 mg PO DAILY meloxicam 7.5 mg tablet See Rx Instructions .ROUTE .COMPLEX Qty: 90 3RF Dose Instruction: TAKE 1 TABLET DAILY FOR ARTHRITIS Rx Instructions: TAKE 1 TABLET DAILY FOR ARTHRITIS Referrals Follow up/Referrals: Jacqueline Beck APRN [Primary Care Provider] - See instructions Clinical Impressions Clinical Impression: Fall, Left forearm pain Discharge ED Provider: Conor Cobos General Adult HPI General Stated complaint: [id number]/12@[email or web address]@1200, lac on Lt arm Time Seen by Provider: 11/08/23 13:17 History of Present Illness HPI narrative: 78-year-old male no relevant medical history presenting with fall. Patient states that he was getting up from off his knees while he was working outside, fell forward while he was getting up, landed on his left forearm. Swelling, bruising, bruising and skin tear on his left forearm. Does not remember his last tetanus. No other injury was sustained. Related Data Home Medications Medication Instructions Recorded Confirmed ipratropium 20 mcg-albuterol 100 1 puff inhalation Q6H Asthma 03/02/18 09/26/23 mcg/actuation mist for inhalation (Combivent Respimat) aspirin 81 mg tablet,delayed 81 mg PO DAILY Blood thinner 04/03/19 09/26/23 release ascorbate calcium (vitamin C) 500 500 mg PO DAILY Supplement 11/06/19 09/26/23 mg tablet vitamin B complex (B 1 tab PO DAILY 07/21/20 09/26/23 Complex-Vitamin B12 tablet) chlorthalidone 25 mg tablet 25 mg PO DAILY 10/05/21 09/26/23 omeprazole 20 mg capsule,delayed 20 mg PO DAILY 10/05/21 09/26/23 release terazosin 1 mg capsule 1 mg PO BID 10/05/21 09/26/23 amlodipine 5 mg tablet 5 mg PO DAILY 09/01/23 09/26/23 pravastatin 80 mg tablet 80 mg PO DAILY 09/05/23 09/26/23 lisinopril 20 mg tablet 20 mg PO BID 09/26/23 09/26/23 Previous Rx's Medication Instructions Recorded meloxicam 7.5 mg tablet See Rx Instructions .Route 10/03/20 .COMPLEX #90 tabs gabapentin 300 mg capsule 300 mg PO DAILY Pain #90 caps 01/28/21 hydrocodone 5 mg-acetaminophen 325 1 tab PO TID PRN pain 30 days #90 01/28/21 mg tablet tabs Allergies Allergy/AdvReac Type Severity Reaction Status Date / Time amoxicillin [From Augmentin] Allergy Unknown Verified 09/26/23 13:11 clavulanic acid Allergy Unknown Verified 09/26/23 13:11 [From Augmentin] [facility] Disclaimer: The information contained in this section may have been updated after the patient was seen, as this information can be updated by other users. Medical History (Updated 11/08/23 @ 13:54 by Conor Cobos MD) Otalgia of right ear Chronic eustachian tube dysfunction Social History Smoking Status: Former smoker tobacco type: cigarettes second hand exposure: No alcohol intake: former substance use type: denies use current occupational status: retired Travel in the last 8 weeks: None household members: none housing: house current occupational exposures/hazards: No caffeine: No ROS Obtained: Yes All systems reviewed & no additional complaints except as documented Physical Exam General General appearance: alert and in no apparent distress Head Head exam: atraumatic and normocephalic Eye Eye exam: Present normal appearance, PERRL and EOMI ENT ENT exam: Present mucous membranes moist Neck Neck exam: Present normal inspection, full ROM and trachea midline Respiratory Respiratory exam: Absent respiratory distress, wheezes, stridor, accessory muscle use or prolonged expiratory phase Cardiovascular Cardiovascular exam: Present normal rhythm Abdominal Exam Abdominal exam: Present soft; Absent distention, tenderness, guarding, rebound or rigidity Extremities Exam Extremities exam: Present other (Swelling, tenderness, bruising, skin tear at midshaft left forearm. Tenderness mostly along the midshaft ulna. Range of motion intact, neurovascularly intact. Hemostatic and not grossly contaminated) Neurological Exam Neurological exam: Present alert, oriented X3, CN II-XII intact and normal gait; Absent motor sensory deficit Skin Skin exam: Present warm and dry; Absent diaphoresis or erythema Medical Decision Making Medical Records Medical records reviewed: Yes I reviewed the patient's medical records. Willie Inquiry Pt receiving controlled substance: No Willie was queried for this patient: No Orders (Tests/Meds): ED MEDICATIONS Discontinued Medications Generic Name Dose Route Start Last Admin Trade Name Freq PRN Reason Stop Dose Admin Tetanus/Reduced Diphtheria/Acell Pertussis 0.5 ml 11/08/23 13:31 Tet/Diphth/Pert-Adult 0.5ml Syringe IM 11/08/23 13:32 .ONCE ONE ORDERS Category Date Time Status Forearm XR left 2 views [XR forearm LT 2V] Stat Exams 11/08/23 13:31 Taken Medical Decision Narrative: 78-year-old male no relevant medical history presenting with fall. Patient states that he was getting up from off his knees while he was working outside, fell forward while he was getting up, landed on his left forearm. Swelling, bruising, bruising and skin tear on his left forearm. Does not remember his last tetanus. No other injury was sustained. History was obtained via conversation with patient. On arrival, patient hemodynamically stable, alert, oriented x4, appropriate, GCS 15, moving all extremities spontaneously, pupils equal and reactive to light. Full physical exam performed and significant for well-appearing male no acute distress. He does have superficial skin tear without gross contamination midshaft left forearm dorsally. Neurovascular intact, range of motion intact, not made worse with supination and pronation of left forearm. Tenderness along the ulna midshaft. Differential includes hematoma, fracture, sprain, strain, dislocation, among others. Patient was given Tdap for symptomatic management and correction of underlying abnormalities. Workup independently interpreted and significant for fracture or bony abnormality of forearm. See radiology read for full review of final results. On reevaluation, patient resting comfortably after Tdap. Given patient presentation, workup, history, this most likely represents skin tear in the setting of fall without complication. Because patient at baseline without signs or symptoms of clinical decompensation, deemed appropriate for discharge. Results were relayed to patient who voiced understanding and were agreeable to outpatient management and follow up. At the time of discharge the patient was hemodynamically stable, tolerating PO, and mobilizing appropriately. Critical Care Critical Care Time Critical Care Time: No
[2023-11-08] MEDS: TET/DIPHTH/PERT-ADULT 0.5ML SYRINGE 0.5 ML IM (13:59)
[2023-11-08 14:18] VITALS: BP 152/85; PULSE 73; RESP 19; TEMP 36.6; O2SAT 94
== END 2023-11-08 14:19 | disposition home or self-care (01) ==
PROVIDERS: Emergency Provider Emergency Medicine; PCP Nurse Practitioner Family
DX: M79.631 Pain in right forearm (principal); S51.811A Laceration without foreign body of right forearm, initial encounter; Z87.891 Personal history of nicotine dependence; W18.30XA Fall on same level, unspecified, initial encounter; Z23 Encounter for immunization
CPT/HCPCS: 73090; 90471; 90715; 99283

== ENCOUNTER 2023-11-30 12:03 | Outpatient (CLI) | payer MEDICARE, BC, SELFPAY ==
--- NOTE | 2023-11-30 12:08 | XR_ITS ---
FINAL REPORT CLINICAL HISTORY: Rt SHoulder pain FINDINGS: Right shoulder Three views were obtained. There is no acute fracture or dislocation. There is mild AC joint degenerative change. There are moderate glenohumeral joint degenerative changes with soft tissue calcifications. IMPRESSION: Mild and moderate degenerative changes as above. Reviewed, Interpreted and Dictated by Tariq Gutierrez III, MD Transcribed by Maria Luisa Berg Authenticated and [facility]
--- NOTE | 2023-11-30 12:08 | XR_ITS ---
FINAL REPORT CLINICAL HISTORY: Rt Knee Pain FINDINGS: Right knee Three views were obtained. There is no acute fracture or dislocation. There are mild degenerative changes. There is no joint effusion. IMPRESSION: Mild degenerative changes. Reviewed, Interpreted and Dictated by Tariq Gutierrez III, MD Transcribed by Maria Luisa Berg Authenticated and [facility]
--- NOTE | 2023-11-30 12:08 | XR_ITS ---
FINAL REPORT CLINICAL HISTORY: Lt Knee Pain FINDINGS: Left knee Three views were obtained. There is no acute fracture or dislocation. There are mild degenerative changes. Mild vascular calcification is identified. There is no joint effusion. IMPRESSION: Mild degenerative changes. Reviewed, Interpreted and Dictated by Tariq Gutierrez III, MD Transcribed by Maria Luisa Berg Authenticated and [facility]
== END 2023-11-30 23:59 ==
PROVIDERS: PCP Nurse Practitioner Family; Visit Provider Physician Assistant Surgical
DX: M25.511 Pain in right shoulder (principal); M25.561 Pain in right knee; M25.562 Pain in left knee
CPT/HCPCS: 73030; 73562

== ENCOUNTER 2023-12-21 13:59 | Outpatient (CLI) | payer MEDICARE, BC, SELFPAY ==
--- NOTE | 2023-12-21 14:00 | CT_ITS ---
FINAL REPORT TECHNIQUE: Axial images were obtained from the lung apex to the mid abdomen by computed tomography. This study was performed with techniques to keep radiation doses as low as reasonably achievable, (ALARA). Individualized dose reduction techniques using automated exposure control or adjustment of mA and/or kV according to the patient's size were employed. CLINICAL HISTORY: Lung nodule COMPARISON: None FINDINGS: There is no axillary adenopathy. There is no hilar or mediastinal adenopathy. There are calcified right hilar lymph nodes noted. There are moderate vascular calcifications of the aortic arch. The heart is proper size. There is no pericardial or pleural effusion. Limited images of the upper abdomen demonstrate moderate fatty infiltration of the liver. The patient is status post cholecystectomy. There is scarring at the left base. There is a 3 mm noncalcified nodule in the right lower lobe best seen on image 173 of series 3. No suspicious infiltrate identified. IMPRESSION: 3 mm noncalcified nodule in the right lower lobe. Reviewed, Interpreted and Dictated by Thom Ferrell MD Transcribed by BHARAT Salazar Authenticated and [facility]
[2023-12-21 15:40] VITALS: PULSE 76; PULSE 80
[2023-12-21] MEDS: ALBUTEROL 0.083% 2.5 MG/3 ML NEB IH (15:40)
== END 2023-12-21 23:59 | disposition home or self-care (01) ==
LOC: RAD 14:00
PROVIDERS: PCP Nurse Practitioner Family; Visit Provider Internal Medicine Pulmonary Disease
DX: R91.8 Other nonspecific abnormal finding of lung field (principal); R06.09 Other forms of dyspnea
CPT/HCPCS: 71250; 94060; 94618; 94640; 94726; 94729

== ENCOUNTER 2023-12-22 11:00 | Outpatient (RCR) | payer MEDICARE, BC, SELFPAY | END 2023-12-22 12:00 | disposition home or self-care (01) | LOC: PT 11:00 | PROVIDERS: Visit Provider Orthopaedic Surgery | DX: M48.062 Spinal stenosis, lumbar region with neurogenic claudication (principal) | CPT/HCPCS: 97010; 97014; 97110; 97163; 97164; 97530; G0283 ==

== ENCOUNTER 2024-01-17 11:13 | Outpatient (POV) | payer MEDICARE, BC, SELFPAY | END 2024-01-17 23:59 | disposition home or self-care (01) | LOC: SC 11:14 | PROVIDERS: PCP Nurse Practitioner Family; Visit Provider Dermatology | DX: Z00.00 Encounter for general adult medical examination without abnormal findings (principal) ==

== ENCOUNTER 2024-05-22 13:35 | Outpatient (POV) | payer MEDICARE, BC, SELFPAY | END 2024-05-22 23:59 | disposition home or self-care (01) | LOC: SC 13:36 | PROVIDERS: Visit Provider Dermatology | DX: Z00.00 Encounter for general adult medical examination without abnormal findings (principal) ==

== ENCOUNTER 2024-09-18 12:30 | Outpatient (CLI) | payer MEDICARE, BC, SELFPAY ==
[2024-09-18] MEDS: ALBUTEROL 0.083% 2.5 MG/3 ML NEB IH (13:50)
== END 2024-09-18 23:59 | disposition home or self-care (01) ==
LOC: RT 12:31
PROVIDERS: PCP Nurse Practitioner Family; Visit Provider Internal Medicine Pulmonary Disease
DX: R06.09 Other forms of dyspnea (principal); J44.9 Chronic obstructive pulmonary disease, unspecified
CPT/HCPCS: 94060; 94618; 94726; 94729; J7613

== ENCOUNTER 2024-11-09 11:37 | Outpatient (CLI) | payer MEDICARE, BC, SELFPAY ==
[2024-11-09 12:05] LABS: Basophils % 0.4 % (0.1-2.0); Eosinophils % 0.4 % (0.1-12.0); Hematocrit 39.2 % (42.0-52.0); Hemoglobin 13.1 g/dL (14.1-18.0); Lymphocytes # 0.8 K/mm3 (0.7-4.5); Mean Corpuscular HGB Conc 33.4 g/dL (31.8-35.4); Mean Corpuscular Hemoglobin 31.8 pg (27.0-31.2); Mean Corpuscular Volume 95.1 fl (80-94); Mean Platelet Volume 11.1 fl (7.4-10.4); Monocytes # 0.5 K/mm3 (0.1-1.0); Monocytes % 10.4 % (1.7-9.3); Neutrophils # 3.2 K/mm3 (1.8-7.8); Neutrophils % 71.4 % (37.0-80.0); Platelet Count 168 K/mm3 (142-424); Red Blood Count 4.12 M/mm3 (4.60-6.20); Red Cell Distribution Width 12.8 % (11.5-17.5); White Blood Count 4.5 K/mm3 (4.8-10.8)
[2024-11-09 12:27] LABS: Alanine Aminotransferase 42 U/L (12-78); Albumin/Globulin Ratio 1.7 (1.1-1.8); Alkaline Phosphatase 66 U/L (38-126); Anion Gap 11.9 mEq/L (5-15); Aspartate Amino Transferase 37 U/L (17-59); Bilirubin,Total 0.5 mg/dl (0.2-1.3); Blood Urea Nitrogen 30 mg/dl (9-20); Calcium 8.6 mg/dl (8.4-10.2); Carbon Dioxide 27 mmol/L (22.0-30.0); Chloride 102 mmol/L (98-107); Estimated Glomerular Filt Rate 65 ml/min (>60); GFR (African American) 78 ML/MIN (>60); Globulin 2.3 g/dL (1.3-3.2); Glucose 111 mg/dl (74-100); Potassium 3.9 mmoL/L (3.5-5.1); Sodium 137 mmol/L (136-145); Total Protein,Serum 6.3 g/dl (6.3-8.2)
== END 2024-11-09 23:59 | disposition home or self-care (01) ==
LOC: LAB 11:38
PROVIDERS: PCP Nurse Practitioner Family; Visit Provider Nurse Practitioner Family
DX: K52.9 Noninfective gastroenteritis and colitis, unspecified (principal)
CPT/HCPCS: 36415; 80053; 85025

== ENCOUNTER 2024-12-10 09:58 | Outpatient (CLI) | payer MEDICARE, BC, SELFPAY ==
[2024-12-11 12:42] LABS: Prostate Specific Ag 4.8 ng/mL (0.0-4.0)
== END 2024-12-10 23:59 | disposition home or self-care (01) ==
LOC: LAB 09:59
PROVIDERS: PCP Nurse Practitioner Family; Visit Provider Urology
DX: R97.20 Elevated prostate specific antigen [PSA] (principal); N40.0 Benign prostatic hyperplasia without lower urinary tract symptoms
CPT/HCPCS: 36415; 84153; 84154

== ENCOUNTER 2024-12-31 12:55 | Outpatient (CLI) | payer MEDICARE, BC, SELFPAY ==
--- NOTE | 2024-12-31 13:30 | US_ITS ---
FINAL REPORT CLINICAL HISTORY: rule out PAD, previous smoker, HTN, DM, HLD, bilateral claudication, obesity. FINDINGS: ANKLE-BRACHIAL PRESSURE INDICES Pressure indices are as follows: RIGHT LOWER EXTREMITY: Ankle-brachial pressure index: 1.43 Comments: Mildly elevated LEFT LOWER EXTREMITY: Ankle-brachial pressure index: 1.32 Comments: Mildly elevated IMPRESSION: Mildly elevated waveforms bilaterally. Abnormal findings are concerning for heavy calcification causing incomplete compressibility of the arteries. Reviewed, Interpreted and Dictated by Lamar Riley MD Transcribed by Consuelo Raymond Authenticated and [facility]
--- NOTE | 2024-12-31 14:00 | CA_ITS ---
FINAL REPORT CLINICAL HISTORY: previous smoker, HTN, DM, HTN, HLD, obesity, bilateral claudication. Bilateral lower extremity edema COMPARISON: None FINDINGS: DUPLEX VENOUS SONOGRAPHY OF THE BILATERAL LOWER EXTREMITIES Multiple transverse and longitudinal scans were performed of the femoropopliteal deep venous systems, with augmentation and compression maneuvers. Normal phasic flow was noted in the visualized deep venous systems. No intraluminal increased echogenicity is noted to suggest thrombus. There is normal compression and augmentation of the venous structures. No abnormal venous collaterals are seen. IMPRESSION: No evidence of deep venous thrombosis of the bilateral lower extremities. Reviewed, Interpreted and Dictated by Lamar Riley MD Transcribed by Consuelo Raymond Authenticated and [facility]
--- NOTE | 2024-12-31 15:15 | CA_ITS ---
APPROVED REPORT EXAM: Comprehensive 2D, Doppler, and color-flow Echocardiogram Tour Director: Bijal Cruz RT(R) Ht: 5 ft 6 in Wt: 240lbs BSA: 2.16 BP: 126/62 mmHg Indications: dyspnea, CP, COPD, ex smoker, fatigue, edema, HTN, hyperlipidemia, SOB, claudication 2D Dimensions Left Atrium 3.36 cm M: 3.0 - 4.0 LVEF (Glover's) 53.90 % M: 52 - 72 LVOT 2.14 cm (M/F) 1.5-2.5 LV Volume 98.50 mL M: 62 - 150 LV Volume Index 45.6 mL/m2 M: 34 - 74 EF AP4 55.00 % EF AP2 52.4 % EF BP 53.9 % GL Strain -16.9 % M-Mode Dimensions RVDd 3.28 cm (0.9-2.6) LVDd 5.13 cm (3.5-5.7) Ao Diam 3.09 cm (2.0-3.7) LVDs 3.56 cm (3.5-5.7) IVSd 0.87 cm (0.6-1.1) PWd 1.12 cm (0.6-1.1) EF (Teich) 57.80% FS 30.60% EDV (Teich) 125.50 mL ESV (Teich) 53.00 mL LV Diastology E Decel Time 492 (160-240 msec) E/A Ratio 0.6 MED E' 7.6 (>= 7 cm/sec) E'/MED E' Ratio 8.63 (<= 14) LAT E' 8.9 (>= 10 cm/sec) E/LAT E' Ratio 7.37 (<= 14) Mitral Valve MV E Max Conner. 66.0 (40-130 cm/s) MV A Velocity 115.0 (40-130 cm/s) E/A Ratio 0.57 MV Decel. Time 492 (160-240 ms) Left Ventricle The left ventricle is normal size. The left ventricular systolic function is normal. The left ventricular ejection fraction is within the normal range. There is increased LV wall thickness. There is normal LV segmental wall motion. Transmitral Doppler flow pattern suggests impaired LV relaxation. LVEF is 55%. Right Ventricle The right ventricle is normal size. The right ventricular systolic function is normal. Atria The left atrium size is normal. The right atrium size is normal. There is no Doppler evidence of interatrial shunt. Aortic Valve Aortic valve is mildly thickened. There is no aortic valvular stenosis. Trace aortic regurgitation. Mitral Valve The mitral valve is normal in structure. No evidence of mitral valve stenosis. Trace mitral regurgitation. Tricuspid Valve Tricuspid valve is grossly normal in structure and function. Trace tricuspid regurgitation. There is insufficient TR jet to estimate RVSP. Pulmonic Valve The pulmonary valve is normal in structure. Trace pulmonic regurgitation. Great Vessels The aortic root is normal in size. IVC is normal in size and collapses >50% with inspiration. Pericardium There is no pericardial effusion. Other Information Study Quality: Fair Conclusion Normal biventricular systolic function. No significant valvular stenosis or regurgitation. Electronically signed by : Karina Monteiro MD 01/07/2025 13:12:44
== END 2024-12-31 23:59 | disposition home or self-care (01) ==
LOC: RT 12:58
PROVIDERS: PCP Nurse Practitioner Family; Visit Provider Nurse Practitioner Family
DX: I73.9 Peripheral vascular disease, unspecified (principal); J44.9 Chronic obstructive pulmonary disease, unspecified; I10 Essential (primary) hypertension; E78.5 Hyperlipidemia, unspecified; E11.9 Type 2 diabetes mellitus without complications; E66.9 Obesity, unspecified; R93.6 Abnormal findings on diagnostic imaging of limbs; R06.02 Shortness of breath; R53.83 Other fatigue; R07.9 Chest pain, unspecified; Z87.891 Personal history of nicotine dependence
CPT/HCPCS: 93306; 93923; 93970

== ENCOUNTER 2025-01-03 11:16 | Outpatient (CLI) | payer MEDICARE, BC, SELFPAY ==
--- NOTE | 2025-01-03 | CA_ITS ---
APPROVED REPORT Exam: Pharmacologic Technologist: Bessy Pires Ht: 5 ft 7 in Wt: 242 lbs BSA: 2.19 m2 HR: 78 bpm BP: 150/72 mmHg Medical History Medical History: Smoking Cardiac Risk Factors: FHX of CAD, Smoking Stress Test Details Test: Lexiscan HR Resting HR: 78 bpm Max Heart Rate (APMHR): 142.144709 bpm Target HR (85% APMHR): 120.694189 bpm Recovery HR: 78 bpm BP Resting BP: 150.0/72.0 mmHg Max BP: 150.0/72.0 mmHg Recovery BP: 135.0/68.0 mmHg ECG Stress ECG Conclusion Pt had soa and nausea with Lexiscan Unremarkable with Lexiscan Electronically signed by : Karina Monteiro MD 01/06/2025 22:33:55
--- NOTE | 2025-01-03 12:00 | NM_ITS ---
APPROVED REPORT Exam: Nuclear Stress Test Indication: SOB, Fatigue, HTN, DM, High cholesterol Patient Location: Outpatient Stress Tech: Bessy Pires MA Tech:Saray Garcia, ARRT, RT (R)(N) Ht: 5 ft 6 in Wt: 240 lbs HR: 75 bpm BP: 150/72 mmHg BSA: 2.16 m2 TID: 1.18 BMI: 38.7 History: SOB, Fatigue, HTN, DM, High cholesterol Procedure: Patient received 0.4 mg of intravenous Lexiscan, resting heart rate 75 bpm, resting blood pressure 150/72 mmHg, with AdenosineLexiscan maximum heart rate achieved was 92 bpm which is % of the maximum predicted heart rate and blood pressure was 134/54 mmHg. With Lexiscan, patient denied any complaint of chest pain. Cardiac Stress and Resting SPECT Images: Cardiac Stress and Resting SPECT images were obtained using technetium 99m Myoview 29.9 mCi stress and 10.37 mCi at rest. Resting and stress imaging (positions demonstrate a medium sized, moderate, partially reversible perfusion defect in the basal to mid inferior LV segal. Gated imaging demonstrates normal global LV systolic function. LVEF is calculated at 66%. Conclusion: Medium sized, moderate, partially reversible perfusion defect in the basal to mid inferior LV segal. Findings are suggestive of partial reversible ischemia. Gated imaging demonstrates normal global LV systolic function. LVEF is calculated at 66%. Electronically signed by : Karina Monteiro MD 01/06/2025 22:28:13
[2025-01-03] MEDS: REGADENOSON 0.4MG/5ML SYRINGE 0.4 MG IV (14:33)
[2025-01-03] MEDS: ISOTOPE MYOVIEW (PER STUDY) 1 DOSE IV (14:33)
[2025-01-03] MEDS: SODIUM CHLORIDE 0.9% 10ML SYR (RAD ONLY) 10 ML IV ×2 (14:33)
== END 2025-01-03 23:59 | disposition home or self-care (01) ==
LOC: RAD 11:17
PROVIDERS: PCP Nurse Practitioner Family; Visit Provider Nurse Practitioner Family
DX: R06.02 Shortness of breath (principal); R53.83 Other fatigue; I73.9 Peripheral vascular disease, unspecified; R22.43 Localized swelling, mass and lump, lower limb, bilateral
CPT/HCPCS: 78452; 93017; 93018; A9502; J2785

== ENCOUNTER 2025-01-25 07:29 | Day surgery (SDC) | payer MEDICARE, BC, SELFPAY ==
[2025-01-25] VITALS (10 sets, daily range): BP systolic 123–158; BP diastolic 62–76; PULSE 57–76; RESP 18–22; TEMP 36.9–37; O2SAT 93–98; BMI 37.7
--- NOTE | 2025-01-25 07:15 | IR_ITS ---
APPROVED REPORT Patient Location: Outpatient Balancer Scale: BENITO Avitia RT (R) PROCEDURES Left heart catheterization Left ventriculogram Selective coronary angiogram Catheter placement in the left common iliac artery with a left antegrade iliofemoral runoff to the left foot Catheter placement in the right common iliac artery with right antegrade iliofemoral runoff to the right foot Catheter placed in the distal abdominal aorta with distal abdominal aortography INDICATION Angina pectoris, Abnormal Myoview, Abnormal MARYAM, Morovis class III claudication Informed consent was obtained prior to the procedure. COMPLICATIONS NONE Estimated Blood Loss: LESS THAN 10 ML TECHNIQUE One percent lidocaine used to anesthetize the right anterior aspect of the wrist. The right radial artery was accessed via the Seldinger technique. A 6 [place] sheath was placed in the right radial artery. 2.5 mg of Verapamil, 800 mcg of nitroglycerin, 1mg Lidocaine and 5000 U Heparin were given through the arterial sheath. The JL3 catheter was also used to perform left heart catheterization, left ventriculogram and selective coronary angiogram. The PV multi curve was used to select each common iliac artery and performed bilateral iliofemoral runoff to each foot. The catheter was pulled back to the abdominal aorta where abdominal aortography was performed. At the end of the procedure the sheath was removed good hemostasis was achieved using Traclet band, patient was transferred to the postop holding area in stable condition. ANGIOGRAPHIC RESULTS The left main artery Normal The left anterior descending artery Has proximal tandem 30% stenoses with luminal regularities in the midsegment The circumflex artery Is dominant with 10% luminal regularities The right coronary artery Nondominant 10% luminal regularities The ESCOBAR ventriculogram reveals Normal 65% The left ventricular end-diastolic pressure 15 mmHg Left common internal/external iliac arteries are normal. Left common femoral profunda femoris and superficial femoral artery are widely patent. The left popliteal artery has luminal regularities 10%. There is two-vessel runoff below the knee from the anterior and posterior tibialis artery Right common internal and external iliac arteries are normal. Right common femoral artery profunda femoris and superficial femoral arteries widely patent. The right popliteal artery is widely patent. There is single-vessel runoff below the knee on the right side from the posterior tibialis artery. Both anterior tibialis artery and peroneal arteries are proximally occluded IMPRESSION Mild proximal LAD disease as described above Normal ejection fraction Normal LVEDP Normal iliofemoral angiogram with two-vessel runoff below the knee on the left side Normal iliofemoral angiogram with single-vessel runoff below the knee on the right side PLAN 1. Medical management with risk factor modification Electronically signed by : Ben Baca MD 01/30/2025 12:59:57
[2025-01-25 08:16] LABS: Basophils % 0.4 % (0.1-2.0); Eosinophils # 0.1 Kmm3 (0.0-0.4); Eosinophils % 1.6 % (0.1-12.0); Hematocrit 42.4 % (42.0-52.0); Hemoglobin 14.4 g/dL (14.1-18.0); Immature Granulocytes # 0.03 10^3uL; Immature Granulocytes % 0.4 %; Lymphocytes # 1.2 K/mm3 (0.7-4.5); Lymphocytes % 16.1 % (10-50); Mean Platelet Volume 11.4 fl (7.4-10.4); Monocytes # 0.6 K/mm3 (0.1-1.0); Monocytes % 7.5 % (1.7-9.3); Neutrophils # 5.6 K/mm3 (1.8-7.8); Nucleated Red Blood Cells # 0 10^3/uL; Nucleated Red Blood Cells % 0 %; Platelet Count 188 K/mm3 (142-424); Red Blood Count 4.37 M/mm3 (4.60-6.20); Red Cell Distribution Width 12.5 % (11.5-17.5); Red Cell Distribution Width-SD 44.8 fL; White Blood Count 7.6 K/mm3 (4.8-10.8)
[2025-01-25 08:25] LABS: Anion Gap 12.1 mEq/L (5-15); Blood Urea Nitrogen 25 mg/dl (9-20); Calcium 9.7 mg/dl (8.4-10.2); Carbon Dioxide 29 mmol/L (22.0-30.0); Chloride 103 mmol/L (98-107); Creatinine Clearance Estimated 86 mL/min (50-200); Estimated Glomerular Filt Rate 65 ml/min (>60); GFR (African American) 78 ML/MIN (>60); Glucose 157 mg/dl (74-100); Potassium 4.1 mmoL/L (3.5-5.1); Sodium 140 mmol/L (136-145)
[2025-01-25] MEDS: HEPARIN 1,000 UNITS/500ML NS (CATH LAB) 3000 UNIT IV (09:36)
[2025-01-25] MEDS: HEPARIN 1,000 UNITS/ML 10ML VIAL (CATH LAB) 5000 UNIT IV (09:36)
[2025-01-25] MEDS: VERAPAMIL 2.5MG/ML 2ML VIAL 2.5 MG IV (09:37)
[2025-01-25] MEDS: LIDOCAINE 1% 10ML MDV 10 ML IJ (09:37)
[2025-01-25] MEDS: diphenhydrAMINE 50MG/ML VIAL 50 MG IV (09:37)
[2025-01-25] MEDS: 0.9 % SODIUM CHLORIDE 500 ML 25 ML IV (09:37)
[2025-01-25] MEDS: NITROGLYCERIN 800MCG/8ML SYR (CATH LAB) 800 MCG IA (09:37)
[2025-01-25] MEDS: MIDAZOLAM HCL 1MG/ML 5ML VIAL 1 MG IV (10:12)
[2025-01-25] MEDS: FENTANYL 100MCG/2ML VIAL 50 MCG IV (10:12)
[2025-01-25] MEDS: IOPAMIDOL-370 (76%);100ML BOTTLE 70 ML IV (13:04)
[2025-01-25] MEDS: IOHEXOL-240 100ML BOTTLE 100 ML IV (13:05)
== END 2025-01-25 12:30 | disposition home or self-care (01) ==
PROVIDERS: PCP Nurse Practitioner Family; Visit Provider Internal Medicine
PROC: 4A023N7 Measurement of Cardiac Sampling and Pressure, Left Heart, Percutaneous Approach (ICD-10-PCS; CPT 93452; principal; 2025-01-25 07:15)
DX: I25.119 Atherosclerotic heart disease of native coronary artery with unspecified angina pectoris (principal); I70.213 Atherosclerosis of native arteries of extremities with intermittent claudication, bilateral legs; R93.1 Abnormal findings on diagnostic imaging of heart and coronary circulation; R53.83 Other fatigue; I10 Essential (primary) hypertension; J44.9 Chronic obstructive pulmonary disease, unspecified; E78.5 Hyperlipidemia, unspecified; Z87.891 Personal history of nicotine dependence; Z79.82 Long term (current) use of aspirin; Z79.84 Long term (current) use of oral hypoglycemic drugs; Z79.899 Other long term (current) drug therapy; Z88.1 Allergy status to other antibiotic agents; Z88.0 Allergy status to penicillin
CPT/HCPCS: 93458; 36200; 80048; 85025; 99152; 99153; C1725; C1760; C1769; J1200; J1644; J2003; J3010; J7040; Q9966; Q9967

== ENCOUNTER 2025-02-07 08:03 | Outpatient (CLI) | payer MEDICARE, BC, SELFPAY ==
--- OUTSIDE RECORDS SUMMARY | 2025-02-07 08:07 | XMS_ITS | Clinical Summary ---
Author Organization Healthcare Address [address] [place] [address] Care Team Providers Care Almond Paste Mixer Name Role Phone Jacqueline Beck APRN Primary Care Provider [phone] Family History Medical History Relation Name Comments Skin cancer Mother Relation Name Status Comments Mother Social History Tobacco Use Types Packs/Day Years Used Date Smoking Tobacco: Former Alcohol Use Standard Drinks/Week Comments No 0 (1 standard drink = 0.6 oz pur e alcohol) Sex and Gender Information Value Date Recorded Sex Assigned at Not on file Legal Sex Male 6:23 PM EDT Gender Identity Not on file Sexual Orientation Not on file Last Filed Vital Signs Vital Sign Reading Time Taken Comments Blood Pressure - - Pulse - - Temperature - - Respiratory Rate - - Oxygen Saturation - - Inhaled Oxygen Concentration - - Weight 93 kg (205 lb 0.1 oz) 11/19/2013 1:41 PM EDT Height 175.3 cm (5' 9 ) 11/19/2013 1:41 PM EDT Body Mass Index 30.27 11/19/2013 1:41 PM EDT Plan of Treatment Not on file Care Teams Almond Paste Mixer Relationship Specialty Start Date End Date Jacqueline Beck APRN [facility] [place] [address] PCP - General 01/09/21
[2025-02-07 08:58] LABS: Basophils % 0.4 % (0.1-2.0); Eosinophils # 0.1 Kmm3 (0.0-0.4); Eosinophils % 1.9 % (0.1-12.0); Hematocrit 41.8 % (42.0-52.0); Hemoglobin 14.2 g/dL (14.1-18.0); Immature Granulocytes # 0.04 10^3uL; Immature Granulocytes % 0.5 %; Lymphocytes % 13.1 % (10-50); Mean Corpuscular Hemoglobin 32.9 pg (27.0-31.2); Mean Corpuscular Volume 96.8 fl (80-94); Monocytes # 0.5 K/mm3 (0.1-1.0); Neutrophils # 5.8 K/mm3 (1.8-7.8); Neutrophils % 78.1 % (37.0-80.0); Nucleated Red Blood Cells # 0 10^3/uL; Nucleated Red Blood Cells % 0 %; Platelet Count 183 K/mm3 (142-424); Red Blood Count 4.32 M/mm3 (4.60-6.20); Red Cell Distribution Width 12.4 % (11.5-17.5); Red Cell Distribution Width-SD 44.6 fL; White Blood Count 7.5 K/mm3 (4.8-10.8)
[2025-02-07 09:20] LABS: Albumin Level 4.4 g/dl (3.5-5.0); Chloride 105 mmol/L (98-107); Potassium 4.3 mmoL/L (3.5-5.1); Sodium 140 mmol/L (136-145)
[2025-02-07 09:22] LABS: Blood Urea Nitrogen 30 mg/dl (9-20); Estimated Glomerular Filt Rate 72 ml/min (>60); GFR (African American) 87 ML/MIN (>60)
[2025-02-07 09:23] LABS: Alanine Aminotransferase 36 U/L (12-78); Alkaline Phosphatase 88 U/L (38-126); Anion Gap 11.3 mEq/L (5-15); Aspartate Amino Transferase 33 U/L (17-59); Bilirubin,Direct 0.1 mg/dl (0.0-0.4); Bilirubin,Indirect 0.3 mg/dL (0.0-0.9); Bilirubin,Total 0.4 mg/dl (0.2-1.3); Bilirubin,Unconjugated 0.3 mg/dL (0.0-1.1); Carbon Dioxide 28 mmol/L (22.0-30.0); Cholesterol 166 mg/dl (140-200); Glucose 152 mg/dl (74-100); Magnesium 1.4 mg/dl (1.6-2.3); Triglycerides 158 mg/dl (30-150); VLDL Cholesterol 32 mg/dL (0-40)
[2025-02-07 09:24] LABS: Chol/HDL Ratio 4.2 (1-3.5); HDL Cholesterol 40 mg/dl (40-60)
[2025-02-07 09:34] LABS: Direct LDL Cholesterol 80.44 mg/dL (100-129)
[2025-02-07 09:38] LABS: Free T4 (Free Thyroxine) 0.93 ng/dl (0.78-2.19)
[2025-02-07 09:53] LABS: Thyroid Stimulating Hormone 5.02 uIU/mL (0.465-4.68)
== END 2025-02-07 23:59 | disposition home or self-care (01) ==
LOC: LAB 08:05
PROVIDERS: PCP Nurse Practitioner Family; Visit Provider Nurse Practitioner Family
DX: I10 Essential (primary) hypertension (principal); R53.83 Other fatigue
CPT/HCPCS: 36415; 80048; 80061; 80076; 83735; 84439; 84443; 85025

== ENCOUNTER 2025-03-12 07:47 | Outpatient (CLI) | payer MEDICARE, BC, SELFPAY ==
--- OUTSIDE RECORDS SUMMARY | 2025-03-12 07:49 | XMS_ITS | Data Portability ---
Author Organization ZULEMA JOAN Hernandez [facility] Address [address] [place] [address] Care Team Providers Care Ceramic Painter Name Role Phone ROZINA HERNÁNDEZ Primary Care Provider [phone] Assessment No assessment recorded. Plan of Treatment Reminders Order Date Submit Date Provider Last Modified By Organization Details Last Modified Time Details Appointments None recorded. Lab None recorded. Referral None recorded. Procedures None recorded. Surgeries None recorded. Imaging None recorded. Medication Orders Ciprodex 0.3 %-0.1 % ear drops,susp ension 2021 022 [email or web address] [facility] [address] [place], [address], 3 10:23:30 Patient TargetsNo targets recorded. Patient Instructions Encounter Date Encounter Id Patient Instructions Last Modified By Organization Details Last Modified Time 11/18/2020 [id number] 1. Right cerumenectomy performed. His tube is partially obstructed and there is some purulent discharge around the base. We are going to treat him with antibiotic/steroid drops. If the tube has not cleared, he will contact us. 2. Otovel samples given to patient 3. Continue using hearing aid amplification 4. F/u within the next 6 months for recheck. red Not available 11/18/2020 11:31:04 06/09/2021 [id number] 1. Right cerumenectomy performed-His tube was totally occluded with cerumen I is now partially cleared I will have him continue with sweet oil drops to try to clear the remaining cerumen plug. 2. Recommended using sweet oil in ears 1-2 times a week 3. Follow up in 6 months red Not available 06/09/2021 11:58:12 12/11/2021 [id number] 1. Right cerumenectomy performed today -he did have evidence of granulation tissue and inflammation around the tube. There was some squamous debris that was suctioned clear. He did tolerate this well. 2. RX: Ciprodex - 4 drops BID for 4-5 days 3. Follow up visit in 6 months or sooner if concerns arise. red Not available 12/11/2021 11:28:54 06/15/2022 [id number] 1. Nasopharynosc opy (normal with left septal spur noted). Full risks, complications, and benefits of operative versus non-operative intervention have been thoroughly discussed. I did not see any abnormal lesion within the nasopharynx or the hypopharynx. The bleeding may be related to the irritation from the septal spur. I do think he would benefit from the use of topical saline if he is interested. 2. F/u 6 months [email or web address] Not available 06/15/2022 11:29:28 12/17/2022 [id number] 1. Continue usin g hearing aids 2. F/u in 12 months [email or web address] Not available 12/17/2022 10:51:22 Reason for Referral None Reported. Results Created Date Observation Date Name Description Value Unit Range Abnormal Flag Note LastModifiedBy Organization Detail LastModifiedTime 02/06/2002/04/2021 CT, head, w/o contr ast No observ ation record ed. [facility] [address], [id number], 02/11/2021 11:08:47 Result Notes None recorded. 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 2014 From Automated Load;Provi micki: Mathieu Askew III atus: Active Not Available [facility] 6 07:15:52 Otitis media 20392740 Active 2014 From Automated Load;Provi micki: Mathieu Askew III atus: Active Not Available [facility] 6 07:15:52 Sensorine ural hearing loss 66361777 Active 2014 From Automated Load;Provi mikci: Vazquez Askew III; atus: Active Not Available [facility] 6 07:15:52 Eustachia n tube disorder 42837577 Active 2014 From Automated Load;Provi micki: Vazquez Askew III;St atus: Active Not Available [facility] 6 07:15:52 Sensorine ural hearing loss of bilateral ears 636526561 Active 2014 Provider: Mathieu Askew III atus: Active Not Available [facility] 6 07:15:52 Problem Notes None recorded. Procedures Surgical History Date Name Laterality Status Provider Name and Address Organization Details Recorded Time 022 Nasopharyngoscopy completed Shahida Antoine [facility] 06/15/2022 11:04:24 022 Cerumen removal - Instruments, Unilateral completed Isha Akers [facility] 12/11/2021 10:19:44 021 Cerumen removal - Instruments, Unilateral completed VAZQUEZ ASKEW III, MD [address] [place], [address], [facility] 06/09/2021 11:57:54 021 Cerumen removal - Instruments, Unilateral completed Anupama Medeiros [facility] 11/18/2020 11:17:22 020 Tympanogram completed DAVID POSADA AUD [address] [place], [address], [facility] 06/17/2020 15:58:24 020 Audiogram completed JAMIR LEYVA [address] [place], [address], [facility] 06/17/2020 15:58:21 020 Cerumen removal - Instruments, Unilateral completed Anupama Mala [facility] 06/17/2020 10:34:11 020 Cerumen removal - Instruments, Bilateral completed Anupama Mala [facility] 12/14/2019 10:48:00 019 Cerumen removal - Instruments, Bilateral completed Anupama Mala [facility] 12/12/2018 10:55:48 018 Cerumen removal - Instruments, Bilateral completed Anupamachayo Medeiros [facility] 11/18/2017 11:08:32 017 Tympanogram completed ASMITARic SURESH, AUD [address] [place], [address], [facility] 12/17/2016 12:14:29 017 Audiogram completed ASMITA SURESH, AUD [address] [place], [address], [facility] 12/17/2016 12:14:27 017 Tympanostomy w/Tube, local [facility] 12/17/2016 12:50:42 012 Ears/Nose/Throat Surgery completed Adamfidel Lowa [facility] 12/17/2016 11:34:24 Cholecystectomy completed Anjelica Alexy [facility] 12/17/2016 11:33:50 Hernia repair w/mesh completed Carolyn busby Alexy [facility] 12/17/2016 11:33:55 Ears/Nose/Throat Surgery completed Nidia Daniel [facility] 11/18/2017 10:43:53 Imaging Results None recorded. Procedure Notes None recorded. Medical Equipment None Reported. Allergies Allergen ID Allergen Name Allergen Category Reaction Reaction Severity Criticality Documentation Date Start Date Code Code System Note Provider Name and Address Organization Details Recorded Time 634065 Augmentin medicatio n Not available Not available Not available 12/17/2016 70198 2 RxNorm [facility] 11:36[facility]25 Medications Name Sig Start Date Stop Date Status Note LastModified by Organization Details LastModified Time pravastat in 40 mg tablet Daily 12/11 completed Frequenc y: daily;Me dication Descript ion: pravasta tin; Route:or al; refills: 0 Not Available Not Available Not Available hydrocodo ne 5 mg-acetam inophen 325 mg tablet Take 1 tablet every 6 hours by oral route. active Not Available Not Available No t Available lisinopri l 20 mg tablet Take 1 tablet every day by oral route. active Not Available Not Available No t Available chlorthal idone 25 mg tablet Take 1 tablet every day by oral route. active Not Available Not Available No t Available terazosin 1 mg capsule Take 1 capsule twice a day by oral route. active Not Available Not Available No t Available amlodipin e 5 mg tablet Take 1 tablet every day by oral route. active Not Available Not Available No t Available galantami ne 4 mg/mL oral solution 06/15 completed Medicati on Descript ion: galantam ine; Route:or al; refills: 0 Not Available Not Available Not Available pravastat in 80 mg tablet Take 1 tablet every day by oral route. active Not Available Not Available No t Available lisinopri l 10 mg tablet Daily 12/11 completed Frequenc y: daily;Me dication Descript ion: lisinopr il; Dosage:1 ; Route:or al; refills: 0 Not Available Not Available Not Available gabapenti n 300 mg capsule Take 1 capsule 3 times a day by oral route. active Not Available Not Available No t Available omeprazol e 20 mg capsule,d elayed release Take 1 capsule every day by oral route. active Not Available Not Available No t Available naproxen 500 mg tablet Two times a day 12/17 completed Frequenc y: bid;Medi cation Descript ion: naproxen ; Dosage:1 ; Route:or al; refills: 0 Not Available Not Available Not Available Ventolin HFA 90 mcg/actua tion aerosol inhaler active Medicati on Descript ion: albutero l; Route:in halation ; refills: 0 Not Available Not Available Not Available Ciprodex 0.3 %-0.1 % ear drops,maren pension INSTILL 4 DROPS INTO AFFECTED EAR(S) BY OTIC ROUTE 2 TIMES PER DAY FOR 4-5 DAYS 12/17 completed Not Available Not Available Not Available Vitamin C active Not Available Not Sarah ilable Not Available meloxicam active Not Available Not Sarah ilable Not Available vitamin B complex active Not Available Not Available Not Available Multi Vitamin active Not Available Not Available Not Available Otovel 0.3 %-0.025 % (0.25 mL) ear solution INSTILL 0.25 MILLILIT ER INTO AFFECTED EAR(S) BY OTIC ROUTE EVERY 12 HOURS FOR 7 DAYS 12/17 completed Not Available Not Available Not Available aspirin 81 mg capsule Take 1 capsule every day by oral route. active Not Available Not Available No t Available Vitals Date Recorded Body height Body mass index (BMI) Body weight Heart rate Systolic And Diastolic Provider Name and Address Organization Details Last Updated DateTime 11/18/2020 175.26 cm 30.7 kg/m2 57675.21 g 57 /min 158/70 mm[Hg] Janessa Camacho [facility] 1 10:46:20 Date Recorded Body height Body mass index (BMI) Body weight Body temperature Oxygen saturation Oxygen saturation in Arterial blood by Pulse oximetry Heart rate Systolic And Diastolic Provider Name and Address Organization Details Last Updated DateTime 2 175.26 cm 33.1 kg/m2 635092. 69 g 97.2 [degF] 96 % 96 % 67 /min 149/68 mm[Hg] Lis Rendon [facility] 2 09:52:49 Date Recorded Body height Body mass index (BMI) Body weight Body temperature Heart rate Systolic And Diastolic Provider Name and Address Organization Details Last Updated DateTime 3 175.26 cm 34 kg/m2 783086. 96 g 97.3 [degF] 62 /min 143/76 mm[Hg] Eileen Heron [facility] 3 10:26:18 Date Recorded Body height Body mass index (BMI) Body weight Body temperature Oxygen saturation Oxygen saturation in Arterial blood by Pulse oximetry Heart rate Systolic And Diastolic Provider Name and Address Organization Details Last Updated DateTime 1 175.26 cm 32 kg/m2 30671.5 4 g 97.3 [degF] 98 % 98 % 58 /min 159/74 mm[Hg] Nury Baker [facility] 1 10:49:52 Date Recorded Body height Body mass index (BMI) Body weight Oxygen saturation Oxygen saturation in Arterial blood by Pulse oximetry Heart rate Systolic And Diastolic Provider Name and Address Organization Details Last Updated DateTime 2 175.26 cm 33.1 kg/m2 342301. 69 g 96 % 96 % 66 /min 139/70 mm[Hg] Nury Baker [facility] 2 10:38:15 Social History Question Answer Notes LastModified by Organizat ion Details LastModified Time Tobacco Smoking Status Former Smoker Anjelica pineda, [facility] 12/17/2016 11:33:06 What Was The Date Of Your Most Recent Tobacco Screening? 12/12/2018 [id number] Information n ot available 10/16/2019 Sex: Unknown Functional Status Question Answer Note LastModified by Organization D etails LastModified Time What is your level of alcohol consumption? None asalva Information not available 12/17/2016 Mental Status None recorded. Family History Relationship Description Onset Age of this Age Resolved Age Notes LastModified by Organization Details LastModified Time Unspecified Relation Diabetes mellitus asalva Not available 2016 11:32:52 Son History of hypertension asalva Not available 11:32:58 Medical History Condition Response Cancer N Heart Problems Y Bleeding Disorder N Anesthesia Complications N Diabetes Y Hypertension Y Past Encounters Encounter ID Performer Location Encounter Start Date Encounter Closed Date Diagnosis/Indication Diagnosis SNOMED-CT Code Diagnosis ICD10 Code Diagnosis Note [id number] MD ZULEMA GOLDSMITH III [facility] [address] [place] [address] 12/17/2016 11:27:38 12/17/2016 13:51:45 Mixed conductive AND sensorineural hearing loss 90832618 H90.8 Serous valerie tis media of right ear 8108665746 721714 H65.91 Dysfunctio n of right eustachian tube 9065849232 213359 H69.91 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 [id number] JAMIR RICH [facility] [address] [place] [address] 12/17/2016 11:54:51 12/17/2016 15:35:36 Dysfunction of eustachian tube 18652675 H69.91 Sensorineu ral hearing loss in left ear 1897036742 9109 H90.A22 Mixed cond uctive and sensorineural hearing loss of right ear 8560338533 9105 H90.A31 [id number] VAZQUEZ ASKEW III, MD [place] [address] [place] [address] 11/18/2017 10:19:18 11/25/2017 13:54:44 Sensorineural hearing loss of bilateral ears 266984493 H90.3 Dysfunctio n of right eustachian tube 2040798549 423847 H69.91 - retained T-tube Impacted c erumen of bilateral ears 7628995190 339412 H61.23 [id number] CATHRYN BROOKS MD SURGERY SCHEDULE [address] [place] [address] 06/28/2018 10:34:58 06/28/2018 10:35:25 [id number] MD ZULEMA GOLDSMITH III RD [address] [place] [address] 12/12/2018 10:02:13 12/12/2018 16:09:13 Sensorineural hearing loss of bilateral ears 893472754 H90.3 Dysfunctio n of right eustachian tube 1829488871 855392 H69.91 - retained T-tube Impacted c erumen of bilateral ears 6515685002 724339 H61.23 Acute milton al otitis externa 894485256 B36.9 - right ear [id number] MD ZULEMA GOLDSMITH III RD [address] [place] [address] 12/14/2019 10:30:11 12/14/2019 13:34:28 Sensorineural hearing loss of bilateral ears 456434597 H90.3 Dysfunctio n of right eustachian tube 8436816375 609811 H69.91 - retained T-tube Impacted c erumen of bilateral ears 4505125013 395891 H61.23 Finding of hearing aid 594159411 Z97.4 [id number] MD ZULEMA GOLDSMITH III RD [address] [place] [address] 06/17/2020 09:12:13 06/17/2020 12:18:55 Dysfunction of right eustachian tube 7690804073 176388 H69.91 - retained T-tube Finding of hearing aid 290205109 Z97.4 Retraction of tympanic membrane 19630194 H73.899 He does have some changes of the left tympanic membrane which are related to negative pressure. I mentioned that this could be a potential cause for some of his equilibriu m issues. Impacted c erumen in right ear 5955786738 131993 H61.21 Nasal congestion 5617168 0 R09.81 Hypertroph y of nasal turbinates 31362482 J34.3 Dizziness 351856578 R42 - Improved Mixed cond uctive and sensorineural hearing loss of right ear 8734793747 9105 H90.A31 Sensorineu ral hearing loss in left ear 1033729564 9109 H90.A22 [id number] JAMIR LEYVA [place] [facility] [address] [place] [address] 06/17/2020 10:08:06 06/17/2020 16:01:05 Dysfunction of eustachian tube 82654561 H69.93 Mixed cond uctive and sensorineural hearing loss of right ear 3271316940 9105 H90.A31 Sensorineu ral hearing loss in left ear 5418190317 9109 H90.A22 Dizziness 935420352 R42 [id number] VAZQUEZ ASKEW III, MD [place] [facility] [address] [place] [address] 11/18/2020 10:26:51 11/18/2020 12:05:25 Dysfunction of right eustachian tube 3154013945 023912 H69.91 - retained T-tube is partially obstructed . Finding of hearing aid 885575353 Z97.4 Impacted c erumen in right ear 3720308316 709299 H61.21 Dizziness 225580277 R42 - Improved Mixed cond uctive and sensorineural hearing loss of right ear 1683249258 9105 H90.A31 Sensorineu ral hearing loss in left ear 6428381268 9109 H90.A22 Acute milton al otitis externa 250676933 B36.9 - right ear Otorrhea of right ear 10 57856993 847283 H92.11 Acute righ t otitis media 468952178 H66.91 [id number] VAZQUEZ ASKEW III, MD [place] [facility] [address] [place] [address] 06/09/2021 09:54:25 06/09/2021 11:52:57 Dysfunction of right eustachian tube 2348795689 095948 H69.91 - retained T-tube is partially obstructed . Finding of hearing aid 854383252 Z97.4 Impacted c erumen in right ear 2622029764 663933 H61.21 Acute milton al otitis externa 525586802 B36.9 - right ear Dizziness 571197231 R42 - Improved Mixed cond uctive and sensorineural hearing loss of right ear 3268681795 9105 H90.A31 Sensorineu ral hearing loss in left ear 4348756218 9109 H90.A22 Otorrhea of right ear 10 59327924 576223 H92.11 Acute righ t otitis media 449784454 H66.91 [id number] VAZQUEZ ASKEW III, MD [place] [facility] [address] [place] [address] 12/11/2021 09:31:34 12/11/2021 13:13:58 Dysfunction of right eustachian tube 5399521729 414373 H69.91 - right retained ear tube Finding of hearing aid 392013467 Z97.4 Mixed cond uctive and sensorineural hearing loss of right ear 7284234930 9105 H90.A31 Sensorineu ral hearing loss in left ear 5896556606 9109 H90.A22 Otorrhea of right ear 10 13250519 056665 H92.11 Acute supp urative otitis media 585285606 H66.009 - right sided Impacted c erumen in right ear 9307883641 009809 H61.21 [id number] VAZQUEZ ASKEW III, MD [place] [address] [place] [address] 06/15/2022 09:48:04 06/15/2022 11:54:41 Dysfunction of right eustachian tube 3471174741 039997 H69.91 - right retained ear tube Mixed cond uctive and sensorineural hearing loss of right ear 6141710221 9105 H90.A31 Sensorineu ral hearing loss in left ear 4280930390 9109 H90.A22 Finding of hearing aid 525531890 Z97.4 Congestion of throat 102 817393 R09.89 Nasal septal spur 037901 009 J34.89 left side Posterior epistaxis 2323 53131 R04.0 [id number] VAZQUEZ ASKEW III, MD [place] [facility] [address] [place] [address] 12/17/2022 09:57:43 12/17/2022 13:22:56 Dysfunction of right eustachian tube 2957089989 270229 H69.91 - right retained ear tube Sensorineu ral hearing loss of bilateral ears 733046829 H90.3 Noise-portillo nina hearing loss 16174218 H83.3X3 Finding of hearing aid 867233862 Z97.4 Health Concerns Section Related Observation LastModified by Organization Detai ls LastModified Time None Recorded Concern Status LastModified by Organization Details LastModified Time None Recorded Advance Directives Directive None Recorded Payers Insurance Date Sequence Insurance Name Policy Number Policy Armando Covered Member ID Armando Member ID Guarantor Name 07/20/2018 2 [id number] Kenan Teena Marc 12/24/2022 2 [place] [id number] Kenan Dickinson Marc [id number] Kenan Tran 11/11/2024 1 [place] Kenan Teena Marc [id number] Kenan Tran Notes Date Note Type Note Provider Name and Address Organization Details Recorded Time 11/18/2020 text/html Kenan returns to day in follow up of right eustachian tube dysfuction, mixed hearing loss of the right ear, 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 He reports his dizziness has improved signficantly with the help of Meclizine, but did have a bout of veritgo in August 2020. right T-tube which was placed on December 17, 2016. He does use hearing aid amplification in both ears. He does not complain of ear pain or changes in his hearing. VAZQUEZ ASKEW III, MD [address] [place] [address], [address], [facility] 11/18/2020 11:31:29 06/09/2021 text/html Kenan is a 76 ye ar old following up today on right eustachian tube dysfunction, hearing loss and imbalance. Since his last visit Kenan is really unsure on how his ears are doing. He's having some fullness in his right ear and thinks it may need cleaned out. He is having no ear pain or drainage. He has noticed no new changes in his hearing. Additionally, Kenan has been struggling with back pain and arthritis. At his last visit Kenan reported improvement with dizziness when he started using Meclizine. He reported one episode of vertigo prior to his visit in August. Kenan had a right T-tube placed in November 2016. He was also using hearing aids in both ears. He was having no ear pain, drainage or changes in his hearing. His last audiogram was May 2020 which showed: mixed conductive hearing loss in the right ear and sensorineural hearing loss in the left ear. VAZQUEZ ASKEW III, MD [address] [place] [address], [address], [facility] 06/09/2021 11:58:36 12/11/2021 text/html Kenan is a 76 ye ar old male here today for a routine cerumenectomy. Kenan reports that his right ear does have pain occasionally. Once the pain starts, he does use sweet oil. He typically has his ears cleaned out 2-3 times a year. He has not noticed any changes to his hearing and continues to wear hearing aids. VAZQUEZ ASKEW III, MD [address] [place] [address] [place], [address], [facility] 12/11/2021 11:29:25 06/15/2022 text/html Kenan is visitin [facility] for [facility] ear. He stated that he did have some drainage from right ear and used ear drops to help clear it up recently. He denies having any other complaints or concerns with his ears. He stated that he has had trouble with having some throat congestion with blood in it in the morning. MD Gonzalez [facility] [place], [address], [facility] 06/15/2022 11:30:41 12/17/2022 text/html Kenan returns to day in follow up of his retained right T-tube and bilateral SNHL. Kenan had his right T-tube placed in November 2016. He does have a history of loud noise exposure throughout his work career history. He does uses hearing aid amplification, and Ciprodex drops as needed. Kenan is doing well with no new concerns. VAZQUEZ ASKEW III, MD [address] [place] [address], [phone], [facility] 12/17/2022 11:00:47
--- OUTSIDE RECORDS SUMMARY | 2025-03-12 07:49 | XMS_ITS | Clinical Summary ---
Author Organization Healthcare Address [address] [place] [address] Care Team Providers Care Pipe Bowls Paint Trimmer Name Role Phone Jacqueline Beck APRN Primary Care Provider [phone] Family History Medical History Relation Name Comments [...] of Treatment Not on file Care Teams Pipe Bowls Paint Trimmer Relationship Specialty Start Date End Date Jacqueline Beck APRN [facility] [place] [address] PCP - General 01/09/21
[2025-03-12 08:31] LABS: Anion Gap 15.4 mEq/L (5-15); Blood Urea Nitrogen 38 mg/dl (9-20); Calcium 9.6 mg/dl (8.4-10.2); Carbon Dioxide 29 mmol/L (22.0-30.0); Chloride 97 mmol/L (98-107); Creatinine,Serum 1.20 mg/dl (0.66-1.25); Estimated Glomerular Filt Rate 59 ml/min (>60); GFR (African American) 71 ML/MIN (>60); Glucose 156 mg/dl (74-100); Magnesium 1.8 mg/dl (1.6-2.3); Potassium 4.4 mmoL/L (3.5-5.1); Sodium 137 mmol/L (136-145)
== END 2025-03-12 23:59 | disposition home or self-care (01) ==
LOC: LAB 07:48
PROVIDERS: PCP Nurse Practitioner Family; Visit Provider Nurse Practitioner Family
DX: I25.10 Atherosclerotic heart disease of native coronary artery without angina pectoris (principal); I10 Essential (primary) hypertension
CPT/HCPCS: 36415; 80048; 83735

== ENCOUNTER 2025-03-19 09:08 | Outpatient (CLI) | payer MEDICARE, BC, SELFPAY ==
--- OUTSIDE RECORDS SUMMARY | 2025-03-19 09:11 | XMS_ITS | Data Portability ---
Author Organization ZULEMA JOAN Hernandez [facility] Address [address] [place] [address] Care Team Providers Care Knife Setter Name Role Phone ROZNIA HERNÁNDEZ Primary Care Provider [phone] Assessment No assessment recorded. Plan of Treatment Reminders Order Date Submit Date Provider Last Modified By Organization Details Last Modified Time Details Appointments None recorded. Lab None recorded. Referral None recorded. Procedures None recorded. Surgeries None recorded. Imaging None recorded. Medication Orders Ciprodex 0.3 %-0.1 % ear drops,susp ension 2021 022 [email or web address] [facility] [address] [place], [address], 3 10:23:30 Patient TargetsNo targets recorded. Patient Instructions Encounter Date Encounter Id Patient Instructions Last Modified By Organization Details Last Modified Time 11/18/2020 [id number] 1. Right cerumenectomy performed. His tube is [...] recheck. red Not available 11/18/2020 11:31:04 06/09/2021 [id number] 1. Right cerumenectomy performed-His tube was totally occluded with cerumen I is now partially cleared I will have him continue with sweet oil drops to try to clear the remaining cerumen plug. 2. Recommended using sweet oil in ears 1-2 times a week 3. Follow up in 6 months red Not available 06/09/2021 11:58:12 12/11/2021 [id number] 1. Right cerumenectomy performed today -he did have evidence of granulation tissue and inflammation around the tube. There was some squamous debris that was suctioned clear. He did tolerate this well. 2. RX: Ciprodex - 4 drops BID for 4-5 days 3. Follow up visit in 6 months or sooner if concerns arise. red Not available 12/11/2021 11:28:54 06/15/2022 [id number] 1. Nasopharynosc opy (normal with left septal [...] he is interested. 2. F/u 6 months [email or web address] Not available 06/15/2022 11:29:28 12/17/2022 [id number] 1. Continue usin g hearing aids 2. F/u in 12 months [email or web address] Not available 12/17/2022 10:51:22 Reason for Referral None Reported. Results Created Date Observation Date Name Description Value Unit Range Abnormal Flag Note LastModifiedBy Organization Detail LastModifiedTime 02/06/2002/04/2021 CT, head, w/o contr ast No observ ation record ed. [email or web address] [facility] [address], [phone], 02/11/2021 11:08:47 Result Notes None recorded. 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 6 07:15:52 Otitis media 53834381 Active 2014 From Automated Load;Provi micki: Mathieu Askew III atus: Active Not Available [facility] 6 07:15:52 Sensorine ural hearing loss 48327180 Active 2014 From Automated Load;Provi micki: Vazquez Askew III; atus: Active Not Available [facility] 6 07:15:52 Eustachia n tube disorder 03117495 Active 2014 From Automated Load;Provi micki: Vazquez Askew III;St atus: Active Not Available [facility] 6 07:15:52 Sensorine ural hearing loss of bilateral ears 156909252 Active 2014 Provider: Mahtieu Askew III atus: Active Not Available [facility] 6 07:15:52 Problem Notes None recorded. Procedures Surgical History Date Name Laterality Status Provider Name and Address Organization Details Recorded Time 022 Nasopharyngoscopy completed Shahida Antoine [facility] 06/15/2022 11:04:24 022 Cerumen removal - Instruments, Unilateral completed Isha Akers [facility] 12/11/2021 10:19:44 021 Cerumen removal - Instruments, Unilateral completed VAZQUEZ ASKEW III, MD [address] [place], [address], [facility] 06/09/2021 11:57:54 021 Cerumen removal - Instruments, Unilateral completed Anupama Medeiros [facility] 11/18/2020 11:17:22 020 Tympanogram completed DAVID POSADA AUD [address] [place], [address], [facility] 06/17/2020 15:58:24 020 Audiogram completed JAMIR LEYVA [address] [place], [address], [facility] 06/17/2020 15:58:21 020 Cerumen removal - Instruments, Unilateral completed Anupama Mala [facility] 06/17/2020 10:34:11 020 Cerumen removal - Instruments, Bilateral completed Anupama Mala [facility] 12/14/2019 10:48:00 019 Cerumen removal - Instruments, Bilateral completed Anupama Mala [facility] 12/12/2018 10:55:48 018 Cerumen removal - Instruments, Bilateral completed Anupamachayo Medeiros [facility] 11/18/2017 11:08:32 017 Tympanogram completed ASMITARic SURESH, AUD [address] [place], [address], [facility] 12/17/2016 12:14:29 017 Audiogram completed ASMITA SURESH, AUD [address] [place], [address], [facility] 12/17/2016 12:14:27 017 [facility] w/Tube, local [facility] 12:50:42 012 Ears/Nose/Throat Surgery completed Adamfidel Lowa [facility] 12/17/2016 11:34:24 Cholecystectomy completed Anjelica Alexy [facility] 12/17/2016 11:33:50 Hernia repair w/mesh completed Carolyn busby Alexy [facility] 12/17/2016 11:33:55 Ears/Nose/Throat Surgery completed Nidia Daniel [facility] 11/18/2017 10:43:53 Imaging Results None recorded. Procedure Notes None recorded. Medical Equipment None Reported. Allergies Allergen ID Allergen Name Allergen Category Reaction Reaction Severity Criticality Documentation Date Start Date Code Code System Note Provider Name and Address Organization Details Recorded Time 975250 Augmentin medicatio n Not available Not available Not available 12/17/2016 73285 2 [facility] Medications Name Sig Start Date [...] Updated DateTime 11/18/2020 175.26 cm 30.7 kg/m2 41311.21 g 57 /min 158/70 mm[Hg] Janessa Camacho [facility] 1 10:46:20 Date Recorded Body height Body mass index (BMI) Body weight Body temperature Oxygen saturation Oxygen saturation in Arterial blood by Pulse oximetry Heart rate Systolic And Diastolic Provider Name and Address Organization Details Last Updated DateTime 2 175.26 cm 33.1 kg/m2 152000. 69 g 97.2 [degF] 96 % 96 % 67 /min 149/68 mm[Hg] Lis Rendon [facility] 2 09:52:49 Date Recorded Body height Body mass index (BMI) Body weight Body temperature Heart rate Systolic And Diastolic Provider Name and Address Organization Details Last Updated DateTime 3 175.26 cm 34 kg/m2 494293. 96 g 97.3 [degF] 62 /min 143/76 mm[Hg] Eileen Heron [facility] 3 10:26:18 Date Recorded Body height Body mass index (BMI) Body weight Body temperature Oxygen saturation Oxygen saturation in Arterial blood by Pulse oximetry Heart rate Systolic And Diastolic Provider Name and Address Organization Details Last Updated DateTime 1 175.26 cm 32 kg/m2 94731.5 4 g 97.3 [degF] 98 % 98 % 58 /min 159/74 mm[Hg] Nury Baker [facility] 1 10:49:52 Date Recorded Body height Body mass index (BMI) Body weight Oxygen saturation Oxygen saturation in Arterial blood by Pulse oximetry Heart rate Systolic And Diastolic Provider Name and Address Organization Details Last Updated DateTime 2 175.26 cm 33.1 kg/m2 391748. 69 g 96 % 96 % 66 /min 139/70 mm[Hg] Nury Baker [facility] 2 10:38:15 Social History Question Answer Notes LastModified by Organizat ion Details LastModified Time Tobacco Smoking Status Former Smoker Anjelica pineda, [facility] 12/17/2016 11:33:06 What Was The Date Of [...] Not available 11:32:58 Medical History Condition Response Diabetes Y Heart Problems Y Bleeding Disorder N Anesthesia Complications N Cancer N Hypertension Y Past Encounters Encounter ID Performer Location Encounter Start Date Encounter Closed Date Diagnosis/Indication Diagnosis SNOMED-CT Code Diagnosis ICD10 Code Diagnosis Note [id number] MD ZULEMA GOLDSMITH III [facility] [address] [place] [address] 12/17/2016 11:27:38 12/17/2016 13:51:45 Mixed conductive AND sensorineural hearing loss 25122701 H90.8 Serous valerie tis media of right ear 1252603281 960401 H65.91 Dysfunctio n of right eustachian tube 0161848153 294876 H69.91 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 [id number] JAMIR RICH [facility] [address] [place] [address] 12/17/2016 11:54:51 12/17/2016 15:35:36 Dysfunction of eustachian tube 02346134 H69.91 Sensorineu ral hearing loss in left ear 0465519018 9109 H90.A22 Mixed cond uctive and sensorineural hearing loss of right ear 2602081192 9105 H90.A31 [id number] VAZQUEZ ASKEW III, MD [place] [address] [place] [address] 11/18/2017 10:19:18 11/25/2017 13:54:44 Sensorineural hearing loss of bilateral ears 834165522 H90.3 Dysfunctio n of right eustachian tube 8967569389 867084 H69.91 - retained T-tube Impacted c erumen of bilateral ears 2473251606 709468 H61.23 [id number] CATHRYN BROOKS MD SURGERY SCHEDULE [address] [place] [address] 06/28/2018 10:34:58 06/28/2018 10:35:25 [id number] MD ZULEMA GOLDSMITH III RD [address] [place] [address] 12/12/2018 10:02:13 12/12/2018 16:09:13 Sensorineural hearing loss of bilateral ears 629676665 H90.3 Dysfunctio n of right eustachian tube 5958124951 872878 H69.91 - retained T-tube Impacted c erumen of bilateral ears 9287836567 777900 H61.23 Acute milton al otitis externa 537351406 B36.9 - right ear [id number] MD ZULEMA GOLDSMITH III RD [address] [place] [address] 12/14/2019 10:30:11 12/14/2019 13:34:28 Sensorineural hearing loss of bilateral ears 171025848 H90.3 Dysfunctio n of right eustachian tube 2313428429 494856 H69.91 - retained T-tube Impacted c erumen of bilateral ears 8971124920 523239 H61.23 Finding of hearing aid 336824955 Z97.4 [id number] MD ZULEMA GOLDSMITH III RD [address] [place] [address] 06/17/2020 09:12:13 06/17/2020 12:18:55 Dysfunction of right eustachian tube 5284949124 985658 H69.91 - retained T-tube Finding of hearing aid 129671116 Z97.4 Retraction of tympanic membrane 89495454 H73.899 He does have some changes of the left tympanic membrane which are related to negative pressure. I mentioned that this could be a potential cause for some of his equilibriu m issues. Impacted c erumen in right ear 5966128859 973050 H61.21 Nasal congestion 3915039 0 R09.81 Hypertroph y of nasal turbinates 40640941 J34.3 Dizziness 527061809 R42 - Improved Mixed cond uctive and sensorineural hearing loss of right ear 8835253042 9105 H90.A31 Sensorineu ral hearing loss in left ear 8293130422 9109 H90.A22 [id number] JAMIR LEYVA [facility] [address] [place] [address] 06/17/2020 10:08:06 06/17/2020 16:01:05 Dysfunction of eustachian tube 39026068 H69.93 Mixed cond uctive and sensorineural hearing loss of right ear 9024690155 9105 H90.A31 Sensorineu ral hearing loss in left ear 3909331785 9109 H90.A22 Dizziness 355373472 R42 [id number] VAZQUEZ ASKEW III, MD [place] [facility] [address] [place] [address] 11/18/2020 10:26:51 11/18/2020 12:05:25 Dysfunction of right eustachian tube 4958703895 767338 H69.91 - retained T-tube is partially obstructed . Finding of hearing aid 612776244 Z97.4 Impacted c erumen in right ear 2772909494 112345 H61.21 Dizziness 118521839 R42 - Improved Mixed cond uctive and sensorineural hearing loss of right ear 8116545078 9105 H90.A31 Sensorineu ral hearing loss in left ear 2195403719 9109 H90.A22 Acute milton al otitis externa 540693308 B36.9 - right ear Otorrhea of right ear 10 83615981 462491 H92.11 Acute righ t otitis media 166621105 H66.91 [id number] VAZQUEZ ASKEW III, MD [place] [facility] [address] [place] [address] 06/09/2021 09:54:25 06/09/2021 11:52:57 Dysfunction of right eustachian tube 6229734515 807655 H69.91 - retained T-tube is partially obstructed . Finding of hearing aid 749169904 Z97.4 Impacted c erumen in right ear 4123691350 156198 H61.21 Acute milton al otitis externa 583595458 B36.9 - right ear Dizziness 415996115 R42 - Improved Mixed cond uctive and sensorineural hearing loss of right ear 1273897752 9105 H90.A31 Sensorineu ral hearing loss in left ear 4906782755 9109 H90.A22 Otorrhea of right ear 10 85766809 525452 H92.11 Acute righ t otitis media 109946198 H66.91 [id number] VAZQUEZ ASKEW III, MD [place] [facility] [address] [place] [address] 12/11/2021 09:31:34 12/11/2021 13:13:58 Dysfunction of right eustachian tube 3922783652 385241 H69.91 - right retained ear tube Finding of hearing aid 192051293 Z97.4 Mixed cond uctive and sensorineural hearing loss of right ear 2370791134 9105 H90.A31 Sensorineu ral hearing loss in left ear 6626942868 9109 H90.A22 Otorrhea of right ear 10 43860095 939074 H92.11 Acute supp urative otitis media 290401015 H66.009 - right sided Impacted c erumen in right ear 6731172953 751024 H61.21 [id number] VAZQUEZ ASKEW III, MD [place] [address] [place] [address] 06/15/2022 09:48:04 06/15/2022 11:54:41 Dysfunction of right eustachian tube 9303090934 804784 H69.91 - right retained ear tube Mixed cond uctive and sensorineural hearing loss of right ear 5963086260 9105 H90.A31 Sensorineu ral hearing loss in left ear 3364598336 9109 H90.A22 Finding of hearing aid 199654650 Z97.4 Congestion of throat 102 247872 R09.89 Nasal septal spur 559399 009 J34.89 left side Posterior epistaxis 2323 83205 R04.0 [id number] VAZQUEZ ASKEW III, MD [place] [facility] [address] [place] [address] 12/17/2022 09:57:43 12/17/2022 13:22:56 Dysfunction of right eustachian tube 0296111736 710116 H69.91 - right retained ear tube Sensorineu ral hearing loss of bilateral ears 941327045 H90.3 Noise-portillo nina hearing loss 96965613 H83.3X3 Finding of hearing aid 605680049 Z97.4 Health Concerns Section Related Observation LastModified by Organization Detai ls LastModified Time None Recorded Concern Status LastModified by Organization Details LastModified Time None Recorded Advance Directives Directive None Recorded Payers Insurance Date Sequence Insurance Name Policy Number Policy Armando Covered Member ID Armando Member ID Guarantor Name 07/20/2018 2 [place] Kenan Teena Marc 12/24/2022 2 [place] [id number] Kenan Dickinson Marc [id number] Kenan Tran 11/11/2024 1 [place] Kenan Teena Marc [id number] Kenan Tran Notes Date Note Type [...] in his hearing. VAZQUEZ ASKEW III, MD [address] [place] [address], [phone], [facility] 11/18/2020 11:31:29 06/09/2021 text/html Kenan is a [...] the left ear. VAZQUEZ ASKEW III, MD [address] [place] [address], [phone], [facility] 06/09/2021 11:58:36 12/11/2021 text/html Kenan is a [...] wear hearing aids. VAZQUEZ ASKEW III, MD [address] [place] [address] [place], [address], [facility] 12/11/2021 11:29:25 06/15/2022 text/html Kenan is visitin [facility] today for right ear. He stated that he did have some drainage from right ear and used ear drops to help clear it up recently. He denies having any other complaints or concerns with his ears. He stated that he has had trouble with having some throat congestion with blood in it in the morning. MD Gonzalez [facility] [place], [address], [facility] 06/15/2022 11:30:41 12/17/2022 text/html Kenan returns to [...] no new concerns. VAZQUEZ ASKEW III, MD [address] [place] [address], [address], [facility] 12/17/2022 11:00:47
--- OUTSIDE RECORDS SUMMARY | 2025-03-19 09:11 | XMS_ITS | Clinical Summary ---
Author Organization [facility] Address [address] [place] [address] Care Team Providers Care Pouncer Machine Name Role Phone Jacqueline Beck APRN Primary Care Provid er Allergies Active Allergy Reactions Criticality Noted Date Comments Amoxicillin-Pot Clavulanate Mental Status Change Medium Medications HYDROcodone-mariaa taminophen (NORCO) 5-325 MG per tablet Take 1 tablet by mouth Every 8 (Eight) Hours As Needed for Moderate Pain. 6 Active gabapentin (NEURONTIN) 300 MG capsule Take 1 capsule by mouth Every Night. 6 Active Multiple Vitamins-Minera ls (MULTIVITAMIN ADULTS 50+ PO) Take 1 tablet by mouth Daily. Active albuterol sulfate HFA 108 (90 Base) MCG/ACT inhaler Inhale 2 puffs Every 6 (Six) Hours As Needed (SHORTNESS OF BREATH OF WHEEZING). Active meloxicam (MOBIC) 7.5 MG tablet Take 1 tablet by mouth Daily. Active ipratropium-alb uterol (COMBIVENT RESPIMAT) 20-100 MCG/ACT inhaler Inhale 1 puff Every 4 (Four) to 6 (Six) Hours As Needed for Wheezing or Shortness of Air. Active vitamin C (ASCORBIC ACID) 250 MG tablet Take 1 tablet by mouth Daily. Active chlorthalidone (HYGROTON) 25 MG tablet Take 1 tablet by mouth Daily. 2 Active omeprazole (priLOSEC) 20 MG capsule Take 1 capsule by mouth Daily. Active terazosin (HYTRIN) 1 MG capsule Take 1 capsule by mouth 2 (Two) Times a Day. 180 capsule 3 2 Active lisinopril (PRINIVIL,ZESTR IL) 20 MG tablet TAKE 1 TABLET BY MOUTH TWICE DAILY 60 tablet 3 Active Stiolto Respimat 2.5-2.5 MCG/ACT aerosol solution inhaler Inhale 2 puffs Daily. 4 Active amLODIPine (NORVASC) 5 MG tablet Take 1 tablet by mouth Every Night. 4 Active pravastatin (PRAVACHOL) 80 MG tablet Take 1 tablet by mouth Every Night. Active B Complex Vitamins (VITAMIN B COMPLEX PO) Active Ascorbic Acid (Vitamin C) 500 MG capsule Active aspirin 81 MG EC tablet Take 1 tablet by mouth Daily. 4 Active polyethylene glycol (MIRALAX) 17 g packet Take 17 g by mouth Daily As Needed (Use if senna-docusate is ineffective). 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 Echocardiogram, 06/23/2009, revealing normal left ventricular systolic function with an LVEF of 55% to 60%, with mild MR and TR. b. Nuclear perfusion study, 06/23/2009, by Dr. Dixon, revealing no evidence of reversible ischemia and normal left ventricular systolic function at 65%. c. Recurrent symptoms of chest pain with mixed features and dyspnea, November 2011. d. Left heart catheterization, 01/07/2012, Janet Lund MD, revealing normal left ventricular systolic function and angiographically normal coronary arteries. Dyspnea Hypertension Dyslipidemia Diabetes mellitus Overview (07/12/2016): Diet-controlled Obesity Palpitations Overview (07/12/2016): Holter monitor dated April [address] Maribell Barrientos revealing bradycardia at 48 and symptomatic tachycardia at 120 beats per minute. ARI on CPAP Family History Medical History Relation Name Comments No Known Problems Father No Known Problems Mother Relation Name Status Comments Father Mother Social History Tobacco Use Types Packs/Day Years Used Date Smoking Tobacco: Former Cigarettes Q uit: 1988 Passive Smoke Exposure: Current Smokeless Tobacco: Never Tobacco Cessation:Counseling Given: Not Answered Passive Exposure Comments:OCCASIONAL, AROUND A FRIEND Alcohol Use Standard Drinks/Week Comments Yes 7 (1 standard drink = 0.6 oz pur e alcohol) AUDIT-C Answer Date Recorded Q1: How often do you have a drink containing alcohol? Never 05/02/2024 Q2: How many drinks containi ng alcohol do you have on a typical day when you are drinking? Patient does not drink Q3: How often do you have si x or more drinks on one occasion? Never 05/02/2024 Abuse Screen Answer Date Recorded Feels Unsafe at Home or Work/School no 05/02/2024 Feels Threatened by Someone no 11/2023 Does Anyone Try to Keep You From Having Contact with Others or Doing Things Outside Your Home? no 05/02/2024 Physical Signs of Abuse Present no 05/02/2024 Housing Stability Answer Date Recorded Current Living Arrangements home 11/2023 Potentially Unsafe Housing Conditions Not on ted e 05/02/2024 Disabilities Answer Date Recorded Difficulty Concentrating, Remembering or Making Decisions no 05/02/2024 Difficulty Managing Errands Independently no 05/02/2024 Education Answer Date Recorded Help with school or training? Not on file Preferred Language Russian 04/18/2024 Sex and Gender Information Value Date Recorded Sex Assigned at Not on file Legal Sex Male 1:23 PM EDT Gender Identity Not on file Sexual Orientation Not on file Last Filed Vital Signs Vital Sign Reading Time Taken Comments Blood Pressure 130/62 10/25/2024 1:07 PM EST Pulse 98 05/04/2024 12:00 PM EDT Temperature 36.4 C (97.5 F) 05/17/2024 12:54 PM EDT Respiratory Rate 18 05/04/2024 10:39 AM EDT Oxygen Saturation 94% 05/04/2024 12:00 PM EDT Inhaled Oxygen Concentration - - Weight 107 kg (235 lb 14.3 oz) 10/25/2024 1:07 P M EST Height 167.6 cm (5' 5.98 ) 10/25/2024 1:07 PM ES T Body Mass Index 38.09 10/25/2024 1:07 PM EST Plan of Treatment Upcoming Encounters Date Type Department Care Team (Late st Contact Info) Description 04/25/2025 1:00 PM EDT Office Visit [facility] [address] [id number] Iraida Rincon PA-C [address] [facility] [address] [place] [address] Health Maintenance Due Date Last Done Comments DIABETIC EYE EXAM 1956 DIABETIC FOOT EXAM 1956 URINE MICROALBUMIN-CREATININ E RATIO (uACR) 1956 COLOGUARD 1991 COLON CANCER SCREENING 5 YEA R SIGMOIDOSCOPY 1991 COLONOSCOPY 1991 [address] CANCER SCREENING 1991 CT COLONOGRAPHY 1991 FECAL OCCULT BLOOD TEST 1991 FIT Testing (1 year) 1991 ZOSTER VACCINE (2 of 3) 05/15/2010 03/20/2010 Pneumococcal Vaccine 50+ (2 of 2 - PCV) 11/15/2017 11/15/2016, 07/10/2010 ANNUAL WELLNESS VISIT 07/26/2018 HEPATITIS C SCREENING 07/26/2018 RSV Vaccine - Adults (1 - 1- dose 75+ series) 2021 HEMOGLOBIN A1C 10/19/2024 04/18/2024 COVID-19 Vaccine (2023-2 5 season) 2024 06/27/2024, 08/16/2023, 02/10/2023, Additional history exists INFLUENZA VACCINE 05/29/2025 05/24/2024, , 05/20/2022, Additional history exists TDAP/TD VACCINES (3 - Td or Tdap) 11/07/2033 024, 11/30/2000 Goals Goal Patient Goal Type Associated Problems Recent Progress Patient-Stated? Author Autogenerat ed Goal Care Plan Autogenerated Problem No Prakash Lima MD Medical Devices Implanted Type Area Underbaster Device Identifier Shelf Expiration Date Model / Serial / Lot Cp Totl Rev Shldr Perform Stem Rsa Perf Rev Lat/Aug Vit/E - [id number] Implanted:Qt y: 1 on 05/02/2024 by Prakash Lima MD at [facility] Implant Right: Shoulder TORNIER CAPTORNIERTOTLSH L DREVPERFSTEMRSAPE RFLATAUGVITE / / Post Shdlr Aequalis Perform Rev Prss/Fit Sht 7mm - [id number] - [id number] Implanted:Qt y: 1 on 05/02/2024 by Prakash Lima MD at [facility] Implant Right: Shoulder TORNIER [id number] 03/16/2029 [id number] / [id number] / Baseplt Shldr Aequalis Ful/Wedge Mar 15d 25mm - [id number] - [id number] Implanted:Qt y: 1 on 05/02/2024 by Prakash Lima MD at [facility] Implant Right: Shoulder TORNIER [id number] 03/28/2029 [id number] / [id number] / Scrw Aequalis Perform Periph 5x38mm - [id number] Implanted:Qt y: 3 on 05/02/2024 by Prakash Lima MD at [facility] Implant Right: Shoulder TORNIER [id number] / / Scrw Aequalis Perform Periph 5x30mm - [id number] Implanted:Qt y: 1 on 05/02/2024 by Prakash Lima MD at [facility] Implant Right: Shoulder TORNIER [id number] / / Glenosphere Shldr Aequalis Perform Std 39mm - [id number] - [id number] Implanted:Qt y: 1 on 05/02/2024 by Prakash Lima MD at [facility] Implant Right: Shoulder TORNIER [id number] 01/15/2029 [id number] / [id number] / Sut Xbraid/S Nmbr2 Tpr 1/2cir 40mm 39in Wht/Blk - [id number] Implanted:Qt y: 3 on 05/02/2024 by Prakash Lima MD at [facility] Implant Right: Shoulder ASHIA SAMIRA [id number] 05/28/2028 [id number] / / [id number] Stem Hum/Shldr Perform Std Shrt Sz3 39x16g5lo - [id number] - [id number] Implanted:Qt y: 1 on 05/02/2024 by Prakash Lima MD at [facility] Implant Right: Shoulder TORNIER [id number] 12/27/2028 [id number] / [id number] / Insrt Rev Hum/Shldr Perform Vit/E 10deg Sz3to4 39mm Pls3 - [id number] - [id number] Implanted:Qt y: 1 on 05/02/2024 by Prakash Lima MD at [facility] Implant Right: Shoulder TORNIER [id number] 07/02/2026 [id number] / [id number] / Explanted Type Area Underbaster Device Identifier Shelf Expiration Date Model / Serial / Lot Guidepin Hum Preform [id number] - [id number] Explanted:Qty : 1 on 05/02/2024 by Prakash Lima MD at [facility] Implant Right: Shoulder TORNIER [id number] 09/22/2028 [id number] / / [id number] Procedures Procedure Name Priority Date/Time Associated Diagnosis Comments HEMOGLOBIN A1C Routine 04/18/2024 11:35 AM EDT 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 Right shoulder pain, unspecified chronicity from Last 3 Months or Most Recently Relevant to Health Maintenance Results * (ABNORMAL) Hemoglobin A1c (04/18/2024 11:35 AM EDT) Hemoglobin A1C 6.70(H) 4.80 - 5.60 % 04/18/2024 12:30 PM EDT [facility] Blood Venipuncture / Unknown 04/18/2024 11:35 AM EDT 04/18/2024 12:14 PM EDT Narrative [facility] - 04/18/2024 12:30 PM EDT Hemoglobin A1C Ranges: Increased Risk for Diabetes 5.7% to 6.4% Diabetes >= 6.5% Diabetic Goal < 7.0% us Prakash Lima MD LAB BLOOD ORDERABLES Yi l Result [facility]
[address] [id number], from Last 3 Months or Most Recently Relevant to Health Maintenance Additional Health Concerns Active Problems Noted Date Diagnosed Date Autogenerated Problem 02/27/2025 Insurance MEDICARE A & B [facility] Advance Directives Documents on File Type Date Recorded Patient Concierge Expl anation POWER OF DIETETIC AIDE - SCAN 04/18/2024 11:19 AM POA 2023 LIVING WILL - SCAN 04/18/2024 11:18 AM [employer] [employer] WILL 2023 LIVING WILL - SCAN 04/18/2024 11:17 AM [employer] [employer] WILL 2023 * CPR (Attempt to Resuscitate) (Latest Code Status on File) Date Activated Date Inactivated Comments 05/02/2024 3:23 PM 05/04/2024 4:26 PM Question Answer Comments Code Status (Patient has no pulse and is not breathing): CPR (Attempt to Resuscitate) Medical Interventions (Patie nt has pulse or is breathing): Full Level Of Support Discussed With: Patient Care Teams Pouncer Machine Relationship Specialty Start Date End Date Jacqueline Beck APRN [facility]0 [facility] [address] [address] PCP - General Family Medicine 08/14/21
--- OUTSIDE RECORDS SUMMARY | 2025-03-19 09:11 | XMS_ITS | Clinical Summary ---
Author Organization Healthcare Address [address] [place] [address] Care Team Providers Care Saddle And Harness Maker Name Role Phone Jacqueline Beck APRN Primary Care Provider [phone]- [phone] Family History Medical History Relation Name Comments [...] of Treatment Not on file Care Teams Saddle And Harness Maker Relationship Specialty Start Date End Date Jacqueline Beck APRN [facility] [place] [address] PCP - General 01/09/21
--- NOTE | 2025-03-19 09:13 | MR_ITS ---
FINAL REPORT TECHNIQUE: Multiplanar MR without contrast CLINICAL HISTORY: LOW BACK PAIN x few years worse in the last year no injury or trauma pain mainly on right side FINDINGS: Sagittal images show normal vertebral height. Alignment is normal. Marrow signal pattern is unremarkable. L1-2: Unremarkable L2-3: Mild annular disc bulge without canal stenosis. L3-4: Moderate annular disc bulge with borderline central canal stenosis. L4-5: Moderate annular disc bulge. Mild facet overgrowth. Mild central canal stenosis. L5-S1: Moderate annular disc bulge. Mild facet overgrowth. Mild neuroforaminal narrowing. IMPRESSION: Moderate degenerative changes. Reviewed, Interpreted and Dictated by Lyla Rojas MD Transcribed by Maria Luisa Berg Authenticated and [facility]
== END 2025-03-19 23:59 | disposition home or self-care (01) ==
LOC: RAD 09:09
PROVIDERS: PCP Nurse Practitioner Family; Visit Provider Nurse Practitioner Family
DX: M47.816 Spondylosis without myelopathy or radiculopathy, lumbar region (principal)
CPT/HCPCS: 72148

== ENCOUNTER 2025-04-22 10:00 | Outpatient (RCR) | payer MEDICARE, BC, SELFPAY | END 2025-04-22 23:59 | disposition home or self-care (01) | LOC: PT 10:00 | PROVIDERS: PCP Nurse Practitioner Family; Visit Provider Nurse Practitioner Family | DX: M54.41 Lumbago with sciatica, right side (principal); M54.42 Lumbago with sciatica, left side; G89.29 Other chronic pain | CPT/HCPCS: 97110; 97162 ==

== ENCOUNTER 2025-05-27 11:00 | Outpatient (RCR) | payer MEDICARE, BC, SELFPAY ==
--- NOTE | 2025-05-14 15:22 | HMH.RHREAS ---
Rehab Reassessment Rehab OP Re-assessment Start: 04/30/25 13:03 Freq: Status: Active Protocol: Document 05/14/25 15:02 GIUSEPPE (Rec: 05/14/25 15:22 [email or web address] [id number]) E-signed By Selene Branch, PT Oswestry Index Section 1 Pain Intensity The pain comes and goes and is severe Section 2 Personal Care ( my way of washing or dressing even though it causes Washing,Dresing) some pain Section 3 Lifting I can lift heavy weights, but it gives me extra pain Section 4 Walking I cannot walk at all without increasing pain Section 5 Sitting I can sit in my favorite chair for as long as I like Section 6 Standing I cannot stand more than 10 minutes without increasing pain Section 7 Sleeping I get no pain in bed Section 8 Social Life I hardly have any social life because of pain Section 9 Traveling I get no pain when traveling Section 10 Changing Degreee of My pain seems to be getting better, but improvement is Pain slow Score and Risk Level Oswestry Score 23 Oswestry Risk Level Moderate Disability Rehab Re-assessment Subjective Subjective Pt reports he feels 25% improved since starting PT. Pt reports his R hip pain has abolished since receiving soft tissue massage at PT. Pt reports continued central low back pain rated 7/10 at worst and 0/10 in the mornings and at rest. Pt reports pain continues to be aggravated by walking and yard work. Pt states he is compliant with his HEP most of the time. Pt reports he returns to his MD on 05/28 for his next follow-up appointment. Objective Objective Notes Palpation: 09/01 TTP of L4-5, L5-S1 Lumbar AROM: flex 55, ext 10, LF 10 Assessment Progress Assessment Progressing as Expected Assessment Notes Pt has attended 8 PT treatment sessions consisting of aerobic exercise, lumbar mobility, core/hip strengthening, LE stretching, manual therapy and HEP with good tolerance. Pt demonstrated improved subjective report of pain, JOANIE score, lumbar AROM and tenderness to palpation this date compared to the initial evaluation. Pt continues to demonstrate limited lumbar ROM and report of moderate-severe central low back pain with walking and yard work. Overall the pt would continue to benefit from skilled PT to further improve subjective report of pain, lumbar mobility, strength and functional activity tolerance to improve overall QOL. PT Patient Goals PT Short Term 3 weeks: 10/29 Patient Goals 1. Pt to verbalize compliance with HEP to assist with overall progress. -MET 2. Improve JOANIE score to 26 to improve overall QOL/ function. -MET 3. Improve pain severity at worst to 8/10 to improve overall QOL. -MET PT Dub Room Engineer Patient 6 weeks: 2/5 Goals 1. 0-1/4 TTP of R lumbar PS and gluteal mm.-MET 2. Improve lumbar AROM flex to at least 60-70 and ext to 10 to assist with function/mobility. -NOT MET 3. Improve BLE MMT to 4-4+/5 grossly to assist with function. -NOT MET 4. Improve JOANIE score to 21 to improve overall QOL/ function. -NOT MET 5. Improve pain severity at worst to 6/10 to improve overall QOL. -MET Plan Plan Continue initial POC to address remaining deficits. This reassessment will be sent to referring provider for signature. Frequency of Therapy 2x/week Duration of Therapy 2-4 more weeks Therapeutic Exercise Yes Including Home Exercise Program Manual Therapy Yes Techniques Neuromuscular Re- Yes education Therapeutic Yes Activities to Return to Previous Functional/Work Level ADL/Self Care Yes Education Mechanical Traction Yes Dry Needling Yes Thermal Modalities Yes Electrical Yes Stimulation Ultrasound/ Yes Phonophoresis Iontophoresis Yes Massage Yes Group Therapy for Yes Medicare Eval/Re-Eval Yes Time and Billing Re-Eval Time 11 Re-Eval Billing 0 Units Charge for PT No reassessment? Charge for OT No reassessment? PHYSICIAN CERTIFICATION: I certify the specified therapy services for Kenan Tran are required, authorized, and reviewed every 30 days.
== END 2025-05-27 23:59 | disposition home or self-care (01) ==
LOC: PT 11:00
PROVIDERS: PCP Nurse Practitioner Family; Visit Provider Nurse Practitioner Family
DX: M54.41 Lumbago with sciatica, right side (principal); M54.42 Lumbago with sciatica, left side; G89.29 Other chronic pain
CPT/HCPCS: 97110; 97140

== ENCOUNTER 2025-06-10 13:59 | Outpatient (CLI) | payer MEDICARE, BC, SELFPAY ==
--- OUTSIDE RECORDS SUMMARY | 2025-06-10 14:14 | XMS_ITS | Clinical Summary ---
Author Organization Healthcare Address [address] [place] [address] Care Team Providers Care Customs Brokerage Manager Name Role Phone Jacqueline Beck APRN Primary Care Provider [phone]- [phone] Family History Medical History Relation Name Comments [...] of Treatment Not on file Care Teams Customs Brokerage Manager Relationship Specialty Start Date End Date Jacqueline Beck APRN [facility] [place] [address] PCP - General 01/09/21
[2025-06-11 08:16] LABS: PSA, Free 1.86 ng/mL
== END 2025-06-10 23:59 | disposition home or self-care (01) ==
LOC: LAB 14:01
PROVIDERS: PCP Nurse Practitioner Family; Visit Provider Urology
DX: N40.0 Benign prostatic hyperplasia without lower urinary tract symptoms (principal)
CPT/HCPCS: 36415; 84153; 84154

== ENCOUNTER 2025-06-13 09:00 | Outpatient (RCR) | payer MEDICARE, BC, SELFPAY ==
--- NOTE | 2025-06-13 10:18 | HMH.RHREAS ---
Rehab Reassessment Rehab OP Re-assessment Start: 05/30/25 10:03 Freq: Status: Active Protocol: Document 06/13/25 09:53 [email or web address] (Rec: 06/13/25 10:18 [email or web address] [id number]) E-signed By Selene Branch, PT Oswestry Index Section 1 Pain Intensity The pain comes and goes and is very mild Section 2 Personal Care ( increase the pain, but I manage not to change my way of Washing,Dresing) doing it Section 3 Lifting I can lift heavy weights, but it gives me extra pain Section 4 Walking I cannot walk more than 1/4 mile without increasing pain Section 5 Sitting I can sit in my favorite chair for as long as I like Section 6 Standing I cannot stand more than 10 minutes without increasing pain Section 7 Sleeping I get no pain in bed Section 8 Social Life Pain has restricted my social life and I do not go out often Section 9 Traveling I get no pain when traveling Section 10 Changing Degreee of My pain seems to be getting better, but improvement is Pain slow Score and Risk Level Oswestry Score 17 Oswestry Risk Level Moderate Disability Rehab Re-assessment Subjective Subjective Pt reports he feel 50% improved since starting PT. Pt reports he does continue to experience central low back pain aggravated with standing and walking. Pt reports pain at worst as 10/10 within the past week after chopping wood. Pt reports pain on average at worst as 6 /10 on VAS. He reports pain is brief and abolished with sitting and resting. Pt reports he saw his doctor recently who increased his pain medication dosage which he states helps. Pt reports he has saw a neurosurgeon in the past who did not recommend surgery, states he has had multiple epidural injections with only slight improvement in symptoms. Pt reports compliance with HEP and states soft tissue mobilization at PT has helped overall. Objective Objective Notes Palpation: 0-1/4 TTP of L4-5, L5-S1 Lumbar AROM: flex 60, ext 10, LF 10 BLE MMT: 4/5 grossly Assessment Assessment Notes Pt has attended 16 PT treatment sessions consisting of aerobic exercise, lumbar mobility, core/hip strengthening, LE stretching, manual therapy and HEP with good tolerance. Pt demonstrated improved JOANIE score , lumbar AROM and tenderness to palpation this date compared to the previous assessment. Overall, the pt has met most PT goals and is appropriate to discharge to independent HEP at this time. Pt recommended to continue HEP independently to assist with progress and referred to the massage therapist at [facility] for further conservative pain management. PT Patient Goals PT Senior Living Patient 6 weeks: 2/5 Goals 1. 0-1/4 TTP of R lumbar PS and gluteal mm.-MET 2. Improve lumbar AROM flex to at least 60-70 and ext to 10 to assist with function/mobility. -MET 3. Improve BLE MMT to 4-4+/5 grossly to assist with function. -MET 4. Improve JOANIE score to 21 to improve overall QOL/ function. -MET 5. Improve pain severity at worst to 6/10 to improve overall QOL. -NOT MET Plan Plan Discharge to independent HEP Eval/Re-Eval Yes Time and Billing Re-Eval Time 10 Re-Eval Billing 0 Units Charge for PT No reassessment? Charge for OT No reassessment? PHYSICIAN CERTIFICATION: I certify the specified therapy services for Kenan Tran are required, authorized, and reviewed every 30 days.
== END 2025-06-13 23:59 | disposition home or self-care (01) ==
LOC: PT 09:00
PROVIDERS: PCP Nurse Practitioner Family; Visit Provider Nurse Practitioner Family
DX: M51.360 Other intervertebral disc degeneration, lumbar region with discogenic back pain only (principal); G89.29 Other chronic pain
CPT/HCPCS: 97110; 97140

== ENCOUNTER 2025-08-27 09:46 | Outpatient (CLI) | payer MEDICARE, BC, SELFPAY ==
--- OUTSIDE RECORDS SUMMARY | 2025-08-27 09:51 | XMS_ITS | Clinical Summary ---
Author Organization [facility] Address [address] [place] [address] Care Team Providers Care Manager Surgical Name Role Phone EbonyJacqueline loving Katerine MORALEZ Primary Care Provid er Allergies Active Allergy [...] 500 MG 24 hr tablet 4 Active Jardiance 10 MG tablet tablet 1 tablet. 5 Active amLODIPine (NORVASC) 2.5 MG tablet 5 Active Accu-Chek Softclix Lancets lancets 1 each by Other route Daily. 5 Active Accu-Chek Guide Test test strip USE 1 STRIP ONCE DAILY TO CHECK SUGAR 5 Active furosemide (LASIX) 40 MG tablet Take 1 tablet by mouth Daily. 5 Active Active Problems Problem Noted Date Diagnosed [...] 2011. d. Left heart catheterization, 01/07/2012, Janet Lnud MD, revealing normal left ventricular systolic function [...] or training? Not on file Preferred Language Somali 04/18/2024 Sex and Gender Information Value Date Recorded Sex Assigned at Not on file Legal Sex Male 1:23 PM EDT Gender Identity Not on file Sexual Orientation Not on file Last Filed Vital Signs Vital Sign Reading Time Taken Comments Blood Pressure 108/76 04/25/2025 12:53 PM EDT Pulse 98 05/04/2024 12:00 PM EDT Temperature 36.4 C (97.5 F) 05/17/2024 12:54 PM EDT Respiratory Rate 18 05/04/2024 10:39 AM EDT Oxygen Saturation 94% 05/04/2024 12:00 PM EDT Inhaled Oxygen Concentration - - Weight 104 kg (230 lb) 04/25/2025 12:53 PM EDT Height 167.6 cm (5' 5.98 ) 04/25/2025 12:53 PM E DT Body Mass Index 37.15 04/25/2025 12:53 PM EDT Plan of Treatment Upcoming Encounters Date Type Department Care Team (Late st Contact Info) Description 04/24/2026 1:00 PM EDT Office Visit [facility] [address] [address] Iraida Rincon PA-C [address] [place] [phone] Health Maintenance Due Date Last Done Comments [...] 75+ series) 2021 HEMOGLOBIN A1C 10/19/2024 04/18/2024 INFLUENZA VACCINE 03/29/2025 05/24/2024, , 05/20/2022, Additional history exists COVID-19 Vaccine (7 - Modern a risk 2024-) 04/29/2025 06/27/2024, 08/16/2023, 02/10/2023, Additional history exists TDAP/TD VACCINES (2 - Td or Tdap) 11/07/2033 024, 11/30/2000 Medical Devices Implanted Type Area Marketing Communications Associate Device Identifier Shelf Expiration Date Model / Serial / Lot Cp Totl Rev Shldr Perform Stem Rsa Perf Rev Lat/Aug Vit/E - [id number] Implanted:Qt y: 1 on 05/02/2024 by Prakash Lima MD at [facility] Implant Right: Shoulder TORNIER CAPTORNIERTOTLSH L DREVPERFSTEMRSAPE RFLATAUGVITE / / Post Shdlr Aequalis Perform Rev Prss/Fit Sht 7mm - [id number] - [id number] Implanted:Qt y: 1 on 05/02/2024 by Prakash Lima MD at [facility] Implant Right: Shoulder TORNIER [id number] 03/16/2029 [id number] / [id number] / Baseplt Shldr Aequalis Ful/Wedge Mar 15d 25mm - [id number] - [id number] Implanted:Qt y: 1 on 05/02/2024 by Prakash Lima MD at [facility] Implant Right: Shoulder TORNIER [id number] 03/28/2029 [id number] / [id number] / Scrw Aequalis Perform Periph 5x38mm - [id number] Implanted:Qt y: 3 on 05/02/2024 by Prakash Lima MD at [facility] Implant Right: Shoulder TORNIER [id number] / / Scrw Aequalis Perform Periph 5x30mm - [id number] Implanted:Qt y: 1 on 05/02/2024 by Prakash Lima MD at [facility] Implant Right: Shoulder TORNIER [id number] / / Glenosphere Shldr Aequalis Perform Std 39mm - [id number] - [id number] Implanted:Qt y: 1 on 05/02/2024 by Prakash Lima MD at [facility] Implant Right: Shoulder TORNIER [id number] 01/15/2029 [id number] / [id number] / Sut Xbraid/S Nmbr2 Tpr 1/2cir 40mm 39in Wht/Blk - [id number] Implanted:Qt y: 3 on 05/02/2024 by Prakash Lima MD at [facility] Implant Right: Shoulder ASHIA SAMIRA [id number] 05/28/2028 [id number] / / [id number] Stem Hum/Shldr Perform Std Shrt Sz3 43b36h5nc - [id number] - [id number] Implanted:Qt y: 1 on 05/02/2024 by Prakash Lima MD at [facility] Implant Right: Shoulder TORNIER [id number] 12/27/2028 [id number] / [id number] / Insrt Rev Hum/Shldr Perform Vit/E 10deg Sz3to4 39mm Pls3 - [id number] - [id number] Implanted:Qt y: 1 on 05/02/2024 by Prakash Lima MD at [facility] Implant Right: Shoulder TORNIER [id number] 07/02/2026 [id number] / [id number] / Explanted Type Area Marketing Communications Associate Device Identifier Shelf Expiration Date Model / Serial / Lot Guidepin Hum Preform 4r795by - [id number] Explanted:Qty : 1 on 05/02/2024 by Prakash Lima MD at [facility] Implant Right: Shoulder TORNIER [id number] 09/22/2028 [id number] / / [id number] Procedures Procedure Name Priority Date/Time Associated Diagnosis Comments HEMOGLOBIN A1C Routine 04/18/2024 11:35 AM EDT 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 Right shoulder pain, unspecified chronicity from Last 3 Months or Most Recently Relevant to Health Maintenance Results * (ABNORMAL) Hemoglobin A1c (04/18/2024 11:35 AM EDT) Hemoglobin A1C 6.70(H) 4.80 - 5.60 % 04/18/2024 12:30 PM EDT [facility] Blood Venipuncture / Unknown 04/18/2024 11:35 AM EDT 04/18/2024 12:14 PM EDT Narrative [facility] - 04/18/2024 12:30 PM EDT Hemoglobin A1C Ranges: Increased Risk for Diabetes 5.7% to 6.4% Diabetes >= 6.5% Diabetic Goal < 7.0% us Prakash Lima MD LAB BLOOD ORDERABLES Yi bahman Result [facility]
[address] [place] [address], from Last 3 Months or Most Recently Relevant to Health Maintenance [facility] Advance Directives Documents on File Type Date Recorded Patient Bag Machine Operator Expl anation POWER OF SYSTEMS SPEC - SCAN 04/18/2024 11:19 AM POA 2023 [...] Of Support Discussed With: Patient Care Teams Manager Surgical Relationship Specialty Start Date End Date Jacqueline Beck APRN [address] [facility] [address] [place] [address] PCP - General Family Medicine 08/14/21
--- OUTSIDE RECORDS SUMMARY | 2025-08-27 09:51 | XMS_ITS | Clinical Summary ---
Author Organization Healthcare Address [address] [place] [address] Care Team Providers Care Consultant Electronics Name Role Phone Jacqueline Beck APRN Primary Care Provider + [phone] Family History Medical History Relation Name Comments [...] of Treatment Not on file Care Teams Consultant Electronics Relationship Specialty Start Date End Date Jacqueline Beck APRN [id number] PCP - General 01/09/21
[2025-08-27 10:51] LABS: Hematocrit 43.8 % (42.0-52.0); Hemoglobin 15.0 g/dL (14.1-18.0); Immature Granulocytes % 0.6 %; Mean Corpuscular HGB Conc 34.2 g/dL (31.8-35.4); Mean Corpuscular Hemoglobin 32.1 pg (27.0-31.2); Mean Corpuscular Volume 93.8 fl (80-94); Nucleated Red Blood Cells % 0 %; Platelet Count 212 K/mm3 (142-424); Red Blood Count 4.67 M/mm3 (4.60-6.20); Red Cell Distribution Width-SD 41.9 fL; White Blood Count 10.2 K/mm3 (4.8-10.8)
[2025-08-27 11:18] LABS: Hemoglobin A1C 7.0 % (4.0-6.0)
[2025-08-27 11:19] LABS: Albumin Level 4.3 g/dl (3.5-5.0); Chloride 99 mmol/L (98-107)
[2025-08-27 11:20] LABS: Potassium 3.7 mmoL/L (3.5-5.1); Sodium 137 mmol/L (136-145)
[2025-08-27 11:22] LABS: Alanine Aminotransferase 23 U/L (12-78); Albumin/Globulin Ratio 1.7 (1.1-1.8); Anion Gap 12.7 mEq/L (5-15); Aspartate Amino Transferase 25 U/L (17-59); Blood Urea Nitrogen 31 mg/dl (9-20); Carbon Dioxide 29 mmol/L (22.0-30.0); Creatinine,Serum 1.30 mg/dl (0.66-1.25); Estimated Glomerular Filt Rate 53 ml/min (>60); GFR (African American) 64 ML/MIN (>60); Globulin 2.5 g/dL (1.3-3.2); Total Protein,Serum 6.8 g/dl (6.3-8.2)
[2025-08-27 11:23] LABS: Alkaline Phosphatase 91 U/L (38-126); Bilirubin,Total 0.6 mg/dl (0.2-1.3); Calcium 9.8 mg/dl (8.4-10.2); Cholesterol 152 mg/dl (140-200); Glucose 143 mg/dl (74-100); HDL Cholesterol 48 mg/dl (40-60); Triglycerides 148 mg/dl (30-150)
[2025-08-27 11:41] LABS: Free T4 (Free Thyroxine) 1.17 ng/dl (0.78-2.19)
[2025-08-27 11:53] LABS: Thyroid Stimulating Hormone 3.61 uIU/mL (0.465-4.68)
== END 2025-08-27 23:59 | disposition home or self-care (01) ==
LOC: LAB 09:48
PROVIDERS: PCP Nurse Practitioner Family; Visit Provider Nurse Practitioner Family
DX: E78.5 Hyperlipidemia, unspecified (principal); R79.89 Other specified abnormal findings of blood chemistry; R97.20 Elevated prostate specific antigen [PSA]; E11.9 Type 2 diabetes mellitus without complications; J44.9 Chronic obstructive pulmonary disease, unspecified
CPT/HCPCS: 36415; 80053; 80061; 82043; 82570; 83036; 84439; 84443; 85025